=== PATIENT | female | born 1950 | race Caucasian/White ===

== ENCOUNTER → 2017-04-09 | Outpatient (CLI) | payer SELFPAY ==
[2017-04-09 20:11] LABS: Basophils # (A) 0.1 k/uL (0-0.2); Basophils % (A) 1 %; CH 28.1; CHCM 31.4; Eosinophils # (A) 0.4 k/uL (0-0.7); Eosinophils % (A) 3 %; HCT 43.3 % (34.0-46.0); HDW 2.06; HGB 13.6 gm/dL (11.4-16.0); Luc # (Auto) 0.18; Luc % (Auto) 2; Lymphocytes # (A) 3.2 k/uL (1.0-4.8); Lymphocytes % (A) 29 %; MCH 28.3 pg (25.0-35.0); MCHC 31.5 g/dL (31.0-37.0); MCV 89.7 fL (80.0-100.0); Mean Platelet Volume 7.1; Monocytes # (A) 0.6 k/uL (0-1.0); Monocytes % (A) 6 %; Neutrophils # (A) 6.7 k/uL (1.3-7.7); Neutrophils % (A) 60 %; RBC 4.83 m/uL (3.80-5.40); WBC 11.1 k/uL (3.8-10.6); WBC (Perox) 10.88
[2017-04-09 20:18] LABS: ALT 27 U/L (9-52); AST 26 U/L (14-36); Alkaline Phosphatase 200 U/L (38-126); Amylase 57 U/L (30-110); Anion Gap 13 mmol/L; Blood Urea Nitrogen 8 mg/dL (7-17); Calcium 9.8 mg/dL (8.4-10.2); Carbon Dioxide 22 mmol/L (22-30); Chloride 102 mmol/L (98-107); Glucose 104 mg/dL (74-99); Non-African American GFR(MDRD) 56 (>60 ml/min/1.73 sqM); Potassium 4.2 mmol/L (3.5-5.1); Sodium 137 mmol/L (137-145); Total Bilirubin 0.8 mg/dL (0.2-1.3); Total Protein 8.4 g/dL (6.3-8.2)
[2017-04-15 20:21] LABS: Bone % 27 % (16-56); Bone U/L 48 U/L (5-58); Intestinal % 0 % (< 14); Intestinal U/L 0 U/L (< 15); Liver % 73 % (44-84); Liver U/L 130 U/L (5-93)
== END | disposition home or self-care (01) ==
LOC: MMGSC 14:44
PROVIDERS: ATTEND Family Medicine
DX: R11.0 Nausea (principal); R10.9 Unspecified abdominal pain; R74.8 Abnormal levels of other serum enzymes
CPT/HCPCS: 36415; 80053; 82150; 83690; 84080; 85025

== ENCOUNTER 2019-08-06 14:37 | Observation (INO) | payer MEDICARE ==
[2019-08-06] MEDS ORDERED: NITROGLYCERIN OINT 1 INCH/GM PACKET TOPICAL STA (15:01)
--- NOTE | 2019-08-06 15:23 | XR ---
EXAMINATION TYPE: XR chest 2V DATE OF EXAM: 08/06/2019 COMPARISON: 03/21/2015 HISTORY: Chest pain TECHNIQUE: Frontal and lateral views of the chest are obtained. FINDINGS: Heart is normal. Lungs are clear of consolidation. There is a left axillary pacemaker. The re are chest leads. There is no pleural effusion. There is spurring in the thoracic spine. IMPRESSION: No active cardiac pulmonary disease. Normal heart. No change.
--- NOTE | 2019-08-06 15:27 | ED ---
General Adult HPI - General Chief complaint: Chest Pain Stated complaint: Chest Pain sent by ME Time Seen by Provider: 08/06/19 14:40 Source: patient, RN notes reviewed Mode of arrival: wheelchair Limitations: no limitations - History of Present Illness Initial comments: This is a 69-year-old female has a past medical history significant for having had a heart attack in the past as well as a pacemaker. Patient also states she has high blood pressure high cholesterol. Patient states she also has a family history of heart disease. Patient comes in today complaining of right-sided chest pain that radiates up into her neck and into her back. Patient states this all began after she had a stressful conversation with her daughter yesterday. Patient states the pain is intermittent and is currently there again. Patient states aspirin did seem to help it. Patient received aspirin at the urgent care prior to coming to here. Patient states she's also short of breath with the pain. Patient denies any diaphoresis or nausea or vomiting. Patient denies belly pain patient denies any leg swelling or calf tenderness. Patient denies headache patient denies numbness or weakness per patient denies lightheadedness or dizziness. Patient denies any recent fever chills or cough. - Related Data Home Medications Medication Instructions Recorded Confirmed Aspirin EC [Ecotrin Low Dose] 81 mg PO HS 08/06/19 08/06/19 Diltiazem HCl [Diltiazem ER] 240 mg PO DAILY 08/06/19 08/06/19 Losartan/Hydrochlorothiazide 1 tab PO DAILY 08/06/19 08/06/19 [Losartan-Hctz 100-25 mg Tab] Rosuvastatin Calcium [Crestor] 10 mg PO HS 08/06/19 08/06/19 Zolpidem Tartrate [Ambien] 10 mg PO HS 08/06/19 08/06/19 Allergies Allergy/AdvReac Type Severity Reaction Status Date / Time nitroglycerin Allergy Nausea & Verified 08/06/19 16:20 Vomiting & Diarrhea Review of Systems ROS Statement: Those systems with pertinent positive or pertinent negative responses have been documented in the HPI. ROS Other: All systems not noted in ROS Statement are negative. Past Medical History Past Medical History: Coronary Artery Disease (CAD), Chest Pain / Angina, Hyperlipidemia, Hypertension, Myocardial Infarction ([place]) History of Any Multi-Drug Resistant Organisms: None Reported Past Surgical History: Section, Cholecystectomy, Heart Catheterization, Pacemaker Past Psychological History: No Psychological Hx Reported Smoking Status: Never smoker Past Alcohol Use History: None Reported Past Drug Use History: None Reported General Exam - General Exam Comments Initial Comments: GENERAL: Patient is well-developed and well-nourished. Patient is nontoxic and well- hydrated and is in mild distress. ENT: Neck is soft and supple. No significant lymphadenopathy is noted. Oropharynx is clear. Moist mucous membranes. Neck has full range of motion without eliciting any pain. EYES: The sclera were anicteric and conjunctiva were pink and moist. Extraocular movements were intact and pupils were equal round and reactive to light. Eyelids were unremarkable. PULMONARY: Unlabored respirations. Good breath sounds bilaterally. No audible rales rh onchi or wheezing was noted. CARDIOVASCULAR: There is a regular rate and rhythm without any murmurs gallops or rubs. ABDOMEN: Soft and nontender with normal bowel sounds. No palpable organomegaly was noted. There is no palpable pulsatile mass. SKIN: Skin is clear with no lesions or rashes and otherwise unremarkable. NEUROLOGIC: Patient is alert and oriented x3. Cranial nerves II through XII are grossly intact. Motor and sensory are also intact. Normal speech, volume and content. Symmetrical smile. MUSCULOSKELETAL: Normal extremities with adequate strength and full range of motion. LYMPHATICS: No significant lymphadenopathy is noted PSYCHIATRIC: Normal psychiatric evaluation. Limitations: no limitations Course Vital Signs 08/06/19 08/06/19 14:42 15:58 Temperature 97.9 F Pulse Rate 84 78 Respiratory 18 18 Rate Blood Pressure 142/85 153/83 O2 Sat by Pulse 98 97 Oximetry Medical Decision Making - Medical Decision Making EKG shows a sinus rhythm at 89 bpm AR interval is 212 QRS is 82 QT interval 442 QTC is 537. Patient has an occasional paced beat. Patient has no ST segment elevation or depression. I started the patient heparin for unstable angina like symptoms. I spoke with Dr. Ragland she agreed to admit the patient admitted the patient I wrote admitting orders I consulted cardiology. I continued heparin and aspirin and Nitropaste on the floor. Patient continued to have intermittent pain while in the emergency department. - Lab Data Result diagrams: 08/06/19 15:05 08/06/19 15:05 Lab Results 08/06/19 08/06/19 08/06/19 Range/Units 15:05 15:05 15:05 WBC 16.9 H (3.8-10.6) k/uL RBC 4.36 (3.80-5.40) m/uL Hgb 12.1 (11.4-16.0) gm/dL Hct 37.0 (34.0-46.0) % MCV 84.9 (80.0-100.0) fL MCH 27.8 (25.0-35.0) pg MCHC 32.7 (31.0-37.0) g/dL RDW 13.0 (11.5-15.5) % Plt Count 445 (150-450) k/uL Neutrophils % 71 % Lymphocytes % 19 % Monocytes % 6 % Eosinophils % 2 % Basophils % 1 % Neutrophils # 12.0 H (1.3-7.7) k/uL Lymphocytes # 3.3 (1.0-4.8) k/uL Monocytes # 0.9 (0-1.0) k/uL Eosinophils # 0.3 (0-0.7) k/uL Basophils # 0.1 (0-0.2) k/uL PT 9.5 (9.0-12.0) sec INR 0.9 (<1.2) APTT 27.9 (22.0-30.0) sec Sodium 134 L (137-145) mmol/L Potassium 4.4 (3.5-5.1) mmol/L Chloride 96 L (98-107) mmol/L Carbon Dioxide 24 (22-30) mmol/L Anion Gap 14 mmol/L BUN 13 (7-17) mg/dL Creatinine 1.06 H (0.52-1.04) mg/dL Est GFR (CKD-EPI)AfAm 63 (>60 ml/min/1.73 sqM) Est GFR (CKD-EPI)NonAf 54 (>60 ml/min/1.73 sqM) Glucose 128 H (74-99) mg/dL Calcium 9.7 (8.4-10.2) mg/dL Magnesium 2.0 (1.6-2.3) mg/dL Total Bilirubin 0.5 (0.2-1.3) mg/dL AST 34 (14-36) U/L ALT 20 (9-52) U/L Alkaline Phosphatase 154 H (38-126) U/L Troponin I (0.000-0.034) ng/mL Total Protein 8.4 H (6.3-8.2) g/dL Albumin 4.3 (3.5-5.0) g/dL 08/06/19 Range/Units 15:05 WBC (3.8-10.6) k/uL RBC (3.80-5.40) m/uL Hgb (11.4-16.0) gm/dL Hct (34.0-46.0) % MCV (80.0-100.0) fL MCH (25.0-35.0) pg MCHC (31.0-37.0) g/dL RDW (11.5-15.5) % Plt Count (150-450) k/uL Neutrophils % % Lymphocytes % % Monocytes % % Eosinophils % % Basophils % % Neutrophils # (1.3-7.7) k/uL Lymphocytes # (1.0-4.8) k/uL Monocytes # (0-1.0) k/uL Eosinophils # (0-0.7) k/uL Basophils # (0-0.2) k/uL PT (9.0-12.0) sec INR (<1.2) APTT (22.0-30.0) sec Sodium (137-145) mmol/L Potassium (3.5-5.1) mmol/L Chloride (98-107) mmol/L Carbon Dioxide (22-30) mmol/L Anion Gap mmol/L BUN (7-17) mg/dL Creatinine (0.52-1.04) mg/dL Est GFR (CKD-EPI)AfAm (>60 ml/min/1.73 sqM) Est GFR (CKD-EPI)NonAf (>60 ml/min/1.73 sqM) Glucose (74-99) mg/dL Calcium (8.4-10.2) mg/dL Magnesium (1.6-2.3) mg/dL Total Bilirubin (0.2-1.3) mg/dL AST (14-36) U/L ALT (9-52) U/L Alkaline Phosphatase (38-126) U/L Troponin I <0.012 (0.000-0.034) ng/mL Total Protein (6.3-8.2) g/dL Albumin (3.5-5.0) g/dL Critical Care Time Critical Care Time: Yes Total Critical Care Time: 35 Disposition Clinical Impression: Unstable angina pectoris Disposition: ADMITTED IP TO THIS HOSP Referrals: Ledy Muniz MD [Primary Care Provider] - 1-2 days Time of Disposition: 16:30
[2019-08-06 15:31] LABS: Basophils # (A) 0.1 k/uL (0-0.2); Basophils % (A) 1 %; Eosinophils # (A) 0.3 k/uL (0-0.7); Eosinophils % (A) 2 %; HGB 12.1 gm/dL (11.4-16.0); Lymphocytes # (A) 3.3 k/uL (1.0-4.8); Lymphocytes % (A) 19 %; MCH 27.8 pg (25.0-35.0); MCHC 32.7 g/dL (31.0-37.0); MCV 84.9 fL (80.0-100.0); Mean Platelet Volume 6.3; Monocytes # (A) 0.9 k/uL (0-1.0); Monocytes % (A) 6 %; Neutrophils % (A) 71 %; Platelet Count 445 k/uL (150-450); RBC 4.36 m/uL (3.80-5.40); WBC 16.9 k/uL (3.8-10.6)
[2019-08-06 15:40] LABS: INR 0.9 (<1.2); Partial Thromboplastin Time 27.9 sec (22.0-30.0); Prothrombin Time 9.5 sec (9.0-12.0)
[2019-08-06 15:45] LABS: Albumin 4.3 g/dL (3.5-5.0); Calcium 9.7 mg/dL (8.4-10.2); Total Bilirubin 0.5 mg/dL (0.2-1.3); Total Protein 8.4 g/dL (6.3-8.2)
[2019-08-06 15:47] LABS: Potassium 4.4 mmol/L (3.5-5.1)
[2019-08-06] MEDS ORDERED: HEPARIN SODIUM,PORCINE 5,000 UNIT/ML 1 ML VIAL IV ONE (16:24)
[2019-08-06] MEDS ORDERED: HEPARIN SOD,PORK IN 0.45% NACL 25,000 UNIT in 0.45% NACL 1 250ML.BAG IV SCH (16:30)
[2019-08-06] MEDS ORDERED: NITROGLYCERIN SL TABS 0.4 MG TAB SUBLINGUAL PRN (16:31)
[2019-08-06] MEDS ORDERED: NALOXONE 0.4 MG/ML 1 ML VIAL IV PRN (17:28)
[2019-08-06] MEDS ORDERED: ALPRAZolam 0.5 MG TAB PO PRN (17:28)
[2019-08-06] MEDS ORDERED: traMADol 50 MG TAB PO PRN (17:28)
[2019-08-06] MEDS ORDERED: MELATONIN 3 MG TABLET PO PRN (17:28)
[2019-08-06] MEDS ORDERED: ACETAMINOPHEN TAB 325 MG TAB PO PRN (17:28)
[2019-08-06 17:32] VITALS: RESP 18
[2019-08-06 17:41] VITALS: BMI 45.3
[2019-08-06] MEDS: NITROGLYCERIN OINT 1 INCH/GM PACKET TOPICAL SCH ×2 (17:44→22:50)
--- NOTE | 2019-08-06 17:54 | P.HPIM ---
History of Present Illness H&P Date: 08/06/19 Chief Complaint: chest pain Patient is a 69-year-old female with a past medical history of myocardial infarction, hypertension, dyslipidemia, permanent pacemaker, and prior TIA who presented to the emergency department with chest pain. Patient states she was under stress due to her son and daughter having issues. In the emergency department she underwent an extensive evaluation. On arrival her vital signs were within normal limits. Laboratory analysis demonstrated an elevated white blood count. 16.9, troponin was normal, creatinine was 1.06 which is near baseline for the patient. EKG was performed which showed normal sinus rhythm at a rate of 89 with a first-degree AV block and prolonged QT. She received a dose of aspirin and had a nitro patch placed. Arrangements are made for admission for observation. Patient seen and examined at bedside in the emergency department. She states that she has had increased stress recently due to her son and [id number] not getting along and no longer living together. Then her daughter called her last night concerned about her own marriage and high blood pressure issues. The patient then began having right sided arm pain that radiated up into her chest and into her back. She states that she had some mild shortness of breath, felt lightheaded, was seen some blurry vision, and felt slightly nauseous. She took an aspirin and felt slightly better. She then has had intermittent chest pain since that time. She has not had any numbness or tingling, she did not have any radiation to her jaw or arm. She reports that the pain was a 9 out of 10. She tried some extra strength Tylenol this afternoon which helped slightly but did not offer significant relief so she presented to the emergency department. She feels as though this possible anxiety or panic attack but was concerned due to her prior history. She reports that she had a cough productive of yellow sputum for about a week but that has gotten better. She denies any other recent changes in medications. She follows with Dr. [facility] and last saw him approximately one month ago. She reports that she typically has high blood pressure at home and it ranges anywhere from 120s to 180s. It is especially sensitive to anxiety and typically is high when she feels anxious. Review of Systems Pertinent positives and negatives as discussed in HPI, a complete review of systems was performed and all other systems are negative. Past Medical History Past Medical History: Coronary Artery Disease (CAD), Chest Pain / Angina, Hyperlipidemia, Hypertension, Myocardial Infarction ([place]) Additional Past Medical History / Comment(s): TIA 3 History of Any Multi-Drug Resistant Organisms: None Reported Past Surgical History: Section, Cholecystectomy, Heart Catheterization, Pacemaker Past Psychological History: No Psychological Hx Reported Smoking Status: Never smoker Past Alcohol Use History: None Reported Past Drug Use History: None Reported Additional History: Lives with her , intermittently uses a walker she's having pain in her legs - Past Family History Father Family Medical History: Diabetes Mellitus, Myocardial Infarction ([place]) Sister(s) Additional Family Medical History / Comment(s): enlarged heart at age 50 Medications and Allergies Home Medications Medication Instructions Recorded Confirmed Type Aspirin EC [Ecotrin Low Dose] 81 mg PO HS 08/06/19 08/06/19 History Diltiazem HCl [Diltiazem ER] 240 mg PO DAILY 08/06/19 08/06/19 History Losartan/Hydrochlorothiazide 1 tab PO DAILY 08/06/19 08/06/19 History [Losartan-Hctz 100-25 mg Tab] Rosuvastatin Calcium [Crestor] 10 mg PO HS 08/06/19 08/06/19 History Zolpidem Tartrate [Ambien] 10 mg PO HS 08/06/19 08/06/19 History Allergies Allergy/AdvReac Type Severity Reaction Status Date / Time nitroglycerin Allergy Nausea & Verified 08/06/19 16:20 Vomiting & Diarrhea Physical Exam Osteopathic Statement: *. No significant issues noted on an osteopathic structural exam other than those noted in the History and Physical/Consult. Vitals: Vital Signs Temp Pulse Pulse Resp BP BP Pulse Ox 08/06/19 17:19 97.7 F 90 18 178/89 97 08/06/19 17:00 98.2 F 87 16 171/81 98 08/06/19 15:58 78 18 153/83 97 08/06/19 14:42 97.9 F 84 18 142/85 98 Intake and Output 08/06/19 08/06/19 08/06/19 06:59 14:59 22:59 Other: Weight 109.316 kg General: non toxic, no distress, appears at stated age, Obese Derm: no unusual rashes/lesions no unusual ecchymoses, warm, dry Head: atraumatic, normocephalic, symmetric Eyes: EOMI, no lid lag, anicteric sclera, pupils equal round reactive to light ENT: Nose and ears atraumatic, no thrush, no pharyngeal erythema Neck: No thyromegaly, no cervical lymphadenopathy, trachea midline, supple Mouth: no lip lesion, mucus membranes moist Cardiovascular: S1S2 reg, no murmur, positive posterior tibial pulse bilateral, trace edema, capillary refill less than 2 seconds, chest pain no reproducible Lungs: Decreased breath sounds bilateral, no rhonchi, no rales , no accessory muscle use Abdominal: soft, nontender to palpation, no guarding, no appreciable organomegaly, normal bowel sounds Ext: no gross muscle atrophy, muscle strength 5 out of 5 in all 4 extremities grossly, no contractures, Neuro: CN II-XI grossly intact, light touch intact all 4 extremities, finger to nose within normal limits, Psych: Alert, oriented, appropriate affect Results CBC & Chem 7: 08/06/19 15:05 08/06/19 15:05 Labs: Abnormal Lab Results - Last 24 Hours (Table) 08/06/19 08/06/19 Range/Units 15:05 15:05 WBC 16.9 H (3.8-10.6) k/uL Neutrophils # 12.0 H (1.3-7.7) k/uL Sodium 134 L (137-145) mmol/L Chloride 96 L (98-107) mmol/L Creatinine 1.06 H (0.52-1.04) mg/dL Glucose 128 H (74-99) mg/dL Alkaline Phosphatase 154 H (38-126) U/L Total Protein 8.4 H (6.3-8.2) g/dL Chest x-ray: report reviewed Thrombosis Risk Factor Assmnt - DVT/VTE Prophylaxis DVT/VTE Prophylaxis: Low risk, early ambulation encouraged Assessment and Plan Assessment: Chest pain -Most likely secondary to acute anxiety but patient does have a significant coronary history -Telemetry, serial troponins, aspirin, nitro, on heparin drip, - Heart Score 5 - Cardio consult HTN, elevated - Xanax X 1 - resume home medications - follow BP, if not improved with control of anxiety then will need to start additional medications Anxiety - situation trial of Xanax - Follow-up with PCP [facility] - lipide profile in AM - statin Morbid obeisty BMI 44.1 - Outpatient structured weight loss The patient is placed in observation with an anticipated less than 2 midnight stay for evaluation of chest pain. Surrogate decision-maker: CODE STATUS: Full DVT prophylaxis: early ambulation Discussed with: Patient, , ED physician Anticipated discharge date: 24- [address]: home A total of 55 minutes was spent on the care of this complex patient more than 50% of the time was spent in counseling and care coordination.
[2019-08-06 20:41] LABS: Appearance,Urine Clear (Clear); Bilirubin,Urine Negative (Negative); Blood,Urine Negative (Negative); Color,Urine Yellow; Glucose,Urine (UA) Negative (Negative); Ketones,Urine Negative (Negative); Leukocyte Esterase,Urine Negative (Negative); Nitrite,Urine Negative (Negative); Protein,Urine Negative (Negative); Specific Gravity,Urine 1.012 (1.001-1.035); Urobilinogen,Urine <2.0 mg/dL (<2.0)
[2019-08-06] MEDS ORDERED: ATORVASTATIN 20 MG TAB PO SCH (21:00)
[2019-08-06] MEDS ORDERED: ZOLPIDEM 10 MG TAB PO PRN (21:00)
[2019-08-06] MEDS ORDERED: ASPIRIN 81 MG PO SCH (21:00)
[2019-08-06] MEDS ORDERED: HEPARIN SODIUM,PORCINE 5,000 UNIT/ML 1 ML VIAL IV PRN (21:09)
[2019-08-06 22:49] VITALS: TEMP 97.7
[2019-08-07 04:13] LABS: Cholesterol 195 mg/dL (<200); HDL Cholesterol 48 mg/dL (40-60); LDL Cholesterol,Calculated 117 mg/dL (0-99); Triglycerides 150 mg/dL (<150)
[2019-08-07] MEDS: NITROGLYCERIN OINT 1 INCH/GM PACKET TOPICAL SCH (06:23)
[2019-08-07 08:02] VITALS: BP 130/78; PULSE 84
[2019-08-07 08:35] LABS: HCT 33.7 % (34.0-46.0); HGB 10.9 gm/dL (11.4-16.0); MCH 28.3 pg (25.0-35.0); MCHC 32.4 g/dL (31.0-37.0); MCV 87.5 fL (80.0-100.0); Mean Platelet Volume 8.3; Platelet Count 439 k/uL (150-450); RBC 3.85 m/uL (3.80-5.40); RDW 13.5 % (11.5-15.5); WBC 13.9 k/uL (3.8-10.6)
[2019-08-07] MEDS ORDERED: LOSARTAN-HCTZ 50-12.5 MG 1 EACH TAB PO SCH ×2 (09:00)
[2019-08-07] MEDS ORDERED: DILTIAZEM CD 240 MG CAP.ER.24H PO SCH (09:00)
[2019-08-07] MEDS ORDERED: ASPIRIN 325 MG TAB PO SCH (09:00)
--- NOTE | 2019-08-07 09:17 | CONS ---
CONSULTATION Mikaela Chapin is a lady with history of obesity, hypertension and hypercholesterolemia who has a sick sinus syndrome and has a permanent pacemaker. She had a stressful situation at home with her son and daughter and after making a phone call, she felt very tense, exhausted, tightness in the chest and pressure and went to the urgent care and was then transferred from there to this place. I am not sure if this lady had a prior myocardial infarction or even CAD diagnosis. She does have sick sinus syndrome, obesity and hypertension and had a permanent pacemaker in the past. She is resting comfortably without symptoms. She feels a lot better. Her troponins are normal. Her discomfort in her chest was actually on the right side of the chest with radiation to the right shoulder. Quality is also atypical. She is resting comfortably without symptoms. PAST MEDICAL HISTORY: 1. Hypertension. 2. Sick sinus syndrome with a permanent pacemaker. 3. Hyperlipidemia. 4. Obesity. MEDICATIONS: At home include diltiazem extended release 240 mg daily, Ambien, Crestor 10 mg daily, losartan HCTZ 100/25 one tab daily, aspirin 81 mg daily. The patient was somewhat intolerant to beta blockers. PHYSICAL EXAMINATION: Blood pressure is 130/70, pulse rate is 80 per minute and regular. HEENT unremarkable. Fundus was not examined by me. Neck is somewhat short and thick. No JVD or carotid bruit. S1-S2 heard normally but distantly. Lungs reveal diminished air entry both lung vazquez. Abdomen is soft, nontender. Lower extremities reveal palpable pulses. No edema. Central nervous system is normal. EKG revealed a sinus mechanism with an occasional paced beat, nonspecific ST and T-wave changes. No acute findings. LABORATORY DATA: Laboratory data revealed unremarkable troponins. IMPRESSION: 1. Atypical chest pain. 2. Anxiety. 3. History of sick sinus syndrome with a permanent pacemaker. 4. Hypertension. 5. Hyperlipidemia. RECOMMENDATIONS: I am recommending that we increase activity and see how she does. If she has no further symptoms, she can be discharged and I will perform a stress test as an outpatient. I discussed my thoughts in detail with the patient. Thank you very much for the consult. MMODL / IJN: [id number] /
--- NOTE | 2019-08-07 10:36 | P.DS ---
Providers Date of admission: 08/06/19 16:35 Expected date of discharge: 08/07/19 Attending physician: Le Ragland DO Consults: 08/06/19 16:31 Consult Physician Urgent Consulting Provider: [facility] Consult Reason/Comments: Unstable angina Do you want consulting provider notified?: Yes Primary care physician: Ledy Muniz [facility] Course: Discharge Diagnosis: Chest suspect secondary to acute anxiety attack Hypertensive urgency on arrival Acute anxiety Dyslipidemia Morbid obesity with BMI 44.1 Hospital Course: Patient is a 69-year-old female with a past medical history of myocardial infarction, hypertension, dyslipidemia, permanent pacemaker due to sick sinus syndrome, and prior TIA who presented to the emergency department with chest pain. Patient states she was under stress due to her son and daughter having issues. In the emergency department she underwent an extensive evaluation. On arrival her vital signs were within normal limits. Laboratory analysis demonstrated an elevated white blood count. 16.9, troponin was normal, creatinine was 1.06 which is near baseline for the patient. EKG was performed which showed normal sinus rhythm at a rate of 89 with a first-degree AV block and prolonged QT. She received a dose of aspirin and had a nitro patch placed. Arrangements were for observation for acute coronary syndrome. Repeat troponins were negative. Consider trial of Xanax which helped improve her symptoms. She was seen by cardiology who felt she was appropriate for outpatient stress testing. Cholesterol levels were slightly elevated with an LDL of 117 and this will be followed by cardiology in the clinic. She felt as though Xanax helped her with her acute anxiety. I did radiate to supply her with a 7 day supply of Xanax to take as needed twice a day. She'll follow up with her primary care physician Dr. Muniz next week to look for a more permanent solution for her anxiety. I did discuss with her that Xanax can become addictive and I do not remember commended for long-term anxiety. She is also going to try to distance herself from anxiety provoking situations. Patient seen and examined at bedside.No chest pain, shortness of breath, no nausea today, Xanax yesterday helped relieve symptoms and made her feel much better Vital signs reviewed and stable. General: non toxic, no distress, appears at stated age, obese Derm: warm, dry Head: atraumatic, normocephalic, symmetric Eyes: EOMI, no lid lag, anicteric sclera Mouth: no lip lesion, mucus membranes moist Cardiovascular: S1S2 reg, no murmur, positive posterior tibial pulse bilateral, Lungs: CTA bilateral, no rhonchi, no rales , no accessory muscle use Psych: Alert, oriented, appropriate affect A total of 25 minutes of time were spent preparing this complex discharge summary . Plan - Discharge Summary Discharge Rx Participant: No New Discharge Prescriptions: New ALPRAZolam [Xanax] 0.5 mg PO BID PRN #14 tablet PRN Reason: Anxiety Continue Zolpidem Tartrate [Ambien] 10 mg PO HS Rosuvastatin Calcium [Crestor] 10 mg PO HS Losartan/Hydrochlorothiazide [Losartan-Hctz 100-25 mg Tab] 1 tab PO DAILY Aspirin EC [Ecotrin Low Dose] 81 mg PO HS Diltiazem HCl [Diltiazem 24Hr ER] 240 mg PO DAILY Discharge Medication List Aspirin EC [Ecotrin Low Dose] 81 mg PO HS 08/06/19 [History] Diltiazem HCl [Diltiazem 24Hr ER] 240 mg PO DAILY 08/06/19 [History] Losartan/Hydrochlorothiazide [Losartan-Hctz 100-25 mg Tab] 1 tab PO DAILY 08/06/19 [History] Rosuvastatin Calcium [Crestor] 10 mg PO HS 08/06/19 [History] Zolpidem Tartrate [Ambien] 10 mg PO HS 08/06/19 [History] ALPRAZolam [Xanax] 0.5 mg PO BID PRN #14 tablet 08/07/19 [Rx] Follow up Appointment(s)/Referral(s): Prince Noonan MD [STAFF PHYSICIAN] - 1 Week Ledy Muniz MD [Primary Care Provider] - 1-2 days Activity/Diet/Wound Care/Special Instructions: Activity: As tolerated Diet: Hearth healthy Special Instructions: Return to the emergency with worsening chest pain
== END 2019-08-07 10:58 | disposition home or self-care (01) ==
LOC: EC 14:37 → 1SOBS 16:35
PROVIDERS: ADMIT Internal Medicine; ATTEND Internal Medicine
DX: R07.89 Other chest pain (principal); R06.02 Shortness of breath; M79.601 Pain in right arm; R42 Dizziness and giddiness; R11.0 Nausea; R05 Cough; H53.8 Other visual disturbances; I16.0 Hypertensive urgency; F41.9 Anxiety disorder, unspecified; E78.5 Hyperlipidemia, unspecified; E78.00 Pure hypercholesterolemia, unspecified; I10 Essential (primary) hypertension; D72.829 Elevated white blood cell count, unspecified; I25.10 Atherosclerotic heart disease of native coronary artery without angina pectoris; E66.01 Morbid (severe) obesity due to excess calories; Z68.41 Body mass index [BMI] 40.0-44.9, adult; I44.0 Atrioventricular block, first degree; I25.2 Old myocardial infarction; Z95.0 Presence of cardiac pacemaker; Z86.73 Personal history of transient ischemic attack (TIA), and cerebral infarction without residual deficits; Z79.82 Long term (current) use of aspirin; Z79.899 Other long term (current) drug therapy; Z88.8 Allergy status to other drugs, medicaments and biological substances; Z90.49 Acquired absence of other specified parts of digestive tract; Z83.3 Family history of diabetes mellitus; Z82.49 Family history of ischemic heart disease and other diseases of the circulatory system
CPT/HCPCS: 96376; 96365; 99291; 36415; 93005; 80061; 80053; 83735; 84484 ×2; 85025; 85027; 85610; 85730 ×2; 81003; 71046; G0378 ×2; J1644 ×2

== ENCOUNTER → 2020-06-28 | Day surgery (SDC) | payer MEDICARE ==
[2020-06-25 15:50] VITALS: BMI 37.9
[2020-06-28] MEDS: SODIUM CHLORIDE 0.9% 1,000 ML IV SCH ×2 (07:12→07:14)
[2020-06-28] MEDS: IOPAMIDOL-370 50ML BTL INJ ONE ×2 (07:23→07:36)
[2020-06-28 07:36] LABS: Calcium 9.4 mg/dL (8.4-10.2); Potassium 4.2 mmol/L (3.5-5.1)
[2020-06-28 07:50] VITALS: RESP 16
[2020-06-28 08:23] VITALS: BP 174/77
[2020-06-28 08:24] VITALS: PULSE 68; TEMP 98.7
--- NOTE | 2020-06-28 15:28 | P.PCN ---
Preoperative Diagnosis: Diagnosis Low atrial impedances, noise in the atrial lead Chronically elevated RV thresholds Intermittent RV pacing about 10% Pacemaker device approaching CAM Procedures performed Cinefluoroscopy of the leads Left upper extremity venogram Cinefluoroscopy of the leads was performed right atrial and RV leads were in stable position in the right atrial appendage and the RV. No fractures or breaks were appreciated 15 mL of IV dye was injected in the left arm and venography of the left axillary and subclavian vein was performed. A very mild subclavian vein stenosis was noted. This can accommodate to 15 leads Plan Discussed with the patient Once the device at CAM I will implant in atrial lead, screw-in lead as well as either a new RV lead or and LV lead We will consider the Medtronic [id number] leads were implantation
== END ==
LOC: CATHEP 06:32
PROVIDERS: ATTEND Internal Medicine Clinical Cardiac Electrophysiology
DX: T82.897A Other specified complication of cardiac prosthetic devices, implants and grafts, initial encounter (principal); T82.118A Breakdown (mechanical) of other cardiac electronic device, initial encounter; I87.1 Compression of vein; I10 Essential (primary) hypertension; E78.00 Pure hypercholesterolemia, unspecified; F41.9 Anxiety disorder, unspecified; I49.5 Sick sinus syndrome; E78.5 Hyperlipidemia, unspecified; E66.3 Overweight; Z68.37 Body mass index [BMI] 37.0-37.9, adult; Z72.0 Tobacco use; Z79.82 Long term (current) use of aspirin; Z79.899 Other long term (current) drug therapy
CPT/HCPCS: 36005; 75820; 76000; 80048; Q9967

== ENCOUNTER → 2020-12-13 | Outpatient (CLI) | payer MEDICARE | END | disposition home or self-care (01) | LOC: LABWHC1 12:23 | PROVIDERS: ATTEND Family Medicine | DX: R05 Cough (principal); R09.89 Other specified symptoms and signs involving the circulatory and respiratory systems | CPT/HCPCS: U0003; C9803; U0005 ==

== ENCOUNTER → 2021-05-10 | Outpatient (CLI) | payer MEDICARE ==
[2021-05-10 13:36] LABS: HCT 36.2 % (34.0-46.0); HGB 11.6 gm/dL (11.4-16.0); MCH 28.1 pg (25.0-35.0); MCV 87.8 fL (80.0-100.0); Mean Platelet Volume 6.8; Platelet Count 388 k/uL (150-450); RBC 4.13 m/uL (3.80-5.40); WBC 8.3 k/uL (3.8-10.6)
[2021-05-10 13:52] LABS: Potassium 4.2 mmol/L (3.5-5.1)
== END | disposition home or self-care (01) ==
LOC: LABPAT 12:49
PROVIDERS: ATTEND Internal Medicine Clinical Cardiac Electrophysiology
DX: Z01.812 Encounter for preprocedural laboratory examination (principal); I49.5 Sick sinus syndrome
CPT/HCPCS: 80051; 82565; 84520; 85027

== ENCOUNTER 2021-05-16 06:02 | Day surgery (SDC) | payer MEDICARE ==
[2021-05-14 14:37] VITALS: BMI 38.9
[2021-05-16] MEDS ORDERED: SODIUM CHLORIDE 0.9% 1,000 ML IV SCH ×2 (06:05)
[2021-05-16] MEDS ORDERED: ceFAZolin 1 GM in SODIUM CHLORIDE 0.9% 250 ML IRRIGATION PRN (06:05)
[2021-05-16 06:48] VITALS: TEMP 97.9
[2021-05-16] MEDS ORDERED: ePHEDrine SULFATE/0.9% NACL/PF 50 MG/5 ML SYRINGE IV ONE (07:17)
[2021-05-16] MEDS ORDERED: MIDAZOLAM 2 MG/2 ML VIAL ONE (07:17)
[2021-05-16] MEDS ORDERED: fentaNYL (PF) 50 MCG/ML 2 ML AMP ONE (07:17)
[2021-05-16] MEDS ORDERED: PROPOFOL 10 MG/ML 20 ML VIAL IV ONE (07:17)
[2021-05-16] MEDS ORDERED: diphenhydrAMINE 50 MG/ML 1 ML VIAL ONE (07:17)
[2021-05-16] MEDS ORDERED: IOPAMIDOL-250 50ML BTL IV ONE (07:53)
[2021-05-16] MEDS ORDERED: LIDOCAINE 1% INJ 10MG/ML (20 ML MDV) ONE (08:04)
[2021-05-16] MEDS ORDERED: LIDOCAINE 1% INJ 10MG/ML (20 ML MDV) SQ ONE ×2 (08:25→08:35)
[2021-05-16] MEDS ORDERED: VANCOMYCIN 1,500 MG in SODIUM CHLORIDE 0.9% 250 ML IVPB STA (09:27)
[2021-05-16] MEDS ORDERED: ACETAMINOPHEN TAB 325 MG TAB PO PRN (10:03)
[2021-05-16] MEDS ORDERED: HYDROcodone/APAP 5-325MG 1 EACH TAB PO PRN (10:03)
--- NOTE | 2021-05-16 10:03 | P.EPPROC ---
- EP Procedure Note Electrophysiology Procedure Note: Left upper extremity venogram 10 mL IV dye injected in the left arm Patent left cephalic and left axillary/subclavian vein Plan Proceed with dual-chamber pacemaker generator change and implantation of a new atrial lead Extended procedure This was a long procedure for the following reasons This was a subcutaneous pocket fairly high up close to the shoulder The capsule was heavily calcified Near-total capsulectomy of this calcified capsule was performed A completely new subfascial pocket was made more Blood to the current pocket Following that while axillary vein access was obtained expeditiously, regular wire would not pass down from the innominate vein into the SVC RA An advantage by was used and with some difficulty was able to negotiate the SVC innominate junction and passed the wire down the IVC A long sheath 25 cm in length was placed across the SVC innominate junction to allow for smooth placement of a right atrial lead Along of 52 cm right atrial lead him a screw-in, Medtronic was used and placed in the right atrial appendage Implantation of a new right atrial lead The chronic right atrial lead was applying lead implanted almost 20 years back The impedance was 100 ohms A new right atrial lead, Medtronic screw-in 52 cm, model #5076 and serial number [id number] was implanted in the right atrial appendage and screwed in Good current of injury P waves 2-3 mV pacing impedance 874 ohms and pacing threshold 1 V at 0.4 ms Adequate he was provided Good stability was documented before and after removing the long sheath The lead was secured to the underlying pectoralis muscle The chronic lead was disconnected from the old generator This was capped and then secured to the pectoralis muscle Generator change, dual-chamber The old dual-chamber [employer] generator was explanted The new generator was implanted, Medtronic Model number W1 DR 01 him a serial number [id number] The device was placed in the new subfascial pocket The wound was closed in 3 layers and dressed per protocol IV vancomycin was also administered through the procedure The patient tolerated the procedure well without any acute complications
[2021-05-16] MEDS ORDERED: ALPRAZolam 0.5 MG TAB PO PRN (10:06)
--- NOTE | 2021-05-16 10:39 | XR ---
EXAMINATION TYPE: XR chest 1V portable DATE OF EXAM: 05/16/2021 COMPARISON: 08/06/2019, 01/28/2021 HISTORY: Lead placement check TECHNIQUE: Single frontal view of the chest is obtained. FINDINGS: A multi lead pacemaker is seen. Be 2 leads overlying the right atrial region and a single lead overlying the right ventricular region no pneumothorax. Limited inspiration. Heart size stable with no overt failure. No sizable pleural ef fusion. Postsurgical change right shoulder with diffuse osteopenia and arthropathy left shoulder. IMPRESSION: 1. Pacemaker placement with no postprocedural complication.
[2021-05-16] MEDS ORDERED: ACETAMINOPHEN IV (For NPO) 1,000 MG in EMPTY BAG 1 BAG IVPB ONE (12:00)
[2021-05-16 12:13] VITALS: RESP 18
[2021-05-16 13:07] VITALS: BP 143/67; PULSE 67
[2021-05-17] MEDS ORDERED: NON FORMULARY DRUG (Losartan/Hydrochlorothiazide [Losartan-Hctz 100-25 Mg Tab] 1 EACH Tabl PO SCH (09:00)
== END 2021-05-16 16:03 | disposition home or self-care (01) ==
LOC: CATHEP 06:02
PROVIDERS: ATTEND Internal Medicine Clinical Cardiac Electrophysiology
DX: Z45.010 Encounter for checking and testing of cardiac pacemaker pulse generator [battery] (principal); Z20.822 Contact with and (suspected) exposure to COVID-19; I49.5 Sick sinus syndrome; I10 Essential (primary) hypertension; E78.5 Hyperlipidemia, unspecified; F17.210 Nicotine dependence, cigarettes, uncomplicated; E78.00 Pure hypercholesterolemia, unspecified; Z79.82 Long term (current) use of aspirin; Z79.899 Other long term (current) drug therapy; I25.2 Old myocardial infarction; I25.10 Atherosclerotic heart disease of native coronary artery without angina pectoris; Z86.73 Personal history of transient ischemic attack (TIA), and cerebral infarction without residual deficits; F41.9 Anxiety disorder, unspecified; K21.9 Gastro-esophageal reflux disease without esophagitis; Z88.8 Allergy status to other drugs, medicaments and biological substances
CPT/HCPCS: 33208; 87635; 71045; C1769 ×3; C1892 ×2; C1898; C1785; J2250; J1200; J0690; J2001; J3010; J2704; Q9966; 33216; 33228

== ENCOUNTER 2021-10-19 13:03 | Inpatient (IN) | payer MEDICARE ==
[2021-10-19] MEDS ORDERED: MORPHINE SULFATE 4 MG/ML SYRINGE IM STA (13:28)
--- NOTE | 2021-10-19 14:05 | XR ---
EXAMINATION TYPE: AP view pelvis and 2 views left hip: XR femur 2 views LT DATE OF EXAM: 10/19/2021 Comparison: None Clinical History: 71-year-old female with pain after fall Findings: SI joints appear intact as does the pubic symphysis. There is osteopenia. There is a impacted, slight ly rotated, and laterally angulated subcapital femoral neck fracture. No additional acute fractures seen of the mid to distal femur. Some underlying degenerative change at the medial lateral compartments of the knee. Impression: Osteopenia with an impacted, slightly rotated and angulated, subcapital left femoral neck fracture.
[2021-10-19 15:05] LABS: Basophils # (A) 0.1 k/uL (0-0.2); Basophils % (A) 0 %; Eosinophils # (A) 0.2 k/uL (0-0.7); Eosinophils % (A) 1 %; HCT 35.9 % (34.0-46.0); Lymphocytes # (A) 1.3 k/uL (1.0-4.8); Lymphocytes % (A) 10 %; MCH 29.9 pg (25.0-35.0); MCHC 33.5 g/dL (31.0-37.0); MCV 89.2 fL (80.0-100.0); Mean Platelet Volume 7.7; Monocytes # (A) 0.6 k/uL (0-1.0); Monocytes % (A) 5 %; Neutrophils # (A) 10.9 k/uL (1.3-7.7); Neutrophils % (A) 83 %; Platelet Count 330 k/uL (150-450); RBC 4.02 m/uL (3.80-5.40); RDW 12.7 % (11.5-15.5); WBC 13.1 k/uL (3.8-10.6)
[2021-10-19] MEDS ORDERED: NALOXONE 0.4 MG/ML 1 ML VIAL IV PRN (15:11)
--- NOTE | 2021-10-19 16:11 | XR ---
EXAMINATION TYPE: XR chest 1V DATE OF EXAM: 10/19/2021 COMPARISON: 05/16/2021 HISTORY: Preop TECHNIQUE: Single view Single view There is no heart failure nor confluent pneumonic infiltrate. Costophrenic angles are clear. There i s left axillary pacemaker. There is plate with screws fixing the proximal right humerus. IMPRESSION: No active cardiopulmonary disease. No change.
[2021-10-19] MEDS: SODIUM CHLORIDE 0.9% 1,000 ML IV SCH (17:21)
[2021-10-19 17:41] LABS: Basophils # (A) 0.1 k/uL (0-0.2); Basophils % (A) 0 %; Eosinophils # (A) 0.2 k/uL (0-0.7); Eosinophils % (A) 2 %; HCT 35.7 % (34.0-46.0); HGB 12.2 gm/dL (11.4-16.0); Lymphocytes # (A) 1.8 k/uL (1.0-4.8); Lymphocytes % (A) 14 %; MCH 30.1 pg (25.0-35.0); MCHC 34.4 g/dL (31.0-37.0); MCV 87.5 fL (80.0-100.0); Mean Platelet Volume 6.4; Monocytes # (A) 0.5 k/uL (0-1.0); Monocytes % (A) 4 %; Neutrophils # (A) 10.2 k/uL (1.3-7.7); Neutrophils % (A) 79 %; Platelet Count 327 k/uL (150-450); RBC 4.07 m/uL (3.80-5.40); RDW 12.9 % (11.5-15.5); WBC 12.9 k/uL (3.8-10.6)
[2021-10-19 17:55] LABS: Albumin 3.6 g/dL (3.5-5.0); Calcium 9.2 mg/dL (8.4-10.2); Potassium 4.5 mmol/L (3.5-5.1); Total Bilirubin 1.1 mg/dL (0.2-1.3); Total Protein 7.2 g/dL (6.3-8.2)
[2021-10-19 18:04] LABS: INR 0.9 (<1.2); Partial Thromboplastin Time 24.4 sec (22.0-30.0); Prothrombin Time 9.9 sec (9.0-12.0)
[2021-10-19] MEDS: MORPHINE SULFATE 4 MG/ML SYRINGE IV PRN (20:06)
--- NOTE | 2021-10-20 01:15 | P.CONS ---
History of Present Illness - Reason for Consult Consult date: 10/20/21 - History of Present Illness The patient is a 71-year-old female with a PMH of coronary artery disease, sick sinus syndrome status post pacemaker placement, hypertension, hyperlipidemia, who presents to the emergency room after a fall at home. The patient reports that she had been in her usual state of health when on 10/18 evening, she walked to her bathroom and after urinating, upon standing up, she felt lightheaded and fell to the ground, hitting her left side. She reports immediate severe pain at the site of the impact and that she was unable to get up. Her activated EMS, who were able to help the patient into bed. The patient however refused to go to the hospital and attempted to stay home hoping that the pain would improve. Upon waking up on the morning of 10/19, she noticed that she was still not able to walk, at which point she decided to go to the emergency room. In the emergency room, a hip x-ray revealed a subcapital impacted left femoral neck fracture along with osteopenia. At time of interview, the patient reported no pain at rest but reports pain with any movement of the left leg. She denied experiencing head trauma or trauma elsewhere at time of the fall. Reports a long-standing history of postural unsteadiness. Denied losing consciousness. She denied any additional complaints. She normally walks without assistive devices but does have a walker for as needed basis at home. She reports significant "arthritis" throughout her body with inability to stand for more lonnie n 5 minutes. She denied experiencing chest discomfort, shortness of breath, nausea, vomiting, abdominal pain, diarrhea. Denies fever, chills, cough, headaches, weakness, numbness, tingling. EKG in the emergency room revealed normal sinus rhythm at [address]/T-wave changes noted as reviewed by me. Laboratory evaluation was remarkable for leukocytosis of 12.9, sodium 129, AST 138, ALT 49. The patient denied tobacco or alcohol use. Review of systems: Pertinent positives and negatives as discussed in HPI, a complete review of systems was performed and all other systems are negative. Physical examination: General: non toxic, no distress, appears at stated age, obese Derm: no unusual rashes/lesions no unusual ecchymoses, warm, dry Head: atraumatic, normocephalic, symmetric Eyes: EOMI, no lid lag, anicteric sclera, pupils equal round reactive to light ENT: Nose and ears atraumatic, no thrush, no pharyngeal erythema Neck: No thyromegaly, no cervical lymphadenopathy, trachea midline, supple Mouth: no lip lesion, mucus membranes moist Cardiovascular: S1S2 reg, no murmur, positive posterior tibial pulse bilateral, no edema, capillary refill less than 2 seconds Lungs: CTA bilateral, no rhonchi, no rales , no accessory muscle use Abdominal: soft, nontender to palpation, no guarding, no appreciable organomegaly, normal bowel sounds Ext: no gross muscle atrophy, muscle strength 5 out of 5 bilateral upper extremities, strength 3 out of 5 of right lower extremity and 2 out of 5 of the left lower extremity due to pain, no contractures, no left hip overlying skin abnormalities noted with tenderness diffusely Neuro: CN II-XI grossly intact, light touch intact all 4 extremities, finger to nose within normal limits, Psych: Alert, oriented, appropriate affect Assessment/plan Traumatic left femoral subcapital fracture -Defer management including pain control to the primary surgery service Abnormal LFTs -The patient is not currently on a statin and denied alcohol use -Monitor for now Chronic conditions:Sick sinus syndrome, coronary artery disease, HTN, HLD -C/w home ASA, Losartan and Lopressor Preoperative evaluation -The patient is partially dependent elderly female with mild systemic disease with METS < 4 -NSQIP score (risk of any complication): 8.4% (vs 9.7% average risk) -Cardiology consulted for pacemaker management -The patient's current Na is 129 with hyponatremia a contra-indication for urgent surgical procedures. Will recommend gentle IV hydration and recommend to hold off on surgery unless Na > 130. -The patient has no additional modifiable risk factors for an urgent orthopedic procedure. We appreciate this opportunity to be involved in this patient's care. We will follow the patient with you. For any further questions, please not hesitate to contact the sound inpatient team. Past Medical History Past Medical History: Coronary Artery Disease (CAD), Chest Pain / Angina, CVA/TIA, Hyperlipidemia, Hypertension, Myocardial Infarction ([place]), Osteoarthritis (OA) Additional Past Medical History / Comment(s): TIA 3, SICK SINUS SYNDROME Last Myocardial Infarction Date:: unknown History of Any Multi-Drug Resistant Organisms: None Reported Past Surgical History: Section, Cholecystectomy, Heart Catheterization, Pacemaker Additional Past Surgical History / Comment(s): medronic pacemaker Past Anesthesia/Blood Transfusion Reactions: No Reported Reaction Type of Cardiac Device: Permanent Pacemaker Device Placement Date:: April 2021 Past Psychological History: No Psychological Hx Reported Smoking Status: Never smoker Past Alcohol Use History: None Reported Past Drug Use History: None Reported - Past Family History Father Family Medical History: Diabetes Mellitus, Myocardial Infarction ([place]) Sister(s) Additional Family Medical History / Comment(s): enlarged heart at age 50 Medications and Allergies Home Medications Medication Instructions Recorded Confirmed Type Zolpidem Tartrate [Ambien] 10 mg PO HS 08/06/19 10/19/21 History Acetaminophen [Tylenol Arthritis] 1,300 mg PO Q12H PRN 10/19/21 10/19/21 History Losartan Potassium 50 mg PO DAILY 10/19/21 10/19/21 History Metoprolol Tartrate [Lopressor] 25 mg PO DAILY 10/19/21 10/19/21 History Aspirin 81 mg PO DAILY 10/20/21 10/20/21 History Allergies Allergy/AdvReac Type Severity Reaction Status Date / Time nitroglycerin Allergy Nausea & Verified 05/16/21 06:25 Vomiting & Diarrhea Physical Exam Vitals: Vital Signs Temp Pulse Pulse Resp BP BP Pulse Ox 10/19/21 19:05 98.5 F 81 15 126/78 97 10/19/21 17:52 98.2 F 96 18 154/80 97 10/19/21 17:01 77 18 162/64 98 10/19/21 13:05 98.2 F 103 H 18 184/90 98 Intake and Output 10/19/21 10/19/21 10/20/21 14:59 22:59 06:59 Output Total 450 Balance -450 Output: Urine 450 Other: Voiding Method Indwelling Catheter Weight 104.326 kg 104.326 kg Results CBC & Chem 7: 10/19/21 17:27 10/19/21 17:27 Labs: Abnormal Lab Results - Last 24 Hours (Table) 10/19/21 10/19/21 10/19/21 Range/Units 14:47 17:27 17:27 WBC 13.1 H 12.9 H (3.8-10.6) k/uL Neutrophils # 10.9 H 10.2 H (1.3-7.7) k/uL Sodium 129 L (137-145) mmol/L Glucose 107 H (74-99) mg/dL AST 138 H (14-36) U/L ALT 49 H (4-34) U/L
[2021-10-20] MEDS: SODIUM CHLORIDE 0.9% 1,000 ML IV SCH ×4 (03:31→22:24)
[2021-10-20] MEDS: METOPROLOL TARTRATE 25 MG TAB PO SCH (07:51)
[2021-10-20] MEDS: MORPHINE SULFATE 4 MG/ML SYRINGE IV PRN ×3 (07:56→15:03)
[2021-10-20] MEDS: ASPIRIN 81 MG PO SCH (08:00)
[2021-10-20] MEDS: LOSARTAN 50 MG TAB PO SCH (08:00)
--- NOTE | 2021-10-20 09:41 | P.HPOR ---
History of Present Illness H&P Date: 10/20/21 Chief Complaint: Left femoral neck fracture Patient is a 71-year-old female who presented to [facility] yesterday afternoon with regards to pain to the left lower extremity. Apparently the patient fell on 10/18/2021 when going to the bathroom late at night. Patient became lightheaded and tripped and fell directly on the left side. Patient's pain progressively worst into the next day, she was unable to tolerate weightbearing on that extremity, she was brought to [facility] for further evaluation. After arrival to the hospital, imaging lab tests were done. Images demonstrated an impacted subcapital left femur fracture. Was contacted by the emergency room staff, was able to review the images. I discussed the case with attending Dr. Ng. Patient was admitted under orthopedic care with plan for likely surgical intervention. Internal medicine was consulted for medical management. Patient was evaluated this morning at bedside, she is resting comfortably, her is present. She states most of the discomfort is in the left lower extremity, this is when she moves, she is rather comfortable if she's not moving. She denies any previous orthopedic surgery to the left lower extremity. She denies any pain of the right lower extremity, bilateral upper extremities, new onset cervical, thoracic or lumbar pain. She denies any numbness or tingling in the bilateral upper or lower extremities. She denies any changes or loss of bowel or bladder function currently. Patient lives at home with her , she does not drive anymore. She does have a walker that she occasionally will use. She does have a history of pacemaker placement, cardiology has evaluated patient and cleared her for surgery. Currently patient denies any headaches, lightheadedness, chest pain, shortness of breath, abdominal discomfort, nausea or vomiting. Review of Systems Constitutional: Reports as per HPI Past Medical History Past Medical History: Coronary Artery Disease (CAD), Chest Pain / Angina, CVA/TIA, Hyperlipidemia, Hypertension, Myocardial Infarction ([place]), Osteoarthritis (OA) Additional Past Medical History / Comment(s): TIA 3, SICK SINUS SYNDROME Last Myocardial Infarction Date:: unknown History of Any Multi-Drug Resistant Organisms: None Reported Past Surgical History: Section, Cholecystectomy, Heart Catheterization, Pacemaker Additional Past Surgical History / Comment(s): medronic pacemaker Past Anesthesia/Blood Transfusion Reactions: No Reported Reaction Type of Cardiac Device: Permanent Pacemaker Device Placement Date:: April 2021 Past Psychological History: No Psychological Hx Reported Smoking Status: Never smoker Past Alcohol Use History: None Reported Past Drug Use History: None Reported - Past Family History Father Family Medical History: Diabetes Mellitus, Myocardial Infarction ([place]) Sister(s) Additional Family Medical History / Comment(s): enlarged heart at age 50 Medications and Allergies Home Medications Medication Instructions Recorded Confirmed Type Zolpidem Tartrate [Ambien] 10 mg PO HS 08/06/19 10/19/21 History Acetaminophen [Tylenol Arthritis] 1,300 mg PO Q12H PRN 10/19/21 10/19/21 History Losartan Potassium 50 mg PO DAILY 10/19/21 10/19/21 History Metoprolol Tartrate [Lopressor] 25 mg PO DAILY 10/19/21 10/19/21 History Aspirin 81 mg PO DAILY 10/20/21 10/20/21 History Allergies Allergy/AdvReac Type Severity Reaction Status Date / Time nitroglycerin Allergy Nausea & Verified 05/16/21 06:25 Vomiting & Diarrhea Physical Examination Left lower extremity: No obvious open lesions or sores are visualized throughout the extremity, there is no cervical areas of erythema or soft tissue swelling She has obvious tenderness with palpation to the left lower extremity, this being more proximally near the hip joint. She is nontender with palpation surrounding the knee, lower leg, foot or ankle Logroll maneuver is extremity reproduces severe pain, she is unable to straight leg raise Range of motion of the hip and knee were not assessed, plantar flexion, dorsiflexion, EHL, FHL are intact. No apparent focal neurological deficits Sensation to light touch is intact throughout the extremity Calf is soft, no tenderness with palpation Dorsalis pedis pulses 2+ General orthopedic exam: Well-healed incision on the anterior aspect of the right shoulder, there are no open lesions or sores visualized throughout the bilateral upper extremities, this to include areas of erythema or soft tissue swelling. Full range of motion is noted in the bilateral upper extremities, no apparent focal neurological deficits. She demonstrates no point tenderness throughout the bilateral upper extremities She demonstrates tenderness with palpation to the cervical, thoracic or lumbar midline or paraspinal region No lesions or sores are visualized throughout the right lower extremity, no apparent areas of erythema or soft tissue swelling Logroll maneuver reproduces no pain of the right lower extremity, there is no areas of point tenderness. Range of motion is intact in all major muscle groups of the right lower extremity, no apparent focal neurological deficits. Her sensory exam to light touch is intact at the extremity. Her calf is soft, no tenderness with palpation. Dorsalis pedis pulses 2+ Results - Labs Labs: Abnormal Lab Results - Last 24 Hours (Table) 10/19/21 10/19/21 10/19/21 Range/Units 14:47 17:27 17:27 WBC 13.1 H 12.9 H (3.8-10.6) k/uL Neutrophils # 10.9 H 10.2 H (1.3-7.7) k/uL Sodium 129 L (137-145) mmol/L Glucose 107 H (74-99) mg/dL AST 138 H (14-36) U/L ALT 49 H (4-34) U/L H & H 10/19/21 10/19/21 Range/Units 14:47 17:27 Hgb 12.0 12.2 (11.4-16.0) gm/dL Hct 35.9 35.7 (34.0-46.0) % Coagulation 10/19/21 Range/Units 17:27 INR 0.9 (<1.2) Result Diagrams: 10/19/21 17:27 10/19/21 17:27 - Diagnostic results Hip x-ray: report reviewed, image reviewed (Report and images were reviewed of the left hip. Images demonstrate impacted left subcapital femur fracture. No other acute osseous abnormalities appreciated) Assessment and Plan Assessment: Displaced, impacted left subcapital femoral neck fracture Status post fall from standing Morbidly obese Other medical comorbidities Plan: I was able to discuss the case, this to include both physical exam findings and imaging studies with my attending Dr. Ng. We are recommending a left hip hemiarthroplasty for surgical intervention, plan is to proceed with surgery on 10/20/2021. Risk and benefits of the procedure were discussed with the patient, this to include but not exclude blood clots, infection, development blood clot, neurovascular injury, pain and stiffness, inadequate healing of bone, need for further surgery. Patient and family are in good understanding and would like to proceed. Patient's sodium level at admission was 129, redraw on 10/20/2021 was done, awaiting results. It was noted internal medicine's note they would like the sodium level at 130 or higher for surgical clearance. Patient was seen by cardiology and clearance was obtained Pain control, continue with current medication, we'll readjust medications after surgery GI and DVT prophylaxis, discussed use of blood thinner after surgery for 30 days. We'll likely utilize Eliquis 2.5 mg twice a day Nonweightbearing left lower extremity at this time, plan for weight-bear as tolerated with walker after surgery PT/OT evaluation Encourage incentive spirometer Discharge planning: Discussed discharge options with patient, she is adamant going home. We discussed the possibility of subacute rehab if she does not progress. This will be assessed postoperatively and discussion with case management/social work Time with Patient: Less than 30
[2021-10-20 10:01] LABS: ALT 77 U/L (4-34); AST 95 U/L (14-36); African American GFR (CKD) 73 (>60 ml/min/1.73 sqM); Albumin 3.5 g/dL (3.5-5.0); Alkaline Phosphatase 133 U/L (38-126); Anion Gap 7 mmol/L; Blood Urea Nitrogen 8 mg/dL (7-17); Calcium 9.2 mg/dL (8.4-10.2); Carbon Dioxide 22 mmol/L (22-30); Chloride 100 mmol/L (98-107); Globulin 3.6 g/dL; Glucose 101 mg/dL (74-99); Non-African American GFR(CKD) 63 (>60 ml/min/1.73 sqM); Potassium 4.5 mmol/L (3.5-5.1); Sodium 129 mmol/L (137-145); Total Bilirubin 0.7 mg/dL (0.2-1.3); Total Protein 7.1 g/dL (6.3-8.2)
--- NOTE | 2021-10-20 10:40 | P.CRDCN ---
History of Present Illness History of present illness: HISTORY OF PRESENTING ILLNESS This is a pleasant 71-year-old and female past medical history significant for hypertension, dyslipidemia and sick sinus syndrome status post permanent pacemak er implantation. She follows in the office with Dr. Noonan. We have been asked to see in consultation for preoperative evaluation. She woke up in the middle the night to use the restroom. She thinks she stood too quickly and she became acutely lightheaded and fell unfortunately causing the left femur fracture. She is scheduled to undergo surgical intervention scheduled for this morning. She is seen and examined sitting up in bed in no acute distress. She has no symptoms of chest pain or shortness of breath. EKG revealed sinus rhythm with no acute ST or T-wave abnormalities noted. Chest x-ray is negative for acute cardiopulmonary process. Laboratory data reviewed, WBC 12.9, hemoglobin 12.2, platelets 327, sodium 129, potassium 4.5, creatinine 0.93. Current daily cardiac medications include aspirin 81 mg daily, Lopressor 25 mg daily and losartan 50 mg daily. Most recent stress test performed in the office the Lexiscan stress test in 2017 that was negative for reversible ischemia. Most recent echocardiogram obtained January 2020 revealed preserved LV systolic function with ejection fraction 55%. REVIEW OF SYSTEMS At the time of my exam: CONSTITUTIONAL: Denies fever or chills. CARDIOVASCULAR: Denies chest pain, shortness of breath, orthopnea, PND or palpitations. RESPIRATORY: Denies cough. GASTROINTESTINAL: Denies abdominal pain, diarrhea, constipation, nausea or vomiting. MUSCULOSKELETAL: Complains of left leg and hip pain. NEUROLOGIC: Denies numbness, tingling, headache or weakness. ENDOCRINE: Denies fatigue, weight change, polydipsia or polyurina. GENITOURINARY: Denies burning, hematuria or urgency with micturation. HEMATOLOGIC: Denies history of anemia or bleeding. PHYSICAL EXAMINATION Blood pressure 174/73 heart rate 83 afebrile and maintaining oxygen saturation on room air. CONSTITUTIONAL: No apparent distress. HEENT: Head is normocephalic. Pupils are equal, round. Sclerae anicteric. Mucous membranes of the mouth are moist. No JVD. No carotid bruit. CHEST EXAMINATION: Lungs are clear to auscultation. No chest wall tenderness is noted on palpation or with deep breathing. HEART EXAMINATION: Regular rate and rhythm. S1, S2 heard. No murmurs, gallops or rub. ABDOMEN: Soft, nontender. EXTREMITIES: 2+ peripheral pulses, no lower extremity edema and no calf tenderness. NEUROLOGIC EXAMINATION: Patient is awake, alert and oriented x3. ASSESSMENT Fall likely related to orthostatic changes Femur fracture Hypertension Dyslipidemia Sick sinus syndrome status post permanent pacemaker implantation PLAN From a cardiac perspective the patient is stable to undergo surgical intervention. She has average risk given her comorbid conditions. Recommend cautious fluid administration and optimal blood pressure control intraoperatively. DVT prophylaxis per orthopedics. We will continue to follow and make recommendations accordingly. Thank you kindly for this consultation. Nurse Practitioner note has been reviewed, I agree with a documented findings and plan of care. Patient was seen and examined. Past Medical History Past Medical History: Coronary Artery Disease (CAD), Chest Pain / Angina, CVA/TI A, Hyperlipidemia, Hypertension, Myocardial Infarction ([place]), Osteoarthritis (OA) Additional Past Medical History / Comment(s): TIA 3, SICK SINUS SYNDROME Last Myocardial Infarction Date:: unknown History of Any Multi-Drug Resistant Organisms: None Reported Past Surgical History: Section, Cholecystectomy, Heart Catheterization, Pacemaker Additional Past Surgical History / Comment(s): medronic pacemaker Past Anesthesia/Blood Transfusion Reactions: No Reported Reaction Type of Cardiac Device: Permanent Pacemaker Device Placement Date:: April 2021 Past Psychological History: No Psychological Hx Reported Smoking Status: Never smoker Past Alcohol Use History: None Reported Past Drug Use History: None Reported - Past Family History Father Family Medical History: Diabetes Mellitus, Myocardial Infarction ([place]) Sister(s) Additional Family Medical History / Comment(s): enlarged heart at age 50 Medications and Allergies Home Medications Medication Instructions Recorded Confirmed Type Zolpidem Tartrate [Ambien] 10 mg PO HS 08/06/19 10/19/21 History Acetaminophen [Tylenol Arthritis] 1,300 mg PO Q12H PRN 10/19/21 10/19/21 History Losartan Potassium 50 mg PO DAILY 10/19/21 10/19/21 History Metoprolol Tartrate [Lopressor] 25 mg PO DAILY 10/19/21 10/19/21 History Aspirin 81 mg PO DAILY 10/20/21 10/20/21 History Allergies Allergy/AdvReac Type Severity Reaction Status Date / Time nitroglycerin Allergy Nausea & Verified 05/16/21 06:25 Vomiting & Diarrhea Physical Exam Vitals: Vital Signs Temp Pulse Pulse Resp BP BP Pulse Ox 10/20/21 01:27 98.1 F 78 14 156/86 96 10/19/21 19:05 98.5 F 81 15 126/78 97 10/19/21 17:52 98.2 F 96 18 154/80 97 10/19/21 17:01 77 18 162/64 98 10/19/21 13:05 98.2 F 103 H 18 184/90 98 Intake and Output 10/19/21 10/20/21 10/20/21 22:59 06:59 14:59 Output Total 450 350 Balance -450 -350 Output: Urine 450 350 Other: Voiding Method Indwelling Catheter Indwelling Catheter Weight 104.326 kg Results 10/19/21 17:27 10/20/21 08:56 Cardiac Enzymes 10/19/21 Range/Units 17:27 AST 138 H (14-36) U/L Coagulation 10/19/21 Range/Units 17:27 PT 9.9 (9.0-12.0) sec APTT 24.4 (22.0-30.0) sec CBC 10/19/21 10/19/21 Range/Units 14:47 17:27 WBC 13.1 H 12.9 H (3.8-10.6) k/uL RBC 4.02 4.07 (3.80-5.40) m/uL Hgb 12.0 12.2 (11.4-16.0) gm/dL Hct 35.9 35.7 (34.0-46.0) % Plt Count 330 327 (150-450) k/uL Comprehensive Metabolic Panel 10/19/21 Range/Units 17:27 Sodium 129 L (137-145) mmol/L Potassium 4.5 (3.5-5.1) mmol/L Chloride 99 (98-107) mmol/L Carbon Dioxide 24 (22-30) mmol/L BUN 9 (7-17) mg/dL Creatinine 0.90 (0.52-1.04) mg/dL Glucose 107 H (74-99) mg/dL Calcium 9.2 (8.4-10.2) mg/dL AST 138 H (14-36) U/L ALT 49 H (4-34) U/L Alkaline Phosphatase 123 (38-126) U/L Total Protein 7.2 (6.3-8.2) g/dL Albumin 3.6 (3.5-5.0) g/dL Current Medications Generic Name Dose Route Start Last Admin Trade Name Freq PRN Reason Stop Dose Admin Aspirin 81 mg 10/20/21 09:00 10/20/21 08:00 Aspirin 81 Mg PO Not Given DAILY CATHY Sodium Chloride 1,000 mls @ 130 mls/hr 10/19/21 15:15 10/20/21 08:00 Saline 0.9% IV Not Given .[id number] CATHY Losartan Potassium 50 mg 10/20/21 09:00 10/20/21 08:00 Losartan 50 Mg Tab PO Not Given DAILY CATHY Metoprolol Tartrate 25 mg 10/20/21 09:00 10/20/21 07:51 Metoprolol Tartrate 25 Mg Tab PO 25 mg DAILY CATHY Administration Morphine Sulfate 4 mg 10/19/21 15:11 10/20/21 07:56 Morphine Sulfate 4 Mg/Ml Syringe IV 4 mg Q4HR PRN Administration Severe Pain Naloxone HCl 0.2 mg 10/19/21 15:11 Naloxone 0.4 Mg/Ml 1 Ml Vial IV Q2M PRN Opioid Reversal Zolpidem Tartrate 10 mg 10/20/21 21:00 Zolpidem 10 Mg Tab PO HS CATHY Intake and Output 10/19/21 10/20/21 10/20/21 22:59 06:59 14:59 Output Total 450 350 Balance -450 -350 Output: Urine 450 350 Other: Voiding Method Indwelling Catheter Indwelling Catheter Weight 104.326 kg 10/19/21 17:27 10/19/21 17:27
[2021-10-20] MEDS: ONDANSETRON 4 MG/2 ML VIAL IVP PRN ×2 (10:41→18:25)
--- NOTE | 2021-10-20 10:45 | P.PN ---
Progress Note - Text Progress Note Date: 10/20/21 Redraw on her sodium level was 129, surgery will be postponed. Tentatively planning for surgery for 10/21/2021. Patient will receive heparin 5000 units every 12 today, we'll discontinue admitted at first plan surgery tomorrow. Family was updated on current plan.
--- NOTE | 2021-10-20 12:23 | P.PN ---
<León Chew - Last Filed: 10/20/21 11:29> Subjective Progress Note Date: 10/20/21 Hospital Course: The patient is a 71-year-old female with a past medical history of coronary ar dominguez disease, sick sinus syndrome status post pacemaker placement, hypertension, hyperlipidemia, who presents to the emergency room after a fall at home. The patient reports that she had been in her usual state of health when on 10/18/21, she walked to her bathroom and after urinating, upon standing up, she felt lightheaded and fell to the ground, hitting her left side. She reports immediate severe pain at the site of the impact and that she was unable to get up. Her activated EMS, who were able to help the patient into bed. The patient however refused to go to the hospital and attempted to stay home hoping that the pain would improve. Upon waking up on the morning of 10/19/21, pt states she noticed that she was still not able to walk, at which point she decided to go to the emergency room. In the emergency room, a hip x-ray revealed a subcapital impacted left femoral neck fracture along with osteopenia. Patient was admitted under Gen. surgery team with Dr. Stevens. We have been consulted to provide preoperative clearance as well as continued medical management throughout hospitalization. Cardiology has been consulted for cardiac preoperative evaluation and clearance. Physical examination: Patient seen and fully evaluated at the bedside this morning. She continues to have mild hyponatremia with sodium of 129. IV fluids infusing at this time with no signs of fluid overload. Patient reports mild pain to left hip currently controlled with current pain regimen. She denies currently. Any headache, lightheadedness, dizziness, chest pain, palpitations, shortness of breath, nausea, or experiencing any numbness/tingling/weakness of her extremities. General: non toxic, no distress, appears at stated age, obese Derm: no unusual rashes/lesions no unusual ecchymoses, warm, dry Head: atraumatic, normocephalic, symmetric Eyes: EOMI, no lid lag, anicteric sclera, pupils equal round reactive to light ENT: Nose and ears atraumatic, no thrush, no pharyngeal erythema Neck: No thyromegaly, no cervical lymphadenopathy, trachea midline, supple Mouth: no lip lesion, mucus membranes moist Cardiovascular: S1S2 reg, no murmur, positive posterior tibial pulse bilateral, no edema, capillary refill less than 2 seconds Lungs: CTA bilateral, no rhonchi, no rales , no accessory muscle use Abdominal: soft, nontender to palpation, no guarding, no appreciable organomegaly, normal bowel sounds Ext: no gross muscle atrophy, no contractures, tenderness left lateral hip and thigh, no bruising or obvious deformity noted. Movement and sensation intact. Neuro: CN II-XI grossly intact, light touch intact all 4 extremities, finger to nose within normal limits, Psych: Alert, oriented, appropriate affect Assessment and plan of care: Hyponatremia of unclear etiology, possibly resulting from decreased oral intake/mild dehydration -Continue gentle hydration with IV fluids -Urine osmolality, urine osmolality, urine sodium, and TSH to be obtained. -Continue close monitoring with repeat a.m. labs. Fall secondary to reports of Dizziness/lightheadedness Traumatic left femoral subcapital fracture -Management per primary admitting orthopedic surgery team. -Pain management, DVT prophylaxis, weightbearing, PT/OT as directed by orthopedic team. -Fall precautions Abnormal LFTs -The patient is not currently on a statin and denied alcohol use -Monitor for now Chronic conditions:Sick sinus syndrome, coronary artery disease, HTN, HLD -Continue home ASA, Losartan and Lopressor Preoperative evaluation -The patient is partially dependent elderly female with mild systemic disease wi th METS < 4 -NSQIP score (risk of any complication): 8.4% (vs 9.7% average risk) -Cardiology consulted for pacemaker management and cardiac clearance -The patient's current Na is 129 with hyponatremia a contra-indication for urgent surgical procedures. Will recommend gentle IV hydration and recommend to hold off on surgery unless Na > 130. -The patient has no additional modifiable risk factors for an urgent orthopedic procedure. Thank you for allowing us to participate in the care of this pleasant patient. Do not hesitate to contact us with questions. Someone can be reached from the [facility] hospitalist group all hours of the day at [phone] or via perfect serve. Objective - Vital Signs Vital signs: Vital Signs Temp 98.1 F 10/20/21 01:27 Pulse 78 10/20/21 01:27 Resp 14 10/20/21 01:27 BP 156/86 10/20/21 01:27 Pulse Ox 96 10/20/21 01:27 Intake & Output 10/19/21 10/20/21 10/20/21 18:59 06:59 18:59 Output Total 450 350 Balance -450 -350 Weight 104.326 kg Output: Urine 450 350 Other: Voiding Method Indwelling Catheter - Labs CBC & Chem 7: 10/19/21 17:27 10/20/21 08:56 Labs: Abnormal Lab Results - Last 24 Hours (Table) 10/19/21 10/19/21 10/19/21 Range/Units 14:47 17:27 17:27 WBC 13.1 H 12.9 H (3.8-10.6) k/uL Neutrophils # 10.9 H 10.2 H (1.3-7.7) k/uL Sodium 129 L (137-145) mmol/L Glucose 107 H (74-99) mg/dL AST 138 H (14-36) U/L ALT 49 H (4-34) U/L <Gerry Sauceda - Last Filed: 10/20/21 18:01> Subjective I reviewed the documentation as provided by the DRAEK above, who is the original author of this note. I agree with the documented assessment and plan, with the following changes: None Objective - Vital Signs Vital signs: Vital Signs Temp 98.6 F 10/20/21 14:00 Pulse 71 10/20/21 14:00 Resp 17 10/20/21 14:00 BP 163/78 10/20/21 14:00 Pulse Ox 94 L 10/20/21 14:00 Intake & Output 10/19/21 10/20/21 10/20/21 18:59 06:59 18:59 Output Total 450 350 550 Balance -450 -350 -550 Weight 104.326 kg Output: Urine 450 350 550 Other: Voiding Method Indwelling Catheter Indwelling Catheter - Labs CBC & Chem 7: 10/19/21 17:27 10/20/21 08:56 Labs: Abnormal Lab Results - Last 24 Hours (Table) 10/20/21 10/20/21 Range/Units 08:56 08:56 Sodium 129 L (137-145) mmol/L Glucose 101 H (74-99) mg/dL Osmolality 271 L (280-301) mosm/kg AST 95 H (14-36) U/L ALT 77 H (4-34) U/L Alkaline Phosphatase 133 H (38-126) U/L
[2021-10-20] MEDS: HEPARIN SODIUM,PORCINE/PF 5,000 UNIT/0.5 ML SYRINGE SQ SCH ×2 (12:58→20:12)
[2021-10-20] MEDS: ZOLPIDEM 10 MG TAB PO SCH (20:12)
[2021-10-21] MEDS: MORPHINE SULFATE 4 MG/ML SYRINGE IV PRN ×2 (04:58→10:17)
[2021-10-21 08:12] LABS: Basophils # (A) 0.1 k/uL (0-0.2); Basophils % (A) 0 %; Eosinophils # (A) 0.1 k/uL (0-0.7); Eosinophils % (A) 1 %; HCT 36.5 % (34.0-46.0); HGB 12.3 gm/dL (11.4-16.0); Lymphocytes # (A) 2.5 k/uL (1.0-4.8); Lymphocytes % (A) 16 %; MCH 29.6 pg (25.0-35.0); MCHC 33.7 g/dL (31.0-37.0); Mean Platelet Volume 6.6; Monocytes # (A) 0.9 k/uL (0-1.0); Monocytes % (A) 6 %; Neutrophils # (A) 11.6 k/uL (1.3-7.7); Neutrophils % (A) 76 %; Platelet Count 377 k/uL (150-450); RBC 4.15 m/uL (3.80-5.40); RDW 12.8 % (11.5-15.5); WBC 15.3 k/uL (3.8-10.6)
[2021-10-21 08:36] LABS: African American GFR (CKD) 65 (>60 ml/min/1.73 sqM); Anion Gap 6 mmol/L; Blood Urea Nitrogen 7 mg/dL (7-17); Carbon Dioxide 26 mmol/L (22-30); Chloride 96 mmol/L (98-107); Glucose 123 mg/dL (74-99); Non-African American GFR(CKD) 56 (>60 ml/min/1.73 sqM); Potassium 4.5 mmol/L (3.5-5.1); Sodium 128 mmol/L (137-145)
[2021-10-21] MEDS: SODIUM CHLORIDE 0.9% 1,000 ML IV SCH ×2 (08:47→21:24)
[2021-10-21] MEDS: LOSARTAN 50 MG TAB PO SCH (08:47)
[2021-10-21] MEDS: METOPROLOL TARTRATE 25 MG TAB PO SCH (08:48)
[2021-10-21] MEDS: ONDANSETRON 4 MG/2 ML VIAL IVP PRN (08:48)
[2021-10-21] MEDS: ASPIRIN 81 MG PO SCH (08:48)
--- NOTE | 2021-10-21 09:24 | P.PN ---
Subjective Progress Note Date: 10/21/21 HISTORY OF PRESENT ILLNESS: This is a pleasant 71-year-old and female past medical history significant for hypertension, dyslipidemia and sick sinus syndrome status post permanent p acemaker implantation. She follows in the office with Dr. Noonan. We have been asked to see in consultation for preoperative evaluation. She woke up in the middle the night to use the restroom. She thinks she stood too quickly and she became acutely lightheaded and fell unfortunately causing the left femur fracture. She is scheduled to undergo surgical intervention scheduled for this morning. She is seen and examined sitting up in bed in no acute distress. She has no symptoms of chest pain or shortness of breath. EKG revealed sinus rhythm with no acute ST or T-wave abnormalities noted. Chest x-ray is negative for acute cardiopulmonary process. Laboratory data reviewed, WBC 12.9, hemoglobin 12.2, platelets 327, sodium 129, potassium 4.5, creatinine 0.93. Current daily cardiac medications include aspirin 81 mg daily, Lopressor 25 mg daily and losartan 50 mg daily. Most recent stress test performed in the office the Lexiscan stress test in 2017 that was negative for reversible ischemia. Most recent echocardiogram obtained January 2020 revealed preserved LV systolic function with ejection fraction 55%. 10/21/2021 Patient examined this morning at the bedside. She reports pain to her left hip. She also reports nausea and feels like she is going to throw up. She reports abdominal discomfort. She states she thinks it may be related to her anxiety and nerves about her upcoming surgery. She denies chest pain or pressure. Denies shortness of breath. Mildly tachycardic this morning but sounds regular, likely related to anxiety and/or pain. Sodium 128. PHYSICAL EXAM: VITAL SIGNS: Reviewed. GENERAL: Well-developed in no acute distress. NECK: Supple. No JVD or thyromegaly LUNGS: Respirations even and unlabored. Lungs essentially clear to auscultation bilaterally. HEART: Regular rate and rhythm. S1 and S2 heard. EXTREMITIES: Pain to left hip noted. No clubbing or cyanosis. Peripheral pulses intact. No lower extremity edema ASSESSMENT: Fall likely related to orthostatic changes Sinus tachycardia Femur fracture Hyponatremia Hypertension Dyslipidemia Sick sinus syndrome status post permanent pacemaker implantation PLAN: Obtain EKG. Suspect sinus tachycardia related to anxiety and/or pain Monitor blood pressure Patient scheduled for surgery today with orthopedic team There are no absolute contraindications to undergo surgery from a cardiac standpoint Further recommendations pending patient course Nurse practitioner note has been reviewed by physician. Signing provider agrees with the documented findings, assessment, and plan of care. Objective - Vital Signs Vital signs: Vital Signs Temp 99.5 F 10/21/21 07:57 Pulse 110 H 10/21/21 07:57 Resp 22 10/21/21 07:57 BP 175/84 10/21/21 07:57 Pulse Ox 94 L 10/21/21 07:57 Intake & Output 10/20/21 10/21/21 10/21/21 18:59 06:59 18:59 Output Total 550 1250 Balance -550 -1250 Output: Urine 550 1250 Other: Voiding Method Indwelling Catheter Indwelling Catheter - Labs CBC & Chem 7: 10/21/21 07:38 10/21/21 07:38 Labs: Abnormal Lab Results - Last 24 Hours (Table) 10/20/21 10/20/21 10/21/21 Range/Units 08:56 08:56 07:38 WBC 15.3 H (3.8-10.6) k/uL Neutrophils # 11.6 H (1.3-7.7) k/uL Sodium 129 L (137-145) mmol/L Chloride (98-107) mmol/L Glucose 101 H (74-99) mg/dL Osmolality 271 L (280-301) mosm/kg AST 95 H (14-36) U/L ALT 77 H (4-34) U/L Alkaline Phosphatase 133 H (38-126) U/L 10/21/21 Range/Units 07:38 WBC (3.8-10.6) k/uL Neutrophils # (1.3-7.7) k/uL Sodium 128 L (137-145) mmol/L Chloride 96 L (98-107) mmol/L Glucose 123 H (74-99) mg/dL Osmolality (280-301) mosm/kg AST (14-36) U/L ALT (4-34) U/L Alkaline Phosphatase (38-126) U/L
--- NOTE | 2021-10-21 10:37 | P.PN ---
<León Chew - Last Filed: 10/21/21 10:23> Subjective Progress Note Date: 10/21/21 Hospital Course: The patient is a 71-year-old female with a past medical history of coronary ar dominguez disease, sick sinus syndrome status post pacemaker placement, hypertension, hyperlipidemia, who presents to the emergency room after a fall at home. The patient reports that she had been in her usual state of health when on 10/18/21, she walked to her bathroom and after urinating, upon standing up, she felt lightheaded and fell to the ground, hitting her left side. She reports immediate severe pain at the site of the impact and that she was unable to get up. Her activated EMS, who were able to help the patient into bed. The patient however refused to go to the hospital and attempted to stay home hoping that the pain would improve. Upon waking up on the morning of 10/19/21, pt states she noticed that she was still not able to walk, at which point she decided to go to the emergency room. In the emergency room, a hip x-ray revealed a subcapital impacted left femoral neck fracture along with osteopenia. Patient was admitted under Gen. surgery team with Dr. Stevens. We have been consulted to provide preoperative clearance as well as continued medical management throughout hospitalization. Cardiology has been consulted for cardiac preoperative evaluation and clearance. Physical examination: Patient seen and fully evaluated at the bedside this morning. She continues to have mild hyponatremia with sodium of 128. Hyponatremia is a mild contraindication for urgent surgical procedures, however sodium remains stable after IV hydration for 24 hours. Risks of postponing surgery outweigh the benefits of waiting for patients sodium to reach recommended number of 130. Pt is medically stable and recommend preceding with surgery at this time. Upon examination, patient reported mild nausea secondary to pain medications causing an upset stomach. Patient otherwise denies any complaints stating that the pain in her left hip is currently controlled with current pain management regimen she denies having any headache, lightheadedness, dizziness, chest pain, palpitations, shortness of breath, or experiencing any numbness/tin gling/weakness in her extremities. Patient was hypertensive with systolic pressure of 170 this morning prior to administration of daily losartan and metoprolol, will need reassessed after medication administration. General: non toxic, no distress, appears at stated age, obese Derm: no unusual rashes/lesions no unusual ecchymoses, warm, dry Head: atraumatic, normocephalic, symmetric Eyes: EOMI, no lid lag, anicteric sclera, pupils equal round reactive to light ENT: Nose and ears atraumatic, no thrush, no pharyngeal erythema Neck: No thyromegaly, no cervical lymphadenopathy, trachea midline, supple Mouth: no lip lesion, mucus membranes moist Cardiovascular: S1S2 reg, no murmur, positive posterior tibial pulse bilateral, no edema, capillary refill less than 2 seconds Lungs: CTA bilateral, no rhonchi, no rales , no accessory muscle use Abdominal: soft, nontender to palpation, no guarding, no appreciable organomegaly, normal bowel sounds Ext: no gross muscle atrophy, no contractures, tenderness left lateral hip and thigh, no bruising or obvious deformity noted. Movement and sensation intact. Neuro: CN II-XI grossly intact, light touch intact all 4 extremities, finger to nose within normal limits, Psych: Alert, oriented, appropriate affect Assessment and plan of care: Hyponatremia of unclear etiology, likely chronic and is stable with gentle hydration -Continue gentle hydration with IV fluids -Urine osmolality, urine osmolality, urine sodium, and TSH to be obtained. -Continue close monitoring with repeat a.m. labs. Fall secondary to reports of Dizziness/lightheadedness Traumatic left femoral subcapital fracture -Management per primary admitting orthopedic surgery team. -Pain management, DVT prophylaxis, weightbearing, PT/OT as directed by orthopedic team. -Fall precautions Abnormal LFTs, improving -The patient is not currently on a statin and denied alcohol use -Monitor for now Chronic conditions: Sick sinus syndrome, coronary artery disease, HTN, HLD -Continue home ASA, Losartan and Lopressor Preoperative evaluation -The patient is partially dependent elderly female with mild systemic disease with METS < 4 -NSQIP score (risk of any complication): 8.4% (vs 9.7% average risk) -Cardiology consulted for pacemaker management and report no absolute contraindications for patient to undergo surgery from cardiac standpoint. -The patient's current Na is 128. Hyponatremia is a mild contraindication for urgent surgical procedures, however sodium remains stable after IV hydration for 24 hours. Risks of postponing surgery outweigh the benefits of waiting for patients sodium to reach recommended number of 130. Pt is medically stable and recommend preceding with surgery at this time. -The patient has no additional modifiable risk factors for an urgent orthopedic procedure. Thank you for allowing us to participate in the care of this pleasant patient. Do not hesitate to contact us with questions. Someone can be reached from the [facility] hospitalist group all hours of the day at [phone] or via perfect serve. Objective - Vital Signs Vital signs: Vital Signs Temp 99.5 F 10/21/21 07:57 Pulse 110 H 10/21/21 07:57 Resp 22 10/21/21 07:57 BP 175/84 10/21/21 07:57 Pulse Ox 94 L 10/21/21 07:57 Intake & Output 10/20/21 10/21/21 10/21/21 18:59 06:59 18:59 Output Total 550 1250 Balance -550 -1250 Output: Urine 550 1250 Other: Voiding Method Indwelling Catheter Indwelling Catheter - Labs CBC & Chem 7: 10/21/21 07:38 10/21/21 07:38 Labs: Abnormal Lab Results - Last 24 Hours (Table) 10/20/21 10/21/21 10/21/21 Range/Units 08:56 07:38 07:38 WBC 15.3 H (3.8-10.6) k/uL Neutrophils # 11.6 H (1.3-7.7) k/uL Sodium 128 L (137-145) mmol/L Chloride 96 L (98-107) mmol/L Glucose 123 H (74-99) mg/dL Osmolality 271 L (280-301) mosm/kg <Gerry Sauceda - Last Filed: 10/21/21 13:58> Subjective I reviewed the documentation as provided by the DRAKE above, who is the original author of this note. I agree with the documented assessment and plan, with the following changes: None Objective - Vital Signs Vital signs: Vital Signs Temp 99.5 F 10/21/21 07:57 Pulse 110 H 10/21/21 08:45 Resp 22 10/21/21 07:57 BP 175/84 10/21/21 07:57 Pulse Ox 94 L 10/21/21 07:57 Intake & Output 10/20/21 10/21/21 10/21/21 18:59 06:59 18:59 Output Total 550 1250 Balance -550 -1250 Output: Urine 550 1250 Other: Voiding Method Indwelling Catheter Indwelling Catheter Indwelling Catheter - Labs CBC & Chem 7: 10/21/21 07:38 10/21/21 07:38 Labs: Abnormal Lab Results - Last 24 Hours (Table) 10/21/21 10/21/21 Range/Units 07:38 07:38 WBC 15.3 H (3.8-10.6) k/uL Neutrophils # 11.6 H (1.3-7.7) k/uL Sodium 128 L (137-145) mmol/L Chloride 96 L (98-107) mmol/L Glucose 123 H (74-99) mg/dL
[2021-10-21] MEDS ORDERED: IV FLUID CONTINUATION 1,000 ML IV ONE (16:34)
[2021-10-21] MEDS ORDERED: KETAMINE 10 MG/ML 20 ML VIAL ONE (17:04)
[2021-10-21] MEDS ORDERED: fentaNYL (PF) 50 MCG/ML 2 ML AMP ONE (17:04)
[2021-10-21] MEDS ORDERED: MIDAZOLAM 2 MG/2 ML VIAL ONE (17:04)
[2021-10-21] MEDS ORDERED: LACTATED RINGERS 1,000 ML IV ONE (17:20)
[2021-10-21] MEDS ORDERED: SODIUM CHLORIDE 0.9% 100 ML with ceFAZolin 2 GM IV ONE ×2 (17:25)
[2021-10-21] MEDS ORDERED: ceFAZolin 3,000 MG in SODIUM CHLORIDE 0.9% IRRIGATIO 3,000 ML IRRIGATION ONE (17:30)
[2021-10-21] MEDS ORDERED: traMADol 50 MG TAB PO PRN (18:05)
[2021-10-21] MEDS ORDERED: HYDROmorphone 1 MG/ML 1 ML SYRINGE IVP PRN (18:05)
[2021-10-21] MEDS ORDERED: HYDROmorphone 0.5 MG/0.5 ML SYRINGE IVP PRN (18:05)
[2021-10-21] MEDS ORDERED: MAGNESIUM HYDROXIDE 2,400 MG/10 ML CUP PO PRN (18:05)
--- NOTE | 2021-10-21 19:01 | P.OP ---
Date of Procedure: 10/21/21 Preoperative Diagnosis: Impacted/displaced left subcapital femoral neck fracture Postoperative Diagnosis: Same Procedure(s) Performed: Left hip hemiarthroplastypress-fitlateral approach Implants: Depuy Corail size 11 standard press-fit collared femoral stem, 43 mm unipolar head, -3 neck. Anesthesia: spinal Surgeon: David Ng Knife Setter Grinder Machine #1: Mikhail Degroot Estimated Blood Loss (ml): 100 Pathology: other (Femoral head) Condition: stable Disposition: PACU Indications for Procedure: The patient's a 71-year-old female presents after falling at home with an impacted left subcapital femoral neck fracture. A discussion the risks and benefits of operative intervention was made patient and her family. She opted to proceed with surgery. Operative risks to include infection, neurovascular injury, development of blood clots, possible leg length discrepancy, possible fracture, possible instability need for subsequent procedures was discussed. Informed consent was obtained. Operative options were discussed including hemiarthroplasty versus total hip arthroplasty. With her activity level/comorbidities, hemiarthroplasty was considered most optimal. Operative Findings: As below Description of Procedure: The patient was brought to the operating room, and after induction of spinal anesthesia was placed in the lateral decubitus position. Bony prominences were appropriately padded. The pelvis was stabilized perpendicular to the floor with a pegboard. The left lower extremity was prepped and draped in normal fashion. A 12 cm incision was then made centered over the greater trochanter extending superiorly to level ASIS and distally along the femoral shaft. Skin and subcutaneous tissues were divided sharply. Electrocautery was used for hemostasis. The fascia anival and gluteus compa fascia was split in line with the skin incision. Muscle fibers were bluntly dissected proximally. A self- retaining retractor was placed. The anterior and posterior margins of the gluteus medius muscles identified in the into two thirds detached the greater trochanter with electrocautery. The gluteus minimus tendon was identified and detached in a similar fashion. A T-shaped capsulotomy was performed. The capsular flaps were tagged with #2 Ethibond suture. The femoral neck fracture was then identified. A lower neck cut was made at 45 the shaft with a sagittal saw to help facilitate head extraction. Head was then extracted with a corkscrew. It measured 43 millimeters . The acetabulum was inspected. No significant chondral injury was noted. Attention was then paid towards preparing the proximal femur. A box chisel was used to open the metaphyseal region. A canal finder was used to find the femoral canal. Sequential broaching was performed up to a size 11 broach with the leg perpendicular to the floor in 15 of anteversion. There was good rotational stability. A calcar mill was used to fashion the medial calcar. A -3 neck and 43 mm unipolar head was placed. The hip was gently reduced. It was taken through range of motion and felt to be stable in flexion and extension with internal and external rotation. I felt there was adequate jainism of soft tissue tension. Hip was gently dislocated. The trial components were then removed. Pulsatile lavage was utilized. The final size 11 standard collared femoral stem was inserted again with the leg perpendicular to the floor in 15 of anteversion. This was fully seated. Again there was good rotational stability. A -3 neck and 43 mm unipolar head was gently impacted. Hip was gently reduced. Again it was taken through range of motion felt to be stable in flexion and extension with internal and external rotation. Again I felt there was adequate jainism of soft tissue tension. Pulsatile lavage was again utilized. The capsular layer was closed with interrupted #2 Ethibond suture. The gluteus minimus and medius tendons reattached the greater trochanter with #2 Ethibond suture. The fascia anival and gluteus compa fascia was closed with running #2 Ethibond suture. There is minimal drainage therefore a deep drain was not placed. The subcutaneous tissues were reapproximated interrupted 2-0 Vicryl sutures. Skin was reapproximated with 3-0 subcuticular strata fix suture. Skin tape and adhesive was applied. A sterile dressing was applied. The patient was then awoken from sedation and transferred to recovery room in fair condition. Blood loss was estimated at 100 mL. No complications were incurred. Sponge and needle counts were correct at the end the case. Cecil RAY assisted during the major components the case to include positioning, exposure, implantation, and closure.
--- NOTE | 2021-10-21 19:13 | XR ---
EXAMINATION TYPE: XR Hip Limited LT DATE OF EXAM: 10/21/2021 COMPARISON: 10/19/2021 HISTORY: Postop TECHNIQUE: FINDINGS: There is left hip prosthesis. Components are in anatomic position. IMPRESSION: No complicating process seen.
[2021-10-21] MEDS: LABETALOL SYRINGE 5 MG/ML IVP ONE ×2 (19:41→20:02)
[2021-10-21] MEDS ORDERED: hydrALAZINE HCL 20 MG/ML 1 ML VIAL IVP ONE (20:19)
[2021-10-21] MEDS ORDERED: hydrALAZINE HCL 20 MG/ML 1 ML VIAL ONE (20:21)
[2021-10-21] MEDS: ZOLPIDEM 10 MG TAB PO SCH (21:21)
[2021-10-21] MEDS: SENNOSIDES-DOCUSATE SODIUM 1 EACH TAB PO SCH (21:22)
[2021-10-21] MEDS: HYDROcodone/APAP 7.5-325MG 1 EACH TAB PO PRN (21:37)
[2021-10-22] MEDS: SODIUM CHLORIDE 0.9% 1,000 ML IV SCH ×2 (05:16→12:48)
[2021-10-22] MEDS: METOPROLOL TARTRATE 25 MG TAB PO SCH (07:57)
[2021-10-22] MEDS: ASPIRIN 81 MG PO SCH (07:57)
[2021-10-22] MEDS: HEPARIN SODIUM,PORCINE/PF 5,000 UNIT/0.5 ML SYRINGE SQ SCH ×3 (07:57→23:08)
[2021-10-22] MEDS: LOSARTAN 50 MG TAB PO SCH (07:57)
[2021-10-22] MEDS: HYDROcodone/APAP 7.5-325MG 1 EACH TAB PO PRN ×2 (08:02→20:12)
[2021-10-22 09:16] LABS: HCT 32.6 % (37.2-46.3); HGB 10.6 g/dL (12.0-15.0); MCH 28.7 pg (27.0-32.0); MCHC 32.5 g/dL (32.0-37.0); MCV 88.3 fL (80.0-97.0); Mean Platelet Volume 9.3 fL (9.5-12.2); Platelet Count 316 X 10*3/uL (140-440); RBC 3.69 X 10*6/uL (4.10-5.20); RDW 12.4 % (11.5-14.5); WBC 18.03 X 10*3/uL (4.50-10.00)
--- NOTE | 2021-10-22 09:29 | P.PN ---
Subjective Progress Note Date: 10/22/21 Principal diagnosis: Status post left hip hemiarthroplasty Patient was examined today bedside, she is resting in her hospital bed, her is also present. Patient states she is having generalized discomfort in the left lower extremity, it is improved since before surgery. She has not been out of bed at this time. Urinary catheter remains in place. She denies any headaches, lightheadedness, chest pain or shortness of breath. Objective - Vital Signs Vital signs: Vital Signs Temp 99.0 F 10/22/21 07:49 Pulse 113 H 10/22/21 07:49 Resp 18 10/22/21 08:00 BP 162/86 10/22/21 07:49 Pulse Ox 93 L 10/22/21 07:49 Intake & Output 10/21/21 10/22/21 10/22/21 18:59 06:59 18:59 Intake Total 501 100 Output Total 1250 450 Balance -749 -350 Intake: IV 501 100 Output: Urine 1150 450 Estimated Blood Loss 100 Other: Voiding Method Indwelling Catheter Indwelling Catheter Indwelling Catheter - Exam Left lower extremity: Postoperative dressing is in good position and condition, no saturation present. There is minimal soft tissue swelling and ecchymosis surrounding the medial and lateral aspects of the incision. Calf is soft, no tenderness with palpation. Plantar flexion, dorsiflexion, EHL, FHL are intact. Sensory exam to light touch throughout the extremity is intact, dorsal pedis pulses 2+. - Labs CBC & Chem 7: 10/22/21 05:27 10/21/21 07:38 Labs: Abnormal Lab Results - Last 24 Hours (Table) 10/22/21 Range/Units 05:27 WBC 18.03 H (4.50-10.00) X 10*3/uL RBC 3.69 L (4.10-5.20) X 10*6/uL Hgb 10.6 L (12.0-15.0) g/dL Hct 32.6 L (37.2-46.3) % MPV 9.3 L (9.5-12.2) fL Assessment and Plan Assessment: Postoperative day #1 status post left hip hemiarthroplasty Status post fall from standing Morbidly obese Other medical comorbidities Plan: Pain control, continue current medications GI and DVT prophylaxis, continue heparin at this time Weight-bear as tolerated with walker at all times Dressing changes, plan for dressing change 10/23/2021 PT/OT evaluation Encourage incentive spirometer Discharge planning: I long discussion with the patient today regarding discharge plans, she is still adamant in going home. I made it very clear to her that if she still course a lot of assistance that rehab will have to be utilized. This was also discussed with nursing, we will be in contact with case management/also worked to start the process for this. Time with Patient: Less than 30
[2021-10-22] MEDS ORDERED: METOPROLOL TARTRATE 25 MG TAB PO STA (09:59)
[2021-10-22 10:01] LABS: Basophils # (A) 0.05 X 10*3/uL (0.00-0.10); Basophils % (A) 0.3 %; Eosinophils # (A) 0.16 X 10*3/uL (0.04-0.35); Eosinophils % (A) 0.9 %; Lymphocytes # (A) 1.72 X 10*3/uL (0.90-5.00); Lymphocytes % (A) 9.5 %; Monocytes # (A) 1.54 X 10*3/uL (0.20-1.00); Monocytes % (A) 8.5 %; Neutrophils # (A) 14.46 X 10*3/uL (1.80-7.70); Neutrophils % (A) 80.2 %
--- NOTE | 2021-10-22 10:01 | P.PN ---
Subjective Progress Note Date: 10/22/21 HISTORY OF PRESENT ILLNESS: This is a pleasant 71-year-old and female past medical history significant for hypertension, dyslipidemia and sick sinus syndrome status post permanent p acemaker implantation. She follows in the office with Dr. Noonan. We have been asked to see in consultation for preoperative evaluation. She woke up in the middle the night to use the restroom. She thinks she stood too quickly and she became acutely lightheaded and fell unfortunately causing the left femur fracture. She is scheduled to undergo surgical intervention scheduled for this morning. She is seen and examined sitting up in bed in no acute distress. She has no symptoms of chest pain or shortness of breath. EKG revealed sinus rhythm with no acute ST or T-wave abnormalities noted. Chest x-ray is negative for acute cardiopulmonary process. Laboratory data reviewed, WBC 12.9, hemoglobin 12.2, platelets 327, sodium 129, potassium 4.5, creatinine 0.93. Current daily cardiac medications include aspirin 81 mg daily, Lopressor 25 mg daily and losartan 50 mg daily. Most recent stress test performed in the office the Lexiscan stress test in 2017 that was negative for reversible ischemia. Most recent echocardiogram obtained January 2020 revealed preserved LV systolic function with ejection fraction 55%. 10/21/2021 Patient examined this morning at the bedside. She reports pain to her left hip. She also reports nausea and feels like she is going to throw up. She reports abdominal discomfort. She states she thinks it may be related to her anxiety and nerves about her upcoming surgery. She denies chest pain or pressure. Denies shortness of breath. Mildly tachycardic this morning but sounds regular, likely related to anxiety and/or pain. Sodium 128. 10/22/2021 Patient examined this morning at the bedside. She denies chest pain or pressure. Denies shortness of breath. She reports discomfort to her hip. She continues to report nausea but states it is better than yesterday. Blood pressure 162/86. She is mildly tachycardic this morning with a heart rate of 105-113. PHYSICAL EXAM: VITAL SIGNS: Reviewed. GENERAL: Well-developed in no acute distress. NECK: Supple. No JVD or thyromegaly LUNGS: Respirations even and unlabored. Lungs essentially clear to auscultation bilaterally. HEART: Regular rate and rhythm. S1 and S2 heard. EXTREMITIES: Pain to left hip noted. No clubbing or cyanosis. Peripheral pulses intact. No lower extremity edema ASSESSMENT: Fall likely related to orthostatic changes Sinus tachycardia Femur fracture Hyponatremia Hypertension Dyslipidemia Sick sinus syndrome status post permanent pacemaker implantation PLAN: Continue postoperative management per orthopedic team Increase metoprolol to 50mg daily Monitor heart rate and blood pressure Further recommendations pending patient course Nurse practitioner note has been reviewed by physician. Signing provider agrees with the documented findings, assessment, and plan of care. Objective - Vital Signs Vital signs: Vital Signs Temp 99.0 F 10/22/21 07:49 Pulse 113 H 10/22/21 07:49 Resp 18 10/22/21 08:00 BP 162/86 10/22/21 07:49 Pulse Ox 93 L 10/22/21 07:49 Intake & Output 10/21/21 10/22/21 10/22/21 18:59 06:59 18:59 Intake Total 501 100 Output Total 1250 450 Balance -749 -350 Intake: IV 501 100 Output: Urine 1150 450 Estimated Blood Loss 100 Other: Voiding Method Indwelling Catheter Indwelling Catheter Indwelling Catheter - Labs CBC & Chem 7: 10/22/21 05:27 10/21/21 07:38 Labs: Abnormal Lab Results - Last 24 Hours (Table) 10/22/21 Range/Units 05:27 WBC 18.03 H (4.50-10.00) X 10*3/uL RBC 3.69 L (4.10-5.20) X 10*6/uL Hgb 10.6 L (12.0-15.0) g/dL Hct 32.6 L (37.2-46.3) % MPV 9.3 L (9.5-12.2) fL
--- NOTE | 2021-10-22 17:45 | P.PN ---
Subjective Progress Note Date: 10/22/21 The patient is a 71-year-old female with a past medical history of coronary artery disease, sick sinus syndrome status post pacemaker placement, hypertension, hyperlipidemia, who presents to the emergency room after a fall at home. The patient reports that she had been in her usual state of health when on 10/18/21, she walked to her bathroom and after urinating, upon standing up, she felt lightheaded and fell to the ground, hitting her left side. In the emergency room, a hip x-ray revealed a subcapital impacted left femoral neck fracture along with osteopenia. Patient was admitted under Gen. surgery team with Dr. Stevens. We have been consulted to provide continued medical management throughout hospitalization. Patient seen and evaluated at bedside, today patient does not report any worsening of his breathing or report any new significant chest pain. Patient remains in no acute distress. Patient questions and concerns addressed at bedside, proper counseling done. Plan discussed with nursing staff. Objective - Vital Signs Vital signs: Vital Signs Temp 98.1 F 10/22/21 13:52 Pulse 89 10/22/21 13:52 Resp 20 10/22/21 13:52 BP 166/77 10/22/21 13:52 Pulse Ox 95 10/22/21 13:52 Intake & Output 10/21/21 10/22/21 10/22/21 18:59 06:59 18:59 Intake Total 501 100 Output Total 1250 450 400 Balance -749 -350 -400 Intake: IV 501 100 Output: Urine 1150 450 400 Uretheral (Deal) 400 Estimated Blood Loss 100 Other: Voiding Method Indwelling Catheter Indwelling Catheter Indwelling Catheter # Voids 1 General: non toxic, no acute distress, alert oriented to time place and person Head: atraumatic, normocephalic, symmetric Eyes: no lid lesion], anicteric sclera Mouth: no lip lesion, mucus membranes moist Cardiovascular: Irregularly irregular heart rate, systolic murmur heard Lungs: Diminished breath sounds bilaterally Abdominal: soft, nontender to palpation, no guarding, no appreciable organomegaly Ext: Left hip status post surgery, incision area covered with surgical dressing, no surrounding erythema or warmth or swelling noticed. Neuro: Alert oriented to time place and person, exam grossly nonfocal - Labs CBC & Chem 7: 10/22/21 05:27 10/21/21 07:38 Labs: Abnormal Lab Results - Last 24 Hours (Table) 10/22/21 Range/Units 05:27 WBC 18.03 H (4.50-10.00) X 10*3/uL RBC 3.69 L (4.10-5.20) X 10*6/uL Hgb 10.6 L (12.0-15.0) g/dL Hct 32.6 L (37.2-46.3) % MPV 9.3 L (9.5-12.2) fL Immature Gran # 0.10 H (0.00-0.04) X 10*3/uL Neutrophils # 14.46 H (1.80-7.70) X 10*3/uL Monocytes # 1.54 H (0.20-1.00) X 10*3/uL Assessment and Plan Assessment: Presyncope likely vasovagal, resulting fall -No further cardiovascular workup is needed -PT OT and positional training Hyponatremia , stable -Continue gentle hydration with IV fluids -Hypotonic euvolemic hyponatremia possibly post operative hyponatremia TSH was normal. -Stable, continue to monitor History of coronary artery disease, HTN, HLD -Continue home ASA, Losartan and Lopressor Sick sinus syndrome -status post permanent pacemaker implantation History fracture status post left hip hemiarthroplasty Patient procedure done on 10/21/2021 Currently on subcu heparin for DVT prophylaxis Postoperative pain management per orthopedic recommendation CODE STATUS: Full code Due to prophylaxis: Currently on heparin, recommend Lovenox Discharge plan per orthopedic, patient medically stable to be discharged Thank you for allowing us to participate in the care of this pleasant patient. Do not hesitate to contact us with questions. Someone can be reached from the [facility] hospitalist group all hours of the day at [phone] or via perfect serve.
[2021-10-22] MEDS: SENNOSIDES-DOCUSATE SODIUM 1 EACH TAB PO SCH (20:11)
[2021-10-22] MEDS: ZOLPIDEM 10 MG TAB PO SCH (20:12)
[2021-10-22 22:05] VITALS: RESP 18
[2021-10-23] MEDS: HYDROcodone/APAP 7.5-325MG 1 EACH TAB PO PRN (05:42)
[2021-10-23] MEDS: SODIUM CHLORIDE 0.9% 1,000 ML IV SCH (06:16)
[2021-10-23 08:31] VITALS: BP 140/77; PULSE 101; TEMP 98.2
[2021-10-23 08:49] LABS: African American GFR (CKD) 61 (>60 ml/min/1.73 sqM); Anion Gap 4 mmol/L; Blood Urea Nitrogen 20 mg/dL (7-17); Calcium 8.5 mg/dL (8.4-10.2); Carbon Dioxide 24 mmol/L (22-30); Chloride 99 mmol/L (98-107); Glucose 123 mg/dL (74-99); Non-African American GFR(CKD) 53 (>60 ml/min/1.73 sqM); Sodium 127 mmol/L (137-145)
[2021-10-23] MEDS ORDERED: METOPROLOL TARTRATE 50 MG TAB PO SCH (09:00)
[2021-10-23] MEDS: ASPIRIN 81 MG PO SCH (09:23)
[2021-10-23] MEDS: LOSARTAN 50 MG TAB PO SCH (09:24)
[2021-10-23] MEDS: HEPARIN SODIUM,PORCINE/PF 5,000 UNIT/0.5 ML SYRINGE SQ SCH (09:24)
[2021-10-23 09:25] LABS: HCT 27.1 % (37.2-46.3); HGB 8.9 g/dL (12.0-15.0); MCH 29.5 pg (27.0-32.0); MCHC 32.8 g/dL (32.0-37.0); MCV 89.7 fL (80.0-97.0); Mean Platelet Volume 10.1 fL (9.5-12.2); Platelet Count 330 X 10*3/uL (140-440); RBC 3.02 X 10*6/uL (4.10-5.20); RDW 12.6 % (11.5-14.5)
[2021-10-23 10:05] LABS: African American GFR (CKD) 48.1 (60.0-200.0); Anion Gap 17.7 mmol/L (10.00-18.00); BUN/Creat Ratio 13.62 Ratio (12.00-20.00); Blood Urea Nitrogen 17.7 mg/dL (9.0-27.0); Calcium 8.8 mg/dL (8.7-10.3); Carbon Dioxide 16.3 mmol/L (20.0-27.5); Non-African American GFR(CKD) 41.5 (60.0-200.0); Potassium 4.2 mmol/L (3.5-5.5)
--- NOTE | 2021-10-23 10:11 | P.PN ---
Subjective Progress Note Date: 10/23/21 Patient is a 71-year-old female with known coronary artery disease, sick sinus syndrome, hypertension, and dyslipidemia who presented to the ER after a fall at home. She was found to have a hip fracture and subsequently underwent operative repair on 10/21/21. Seen and examined at bedside with present. She states her pain is well controlled at the [place] is doing well. She denies any cough, cold, fever, flu. She denies any dysuria or urinary frequency. She denies any abnormal rashes but does have some bruising after her fall. She had some shortness of breath or chemotherapy which has since resolved. She does not think this is out of her normal. Per her she has had decreased oral intake that he has been encouraging her to eat. She does report that she has not been eating much. General: non toxic, no distress, appears at stated age, obese Derm: warm, dry, bruising left groin, no erythema, formation, older the pannus, dressing intact over left hip. Head: atraumatic, normocephalic, symmetric Eyes: EOMI, no lid lag, anicteric sclera Mouth: no lip lesion, mucus membranes moist Cardiovascular: S1S2 reg, no murmur, positive posterior tibial pulse bilateral, Lungs: Decreased breath sounds bilateral, no rhonchi, no rales , no accessory muscle use Abdominal: soft, nontender to palpation, no guarding, no appreciable organomegaly Ext: no gross muscle atrophy, no edema, no contractures Neuro: CN II-XI grossly intact, no focal neuro deficits Psych: Alert, oriented, appropriate affect Hyponatremia secondary to SIADH -Sodium levels have been going down secondary to IV fluids - decrease losartan dosing -Encourage oral intake -Ensure 3 times a day with meals -1200 mL oral fluid intake restriction -Recommend repeat basic metabolic profile in 2 days -Patient is stable for discharge at this time. Leukocytosis -Suspect reactive -Patient without signs or symptoms of systemic infection -She did have some shortness of breath or chemotherapy and to be safe we'll check a chest x-ray prior to discharge. Once chest x-ray is obtained patient will be optimized for discharge -Repeat CBC in 2 days Fall with left femoral subcapital hip fracture -Management per primary team Transaminitis -Suspect related to fall, improving -No need for further monitoring can have outpatient evaluation Chronic: Sick sinus syndrome Hypertension Coronary artery disease Dyslipidemia. Thank you for allowing us to participate in the care of this pleasant patient. Do not hesitate to contact us with questions. Someone can be reached from the [facility] hospitalist group all hours of the day at [phone] or via Ya[employer] serve. Discharge rec addressed as well as discharge orders. Objective - Vital Signs Vital signs: Vital Signs Temp 98.2 F 10/23/21 08:00 Pulse 101 H 10/23/21 08:00 Resp 18 10/23/21 08:00 BP 140/77 10/23/21 08:00 Pulse Ox 99 10/23/21 08:00 Intake & Output 10/22/21 10/23/21 10/23/21 18:59 06:59 18:59 Intake Total 50 Output Total 400 Balance -350 Intake: Intake, IV Titration 50 Amount ceFAZolin 2 gm In Sodium 50 Chloride 0.9% 50 ml @ 100 mls/hr IVPB Q8HR [facility] Rx# :[id number] Output: Urine 400 Uretheral (Deal) 400 Other: Voiding Method Indwelling Catheter Toilet # Voids 1 1 - Labs CBC & Chem 7: 10/23/21 05:53 10/23/21 08:20 Labs: Abnormal Lab Results - Last 24 Hours (Table) 10/23/21 10/23/21 10/23/21 Range/Units 05:53 05:53 08:20 WBC 19.10 H (4.50-10.00) X 10*3/uL RBC 3.02 L (4.10-5.20) X 10*6/uL Hgb 8.9 L (12.0-15.0) g/dL Hct 27.1 L (37.2-46.3) % Sodium 130 L 127 L (135-145) mmol/L Carbon Dioxide 16.3 L (20.0-27.5) mmol/L BUN 20 H (7-17) mg/dL Creatinine 1.07 H (0.52-1.04) mg/dL Est GFR (CKD-EPI)AfAm 48.1 L (60.0-200.0) Est GFR (CKD-EPI)NonAf 41.5 L (60.0-200.0) Glucose 133 H 123 H (70-110) mg/dL
--- NOTE | 2021-10-23 10:39 | XR ---
EXAMINATION TYPE: XR chest 1V portable DATE OF EXAM: 10/23/2021 COMPARISON: Chest x-ray 10/19/2021 HISTORY: Shortness of breath TECHNIQUE: Single frontal view of the chest is obtained. FINDINGS: There is a generator in the left pectoral region, leads are present in the right atrium an d ventricle. Heart is possibly enlarged, stable. Patient is rotated. No evident pneumothorax or pleur al effusion. Lung volumes are low. Aorta is dense. Postop change noted the proximal right humerus, th ere is thoracic spondylosis. IMPRESSION: Expiratory rotated exam. Possible cardiomegaly.
--- NOTE | 2021-10-23 10:44 | P.PN ---
Subjective Progress Note Date: 10/23/21 Principal diagnosis: Status post left hip hemiarthroplasty Patient was examined today bedside, she is resting in her hospital bed, her is also present. Patient states she is having generalized discomfort in the left lower extremity, it is improved since before surgery. Patient is still requiring assistance with getting in and out of bed, she has not ambulated on her own at this time. She denies any headaches, lightheadedness, chest pain or shortness of breath. Objective - Vital Signs Vital signs: Vital Signs Temp 98.2 F 10/23/21 08:00 Pulse 101 H 10/23/21 08:00 Resp 18 10/23/21 08:00 BP 140/77 10/23/21 08:00 Pulse Ox 99 10/23/21 08:00 Intake & Output 10/22/21 10/23/21 10/23/21 18:59 06:59 18:59 Intake Total 50 Output Total 400 Balance -350 Intake: Intake, IV Titration 50 Amount ceFAZolin 2 gm In Sodium 50 Chloride 0.9% 50 ml @ 100 mls/hr IVPB Q8HR [facility] Rx# :[id number] Output: Urine 400 Uretheral (Deal) 400 Other: Voiding Method Indwelling Catheter Toilet # Voids 1 1 - Exam Left lower extremity: Postoperative bandage was changed today, the tape system is examined position and condition. Incision is clean, dry and intact. There is minimal soft tissue swelling and ecchymosis surrounding the medial and lateral aspects of the incision. Calf is soft, no tenderness with palpation. Plantar flexion, dorsiflexion, EHL, FHL are intact. Sensory exam to light touch throughout the extremity is intact, dorsal pedis pulses 2+. - Labs CBC & Chem 7: 10/23/21 05:53 10/23/21 08:20 Labs: Abnormal Lab Results - Last 24 Hours (Table) 10/23/21 10/23/21 10/23/21 Range/Units 05:53 05:53 08:20 WBC 19.10 H (4.50-10.00) X 10*3/uL RBC 3.02 L (4.10-5.20) X 10*6/uL Hgb 8.9 L (12.0-15.0) g/dL Hct 27.1 L (37.2-46.3) % Sodium 130 L 127 L (135-145) mmol/L Carbon Dioxide 16.3 L (20.0-27.5) mmol/L BUN 20 H (7-17) mg/dL Creatinine 1.07 H (0.52-1.04) mg/dL Est GFR (CKD-EPI)AfAm 48.1 L (60.0-200.0) Est GFR (CKD-EPI)NonAf 41.5 L (60.0-200.0) Glucose 133 H 123 H (70-110) mg/dL Assessment and Plan Assessment: Postoperative day #2 status post left hip hemiarthroplasty Status post fall from standing Morbidly obese Other medical comorbidities Plan: Pain control, plan for discharge on [place] 7.5 mg/325 mg GI and DVT prophylaxis, heparin 5000 units every 8 hours for 30 days Weight-bear as tolerated with walker at all times Dressing changes daily PT/OT evaluation Encourage incentive spirometer Discharge planning: Again discussed with the patient and her today bedside likelihood of rehab, patient is requiring a lot of assistance. I feel at this time will be her best option and safest option. Patient agrees and would like to go to rehab. Discussed the case with internal medicine today al so. We'll await okay from social work/case management.
--- NOTE | 2021-10-23 11:00 | P.DS ---
Providers Date of admission: 10/19/21 15:21 Expected date of discharge: 10/23/21 Attending physician: David Ng Consults: 10/19/21 15:12 Consult Physician Urgent Consulting Provider: Maximilian Grace Consult Reason/Comments: femur fracture Do you want consulting provider notified?: Yes Primary care physician: [facility] Course: Date of admission: 10/20/2021 Date of discharge: 10/23/2021 Admission diagnosis: Displaced left femoral neck fracture Discharge diagnosis: Status post left hip hemiarthroplasty Attending physician: Dr. Ng Surgical procedures: Left hip hemiarthroplasty Brief history: Patient is a 71-year-old female who presents [facility] on [facility] for evaluation of an injury to her left lower extremity. Patient fell at home a few days prior, her symptoms had worsened which prompted her to go back to the hospital for evaluation. It was determined she had a displaced left femoral neck fracture on the left side. Patient was admitted under our orthopedic care with plan for surgical intervention. Proper consults were placed for medical management and clearance is. Hospital course: Details of patient's surgery can be found in operative report. Patient tolerated the procedure well and was subsequently transported to orthopedic floor. Patient's orthopeidc and medical care was provided daily. Patient had daily laboratory tests performed for evaluation of overall blood counts. Patient had daily physical therapy to include strengthening range of motion as well as education with walker ambulation. Patient was treated with heparin for their postoperative DVT prophylaxis during their inpatient stay. Patient was noted to have a relatively uneventful postoperative course. Patient reported satisfactory pain control with oral pain medications by postoperative day 0. Patient showed satisfactory progress with physical therapy. Patient moved steadily through the program and had no difficulty meeting the goals by postoperative day 2. Given patient's otherwise satisfactory course and having met physical therapy goals, plan is to discharge patient rehab on postoperative day 2. Discharge condition/disposition: Patient will be discharged rehab in stable condition. Discharge medications: Instructions are given on resumption of patient's normal daily medications per primary care recommendation, in addition patient will be prescribed [place] 7.5 mg/325 mg, Colace 100mg, heparin 5000 units. Discharge instructions: 1. Wound care and infection precautions, keep incision dry and covered while s howering, no lotions, creams, moisturizers. No soaking, tubs, pools, hottubs. Do not scrub over the incision. 2. Weight-bear as tolerated with walker / cane until follow-up. 3. Ice and elevate when necessary. Do not exceed 20 minutes per hour with ice pack. 4. Utilize compression sleeve until seen at first follow up appointment. 5. Visiting nursing care. 6. Home physical therapy. 7. Pain meds and anticoagulants per prescription. 8. Pain medication has potential to cause constipation. Increase oral fluid and fiber intake. Contact primary care provider if you have not had a bowel movement within 48 hours after discharge 9. No anti-inflammatory medication until discussed at first post operative visit, this including Motrin, Aleve, Mobic, Diclofenac. 10. Follow up in office at 2 weeks postop with Cecil Degroot PA-C/Shan Santiago 11. Follow up with your primary care doctor 7-10 days after discharge. 12. Contact [facility] with any questions, . Procedures: Left hip hemiarthroplasty Patient Condition at Discharge: Good Plan - Discharge Summary Discharge Rx Participant: No New Discharge Prescriptions: New Heparin Sodium,Porcine [Heparin Sodium] 5,000 unit SQ Q8HR #30 each HYDROcodone/APAP 7.5-325MG [[place] 7.5] 1 each PO Q6HR PRN #28 tab PRN Reason: Pain Docusate [Colace] 100 mg PO DAILY #30 capsule Continue Zolpidem Tartrate [Ambien] 10 mg PO HS Acetaminophen [Tylenol Arthritis] 1,300 mg PO Q12H PRN PRN Reason: Pain Metoprolol Tartrate [Lopressor] 25 mg PO DAILY Aspirin 81 mg PO DAILY Changed Losartan Potassium 25 mg PO DAILY #0 Discharge Medication List Zolpidem Tartrate [Ambien] 10 mg PO HS 08/06/19 [History] Acetaminophen [Tylenol Arthritis] 1,300 mg PO Q12H PRN 10/19/21 [History] Metoprolol Tartrate [Lopressor] 25 mg PO DAILY 10/19/21 [History] Aspirin 81 mg PO DAILY 10/20/21 [History] Docusate [Colace] 100 mg PO DAILY #30 capsule 10/23/21 [Rx] HYDROcodone/APAP 7.5-325MG [[place] 7.5] 1 each PO Q6HR PRN #28 tab 11/24/21 [Rx] Heparin Sodium,Porcine [Heparin Sodium] 5,000 unit SQ Q8HR #30 each 10/23/21 [Rx] Losartan Potassium 25 mg PO DAILY #0 10/23/21 [Rx] Follow up Appointment(s)/Referral(s): Shan Chaidez PAC [PHYSICIAN SKOOG OPERATOR] - 11/07/21 9:00 am Ledy Muniz MD [Primary Care Provider] - 1 Week Activity/Diet/Wound Care/Special Instructions: Diet: regular with ensure three times daily with meals and 1500 cc fluid restriction Special Instructions: Repeat CBC and BMP in 2 days DX: leukocytosis and hyponatremia. Orthopedic Discharge Instructions: 1. Wound care and infection precautions, keep incision dry and covered while showering, no lotions, creams, moisturizers. No soaking, pools, hot tubs. Do not scrub over incision. 2. Weight-bear as tolerated with walker / cane until follow-up. 3. Ice and elevate when necessary. Do not exceed 20 minutes per hour with ice pack. 4. Utilize compression sleeve until seen at first follow up appointment. 5. Pain meds and anticoagulants per prescription. 6. Pain medication has potential to cause constipation. Increase oral fluid and fiber intake. Contact primary care provider if you have not had a bowel movement within 48 hours after discharge. 7. No anti-inflammatory medication until discussed at first post operative v isit, this including Motrin, Aleve, Mobic, Diclofenac. 8. Follow up in office at 2 weeks postop with Cecil Degroot PA-C/Shan Chaidez PA-C 9. Follow up with your primary care doctor 7-10 days after discharge. 10. Contact [facility] with any questions, . Discharge Disposition: TRANSFER TO SNF/ECF
--- NOTE | 2021-11-21 16:42 | ED ---
Fall HPI - General Source: patient, EMS, RN notes reviewed Mode of arrival: EMS <Keenan Schmidt - Last Filed: 11/21/21 16:38> <Shante Curiel - Last Filed: 11/26/21 01:01> - General Chief Complaint: Fall Stated Complaint: Hip pain - History of Present Illness Initial Comments: Patient is a 8-year-old female that presents to the emergency department complaining of hip pain after falling out of bed on 10/19/2021. Patient denied taking blood thinners or hitting her head. Patient was otherwise well-appearing in no apparent distress. She denied any chest pain shortness of breath headache nausea vomiting diarrhea constipation fever fatigue chills. (Keenan Schmidt) - Related Data Home Medications Medication Instructions Recorded Confirmed Acetaminophen [Tylenol Arthritis] 1,300 mg PO Q12H PRN 10/19/21 10/19/21 Metoprolol Tartrate [Lopressor] 25 mg PO DAILY 10/19/21 10/19/21 Aspirin 81 mg PO DAILY 10/20/21 10/20/21 Previous Rx's Medication Instructions Recorded Docusate [Colace] 100 mg PO DAILY #30 capsule 10/23/21 HYDROcodone/APAP 7.5-325MG [[place] 1 each PO Q6HR PRN #28 tab 10/23/21 7.5] Heparin Sodium,Porcine [Heparin 5,000 unit SQ Q8HR #30 each 10/23/21 Sodium] Losartan Potassium 25 mg PO DAILY #0 10/23/21 Zolpidem Tartrate [Ambien] 10 mg PO HS #4 tab 10/23/21 Zolpidem [Ambien] 10 mg PO HS #4 tab 10/23/21 Allergies Allergy/AdvReac Type Severity Reaction Status Date / Time nitroglycerin Allergy Nausea & Verified 10/21/21 16:49 Vomiting & Diarrhea Review of Systems ROS Other: All systems not noted in ROS Statement are negative. <Kenean Schmidt - Last Filed: 11/21/21 16:38> ROS Other: All systems not noted in ROS Statement are negative. <Shante Curiel - Last Filed: 11/26/21 01:01> ROS Statement: Those systems with pertinent positive or pertinent negative responses have been documented in the HPI. Past Medical History Past Medical History: Coronary Artery Disease (CAD), Chest Pain / Angina, CVA/TIA, Hyperlipidemia, Hypertension, Myocardial Infarction ([place]), Osteoarthritis (OA) Additional Past Medical History / Comment(s): TIA 3, SICK SINUS SYNDROME Last Myocardial Infarction Date:: unknown History of Any Multi-Drug Resistant Organisms: None Reported Past Surgical History: Section, Cholecystectomy, Heart Catheterization, Pacemaker Additional Past Surgical History / Comment(s): medronic pacemaker Past Anesthesia/Blood Transfusion Reactions: No Reported Reaction Type of Cardiac Device: Permanent Pacemaker Device Placement Date:: April 2021 Past Psychological History: No Psychological Hx Reported Smoking Status: Never smoker Past Alcohol Use History: None Reported Past Drug Use History: None Reported - Past Family History Father Family Medical History: Diabetes Mellitus, Myocardial Infarction ([place]) Sister(s) Additional Family Medical History / Comment(s): enlarged heart at age 50 <Keenan Schmidt - Last Filed: 11/21/21 16:38> General Exam General appearance: alert, in no apparent distress, obese Head exam: Present: atraumatic, normocephalic, normal inspection Eye exam: Present: normal appearance, PERRL, EOMI. Absent: scleral icterus, conjunctival injection, periorbital swelling ENT exam: Present: normal exam, mucous membranes moist Neck exam: Present: normal inspection. Absent: tenderness, meningismus, lymphadenopathy Respiratory exam: Present: normal lung sounds bilaterally. Absent: respiratory distress, wheezes, rales, rhonchi, stridor Cardiovascular Exam: Present: regular rate, normal rhythm, normal heart sounds. Absent: systolic murmur, diastolic murmur, rubs, gallop, clicks GI/Abdominal exam: Present: soft, normal bowel sounds. Absent: distended, tenderness, guarding, rebound, rigid Extremities exam: Present: normal inspection, full ROM, normal capillary refill, other (Pain and left hip). Absent: tenderness, pedal edema, joint swelling, calf tenderness Neurological exam: Present: alert, oriented X3 Psychiatric exam: Present: normal affect, normal mood Skin exam: Present: warm, dry, intact, normal color. Absent: rash <Keenan Schmidt - Last Filed: 11/21/21 16:38> Course Vital Signs 10/19/21 10/19/21 13:05 17:01 Temperature 98.2 F Pulse Rate 103 H 77 Respiratory 18 18 Rate Blood Pressure 184/90 162/64 O2 Sat by Pulse 98 98 Oximetry Procedures - [place] Protocol (Time Out) Patient Identification (2 identifiers required): Chart, Verbal, Arm Band, Name, Birthdate Patient/Legal Water Restoration Technician has Confirmed: Identity, Site, Procedure, Consent Site Marked: Yes <Keenan Schmidt - Last Filed: 11/21/21 16:38> Medical Decision Making - Lab Data Result diagrams: 10/23/21 05:53 10/23/21 08:20 - Radiology Data Radiology results: report reviewed, image reviewed <Keenan Schmidt - Last Filed: 11/21/21 16:38> - Lab Data Result diagrams: 10/23/21 05:53 10/23/21 08:20 <Shante Curiel - Last Filed: 11/26/21 01:01> - Medical Decision Making Female that fell complaining of left hip pain. Labs, imaging, 4 monos morphine ordered. Labs show white count of 13.1. X-ray shows osteopenia with an impacted slightly rotated and angulated subcapital left femoral neck fracture. Case discussed with Dr. Curiel. Orthopedics and medicine was consulted and patient will be admitted to hospital. (Keenan Schmidt) I was available for consultation in the emergency department. The history and physical exam were done by the midlevel provider. I was consulted for this patients care. I reviewed the case with the midlevel provider and based on th eir presentation of the patient, I agree with the assessment, medical decision making and plan of care as documented. Chart was dictated using [employer] dictation software. Attempts were made to correct any dictation errors however some typographical errors may persist. Patient was seen during a national state of emergency due to the Covid-19 pandemic. (Shante Curiel) - Lab Data Lab Results 10/19/21 Range/Units 14:47 WBC 13.1 H (3.8-10.6) k/uL RBC 4.02 (3.80-5.40) m/uL Hgb 12.0 (11.4-16.0) gm/dL Hct 35.9 (34.0-46.0) % MCV 89.2 (80.0-100.0) fL MCH 29.9 (25.0-35.0) pg MCHC 33.5 (31.0-37.0) g/dL RDW 12.7 (11.5-15.5) % Plt Count 330 (150-450) k/uL MPV 7.7 Neutrophils % 83 % Lymphocytes % 10 % Monocytes % 5 % Eosinophils % 1 % Basophils % 0 % Neutrophils # 10.9 H (1.3-7.7) k/uL Lymphocytes # 1.3 (1.0-4.8) k/uL Monocytes # 0.6 (0-1.0) k/uL Eosinophils # 0.2 (0-0.7) k/uL Basophils # 0.1 (0-0.2) k/uL - Radiology Data X-ray shows osteopenia with an impacted slightly rotated and angulated subcapital left femoral neck fracture. (Keenan Schmidt) Disposition Time of Disposition: 16:42 <Keenan Schmidt - Last Filed: 11/21/21 16:38> <Shante Curiel - Last Filed: 11/26/21 01:01> Clinical Impression: Hip fracture, left Disposition: ADMITTED IP TO THIS [facility] Condition: Good
== END 2021-10-23 14:09 | DRG 522 ==
LOC: EC 13:03 → 4SSUR 15:21
PROVIDERS: ADMIT Orthopaedic Surgery; ATTEND Orthopaedic Surgery
PROC: 0SRS0JA Replacement of Left Hip Joint, Femoral Surface with Synthetic Substitute, Uncemented, Open Approach (ICD-10-PCS; principal; 2021-10-21 11:05)
DX: S72.012A Unspecified intracapsular fracture of left femur, initial encounter for closed fracture (principal); E22.2 Syndrome of inappropriate secretion of antidiuretic hormone; W01.0XXA Fall on same level from slipping, tripping and stumbling without subsequent striking against object, initial encounter; I25.10 Atherosclerotic heart disease of native coronary artery without angina pectoris; E78.5 Hyperlipidemia, unspecified; E66.01 Morbid (severe) obesity due to excess calories; Z68.37 Body mass index [BMI] 37.0-37.9, adult; Z20.822 Contact with and (suspected) exposure to COVID-19; I10 Essential (primary) hypertension; F41.9 Anxiety disorder, unspecified; I49.5 Sick sinus syndrome; M19.90 Unspecified osteoarthritis, unspecified site; M85.80 Other specified disorders of bone density and structure, unspecified site; Y92.009 Unspecified place in unspecified non-institutional (private) residence as the place of occurrence of the external cause; Z86.73 Personal history of transient ischemic attack (TIA), and cerebral infarction without residual deficits; Z95.0 Presence of cardiac pacemaker; Z88.8 Allergy status to other drugs, medicaments and biological substances; I25.2 Old myocardial infarction; Z79.01 Long term (current) use of anticoagulants; Z79.82 Long term (current) use of aspirin; Z79.899 Other long term (current) drug therapy; Z82.49 Family history of ischemic heart disease and other diseases of the circulatory system; Z83.3 Family history of diabetes mellitus
CPT/HCPCS: 36415; 71045; 73501; 73502; 80048; 80053; 83930; 83935; 84300; 84443; 85025; 85027; 85610; 85730; 87635; 88305; 88311; 93005; 96372; 99285

== ENCOUNTER → 2024-02-22 | Outpatient (CLI) | payer MEDICARE ==
--- NOTE | 2024-02-22 12:39 | US ---
EXAMINATION TYPE: US abdomen complete DATE OF EXAM: 02/22/2024 COMPARISON: NONE CLINICAL INDICATION: Female, 73 years old with history of R10.11 RUQ; RUQ pain, GB surgically absent TECHNIQUE: Multiple sonographic images of the abdomen are obtained. FINDINGS: EXAM MEASUREMENTS: Liver Length: 13.8 cm CBD: 1.1 cm Spleen: 8.6 cm Right Kidney: 10.0 x 5.4 x 4.6 cm Left Kidney: 9.9 x 4.7 x 4.2 cm MOLECULAR SPECTROSCOPIST NOTES: Morbidly obese pt, difficult exam Pancreas: wnl, tail obscured by overlying bowel gas Liver: Heterogeneous Gallbladder: Surgically absent Evidence for sonographic Pate's sign: No CBD: wnl Spleen: wnl Right Kidney: Cortical thinning, no evidence of hydro Left Kidney: Cortical thinning, no evidence of hydro Upper IVC: wnl Abd Aorta: Proximal portion wnl, mid and distal portions gassed out IMPRESSION: Cortical thinning of the bilateral kidneys. With failure
== END | disposition home or self-care (01) ==
LOC: RADUSWWP 07:52
PROVIDERS: ATTEND Family Medicine
DX: N17.1 Acute kidney failure with acute cortical necrosis (principal)
CPT/HCPCS: 76700

== ENCOUNTER 2025-01-25 13:30 | Inpatient (IN) | payer MEDICARE ==
--- NOTE | 2025-01-25 13:53 | ED ---
General Adult HPI - General Chief complaint: Weakness Stated complaint: Fall,AMS Time Seen by Provider: 01/25/25 13:32 Source: patient Mode of arrival: ambulatory Limitations: no limitations - History of Present Illness Initial comments: Dictation was produced using [employer] dictation software. please excuse any grammatical, word or spelling errors. Chief Complaint: 74-year-old female presents emergency department by EMS after being found down History of Present Illness: Patient 74-year-old female she lives by herself. States she used to live with her her got arrested and is currently in penitentiary. She has been checked in a pond by her neighbor. Patient last seen around 10 PM last night. Neighbor found her on the ground with a hem atoma on her left forehead. Patient states that she was sleeping on the ground because she went to watch TV. Does not remember falling. Denies any pain complaints. States that she is recovering from a viral URI. She has been around her neighbors kids who have been kind of sick. Patient states she has history of a bad heart. The ROS documented in this emergency department record has been reviewed and confirmed by me. Those systems with pertinent positive or negative responses have been documented in the HPI. All other systems are other negative and/or noncontributory. - Related Data Home Medications Medication Instructions Recorded Confirmed Metoprolol Tartrate [Lopressor] 25 mg PO DAILY 10/19/21 01/25/25 Rosuvastatin [Crestor] 20 mg PO DAILY 01/25/25 01/25/25 Previous Rx's Medication Instructions Recorded Zolpidem [Ambien] 10 mg PO HS #4 tab 10/23/21 Allergies Allergy/AdvReac Type Severity Reaction Status Date / Time nitroglycerin Allergy Nausea & Verified 01/25/25 15:42 Vomiting & Diarrhea Review of Systems ROS Statement: Those systems with pertinent positive or pertinent negative responses have been documented in the HPI. ROS Other: All systems not noted in ROS Statement are negative. Past Medical History Past Medical History: Coronary Artery Disease (CAD), Chest Pain / Angina, CVA/TIA, Hyperlipidemia, Hypertension, Myocardial Infarction ([place]), Osteoarthritis (OA) Additional Past Medical History / Comment(s): TIA 3, SICK SINUS SYNDROME Last Myocardial Infarction Date:: unknown History of Any Multi-Drug Resistant Organisms: None Reported Past Surgical History: Section, Cholecystectomy, Heart Catheterization, Pacemaker Additional Past Surgical History / Comment(s): medronic pacemaker Past Anesthesia/Blood Transfusion Reactions: No Reported Reaction Type of Cardiac Device: Permanent Pacemaker Device Placement Date:: April 2021 Past Psychological History: No Psychological Hx Reported Smoking Status: Never smoker Past Alcohol Use History: None Reported Past Drug Use History: None Reported - Past Family History Father Family Medical History: Diabetes Mellitus, Myocardial Infarction ([place]) Sister(s) Additional Family Medical History / Comment(s): enlarged heart at age 50 General Exam - General Exam Comments Initial Comments: PHYSICAL EXAM: General Impression: Alert and oriented x3, not in acute distress HEENT: hematoma and abrasion to the left forehead, extra-ocular movements intact, pupils equal and reactive to light bilaterally, mucous membranes moist. Cardiovascular: Heart regular rate and rhythm Chest: Able to complete full sentences, no retractions, no tachypnea Abdomen: abdomen soft, non-tender, non-distended, no organomegaly Musculoskeletal: Pulses present and equal in all extremities, no peripheral edema Motor: no focal deficits noted Neurological: CN II-XII grossly intact, no focal motor or sensory deficits noted Skin: Intact with no visualized rashes Psych: Normal affect and mood Limitations: no limitations Course Vital Signs 01/25/25 01/25/25 13:32 15:21 Temperature 97.1 F L Pulse Rate 126 H 114 H Respiratory 18 18 Rate Blood Pressure 169/103 115/72 O2 Sat by Pulse 96 97 Oximetry EKG Findings - EKG Comments: EKG Findings:: My EKG interpretation: Ventricular rate 122, sinus tachycardia, MA interval 165, QRS 74, QTc 478. No MA prolongation, no QTC prolongation, no ST or T-wave changes noted. Overall, this EKG is unremarkable Medical Decision Making - Medical Decision Making Was pt. sent in by a medical professional or institution (, PA, DATA CENTER TECHNICIAN, urgent care, hospital, or care home...) When possible be specific @ -No Did you speak to anyone other than the patient for history (EMS, parent, family, police, friend...)? What history was obtained from this source @ -No Did you review nursing and triage notes (agree or disagree)? Why? @ -I reviewed and agree with nursing and triage notes Were old charts reviewed (outside hosp., previous admission, EMS record, old EKG, old radiological studies, urgent care reports/EKG's, care home records)? Report findings @ -No old charts were reviewed Differential Diagnosis (chest pain, altered mental status, abdominal pain women, abdominal pain men, vaginal bleeding, musculoskeletal, weakness, fever, dyspnea, syncope, headache, dizziness, GI bleed, back pain, seizure, CVA, palpatations, mental health)? @ -Differential Weakness: Hypoglycemia, shock, sepsis, hyponatremia, anemia, infection, [place], ETOH, adverse medicine reaction, overdose, stroke, this is not meant to be an all-inclusive list. EKG interpreted by me (3pts min.). @ -See above X-rays interpreted by me (1pt min.). @ -Chest x-ray and pelvis x-ray shows no acute processes CT interpreted by me (1pt min.). @ -CT brain and C-spine shows no acute processes U/S interpreted by me (1pt. min.). @ -None done What testing was considered but not performed or refused? (CT, X-rays, U/S, labs)? Why? @ -None What meds were considered but not given or refused? Why? @ -None Was smoking cessation discussed for >3mins.? @ -No Were there social determinants of health that impacted care today? How? (Homelessness, low income, unemployed, alcoholism, drug addiction, whitt sportation, low edu. Level, literacy, decrease access to med. care, penitentiary, rehab)? @ -No Was there de-escalation of care discussed even if they declined (Discuss DNR or withdrawal of care, Hospice)? DNR status @ -No What co-morbidities impacted this encounter? (DM, HTN, Smoking, COPD, CAD, Cancer, CVA, ARF, Chemo, Hep., AIDS, mental health diagnosis, sleep apnea, morbid obesity)? @ -None Was patient admitted / discharged? Hospital course, mention meds given and route, prescriptions, significant lab abnormalities, going to OR and other pertinent info. @ -74-year-old female presents emergency department after being found on the ground. States that she slipped on the floor. Denies any fall however she does have a bump on her left forehead. Vital signs upon arrival shows tachycardia 126 rest of vital signs within acceptable limits. Patient not hypotensive. Laboratory evaluation obtained. Leukocytosis 26.9, coag panel is unremarkable. Metabolic panel shows lactic acidosis of 5.1 rhabdo with a CK of 2105. Patient's rhabdo is nonexertional. She has normal kidney function. Serum alcohol is negative. Imaging studies are negative. Clinical presentation consistent with SIRS, pending urine studies. She denies any urinary symptoms. Patient given 30 cc/kg bolus based on ideal body weight. Pending urine studies to determine need for antibiotics. Did you discuss the management of the patient with other professionals (professionals i.e. , PA, DATA CENTER TECHNICIAN, lab, RT, psych nurse, social security specialist, sign painter apprentice, teacher, seaman officer, classification case manager)? Give summary @ -Discussed with hospitalist for admission Was critical care preformed (if so, how long)? @ -Yes, 33 minutes for metabolic derangement management Undiagnosed new problem with uncertain prognosis? @ -No Drug Therapy requiring intensive monitoring for toxicity (Heparin, Nitro, Insulin, Cardizem)? @ -No Were any procedures done? @ -No Diagnosis/symptom? Acute, or Chronic, or Acute on Chronic? Uncomplicated (without systemic symptoms) or Complicated (systemic symptoms)? @ -Nonexertional rhabdomyolysis Side effects of treatment? @ -No Exacerbation, Progression, or Severe Exacerbation? @ -No Poses a threat to life or bodily function? How? (Chest pain, [place], [place], pneumonia, PE, COPD, DKA, ARF, appy, cholecystitis, CVA, Diverticulitis, Homicidal, Suicidal, threat to staff... and all critical care pts) @ -yes - Lab Data Result diagrams: 01/25/25 14:24 01/25/25 14:24 Lab Results 01/25/25 01/25/25 01/25/25 Range/Units 14:24 14:24 14:24 WBC 26.9 H (3.8-10.6) k/uL RBC 5.10 (3.80-5.40) m/uL Hgb 14.6 (11.4-16.0) gm/dL Hct 45.4 (34.0-46.0) % MCV 89.0 (80.0-100.0) fL MCH 28.5 (25.0-35.0) pg MCHC 32.1 (31.0-37.0) g/dL RDW 13.7 (11.5-15.5) % Plt Count 464 H (150-450) k/uL MPV 7.4 Neutrophils % 88 % Lymphocytes % 6 % Monocytes % 4 % Eosinophils % 2 % Basophils % 0 % Neutrophils # 23.7 H (1.3-7.7) k/uL Lymphocytes # 1.7 (1.0-4.8) k/uL Monocytes # 0.9 (0-1.0) k/uL Eosinophils # 0.4 (0-0.7) k/uL Basophils # 0.1 (0-0.2) k/uL PT 11.4 (10.0-12.5) sec INR 1.0 (<1.2) APTT 25.5 (22.0-30.0) sec Sodium 135 L (137-145) mmol/L Potassium 4.2 (3.5-5.1) mmol/L Chloride 96 L (98-107) mmol/L Carbon Dioxide 22 (22-30) mmol/L Anion Gap 17 mmol/L BUN 12 (7-17) mg/dL Creatinine 0.97 (0.52-1.04) mg/dL Est GFR (CKD-EPI)AfAm 67 (>60 ml/min/1.73 sqM) Est GFR (CKD-EPI)NonAf 58 (>60 ml/min/1.73 sqM) Glucose 157 H (74-99) mg/dL Lactic Ac Sepsis Rflx Plasma Lactic Acid Brandyn (0.7-2.0) mmol/L Calcium 9.9 (8.4-10.2) mg/dL Magnesium 1.7 (1.6-2.3) mg/dL Total Bilirubin 1.2 (0.2-1.3) mg/dL AST 94 H (14-36) U/L ALT 44 H (4-34) U/L Alkaline Phosphatase 114 (38-126) U/L Ammonia (<30) umol/L Creatine Kinase 2105 H* (30-135) U/L Troponin I (0.000-0.034) ng/mL Total Protein 8.6 H (6.3-8.2) g/dL Albumin 4.7 (3.5-5.0) g/dL Serum Alcohol <10 mg/dL 01/25/25 01/25/25 01/25/25 Range/Units 14:24 14:24 15:00 WBC (3.8-10.6) k/uL RBC (3.80-5.40) m/uL Hgb (11.4-16.0) gm/dL Hct (34.0-46.0) % MCV (80.0-100.0) fL MCH (25.0-35.0) pg MCHC (31.0-37.0) g/dL RDW (11.5-15.5) % Plt Count (150-450) k/uL MPV Neutrophils % % Lymphocytes % % Monocytes % % Eosinophils % % Basophils % % Neutrophils # (1.3-7.7) k/uL Lymphocytes # (1.0-4.8) k/uL Monocytes # (0-1.0) k/uL Eosinophils # (0-0.7) k/uL Basophils # (0-0.2) k/uL PT (10.0-12.5) sec INR (<1.2) APTT (22.0-30.0) sec Sodium (137-145) mmol/L Potassium (3.5-5.1) mmol/L Chloride (98-107) mmol/L Carbon Dioxide (22-30) mmol/L Anion Gap mmol/L BUN (7-17) mg/dL Creatinine (0.52-1.04) mg/dL Est GFR (CKD-EPI)AfAm (>60 ml/min/1.73 sqM) Est GFR (CKD-EPI)NonAf (>60 ml/min/1.73 sqM) Glucose (74-99) mg/dL Lactic Ac Sepsis Rflx Y Plasma Lactic Acid Brandyn 5.1 H* (0.7-2.0) mmol/L Calcium (8.4-10.2) mg/dL Magnesium (1.6-2.3) mg/dL Total Bilirubin (0.2-1.3) mg/dL AST (14-36) U/L ALT (4-34) U/L Alkaline Phosphatase (38-126) U/L Ammonia 10 (<30) umol/L Creatine Kinase (30-135) U/L Troponin I 0.030 (0.000-0.034) ng/mL Total Protein (6.3-8.2) g/dL Albumin (3.5-5.0) g/dL Serum Alcohol mg/dL Disposition Clinical Impression: Rhabdomyolysis Disposition: ADMITTED IP TO THIS HOSP Condition: Serious Referrals: None,Stated [Primary Care Provider] - 1-2 days Decision Time: 17:12
[2025-01-25 14:33] LABS: Basophils # (A) 0.1 k/uL (0-0.2); Basophils % (A) 0 %; Eosinophils # (A) 0.4 k/uL (0-0.7); Eosinophils % (A) 2 %; HCT 45.4 % (34.0-46.0); HGB 14.6 gm/dL (11.4-16.0); Lymphocytes # (A) 1.7 k/uL (1.0-4.8); Lymphocytes % (A) 6 %; MCH 28.5 pg (25.0-35.0); MCHC 32.1 g/dL (31.0-37.0); Mean Platelet Volume 7.4; Monocytes # (A) 0.9 k/uL (0-1.0); Monocytes % (A) 4 %; Neutrophils # (A) 23.7 k/uL (1.3-7.7); Neutrophils % (A) 88 %; Platelet Count 464 k/uL (150-450); RDW 13.7 % (11.5-15.5); WBC 26.9 k/uL (3.8-10.6)
[2025-01-25 14:43] LABS: African American GFR (CKD) 67 (>60 ml/min/1.73 sqM); Albumin 4.7 g/dL (3.5-5.0); Alcohol <10 mg/dL; Anion Gap 17 mmol/L; Blood Urea Nitrogen 12 mg/dL (7-17); Calcium 9.9 mg/dL (8.4-10.2); Carbon Dioxide 22 mmol/L (22-30); Chloride 96 mmol/L (98-107); Glucose 157 mg/dL (74-99); Non-African American GFR(CKD) 58 (>60 ml/min/1.73 sqM); Sodium 135 mmol/L (137-145); Total Bilirubin 1.2 mg/dL (0.2-1.3); Total Protein 8.6 g/dL (6.3-8.2)
[2025-01-25 14:57] LABS: ALT 44 U/L (4-34); AST 94 U/L (14-36); Alkaline Phosphatase 114 U/L (38-126); Magnesium 1.7 mg/dL (1.6-2.3); Potassium 4.2 mmol/L (3.5-5.1)
[2025-01-25 14:59] LABS: Creatine Kinase 2105 U/L (30-135); Lactic Acid, Venous 5.1 mmol/L (0.7-2.0)
[2025-01-25 15:04] LABS: Partial Thromboplastin Time 25.5 sec (22.0-30.0); Prothrombin Time 11.4 sec (10.0-12.5)
--- NOTE | 2025-01-25 15:06 | CT ---
EXAMINATION TYPE: CT brain jan abraham con DATE OF EXAM: 01/25/2025 COMPARISON: None CLINICAL INDICATION: Female, 74 years old with history of fall; PHH, Unwitnessed fall. Confusion. No thinners, unknown LOC. TECHNIQUE: CT scan of the head and cervical spine are performed without contrast. CT DLP: 1646.[address] CTDI: mGy Automated exposure control for dose reduction was used. Findings: Head CT: The ventricles, basal cisterns and sulci over convexities are moderately enlarged consistent with mod erate generalized atrophy appropriate for the patient's age. There is no acute intra or extra-axial hemorrhage. Posterior fossa including the brainstem, fourth ventricle and cerebellar pontine angles are grossly n ormal. The intraorbital contents appear normal and symmetric. Visualized paranasal sinuses are well aerated. CT cervical spine: Craniovertebral junction relationships and prevertebral soft tissues are normal. The cervical vertebral segments are normal in height and alignment and there is no fracture subluxati on. There is advanced degenerative disc disease in the lower cervical spine at C5-6 and C6-7 levels and m ild degenerative disease C4 and C4-5 levels. There is mild facet arthropathy. There is advanced degeneration of the uncovertebral joints lower cervical spine. There is no bony com promise of the cervical canal. There is multilevel bony neural foraminal encroachment as follows; severe at the C3-4 level on the le ft, severe at the C4-5 level on the left, mild at the C4-5 level on the right, mild at C5-6 level sherlyn aterally. The bony cervical canal is widely patent and there is no bony encroachment of the neural foramina. The paraspinal soft tissues unremarkable. IMPRESSION: 1. Head CT: No acute bleed or mass effect. [id number] senescent changes. 2. CT cervical spine: No acute trauma. Multilevel degenerative disease in osteoarthritis as described above. [facility], , 01/25/2025 3:03 PM
[2025-01-25] MEDS: SODIUM CHLORIDE 0.9% 1,000 ML IV STA ×3 (15:45→17:29)
--- NOTE | 2025-01-25 16:47 | XR ---
EXAMINATION TYPE: XR chest 2V DATE OF EXAM: 01/25/2025 3:30 PM COMPARISON: 10/23/2021 CLINICAL INDICATION: Female, 74 years old with history of fall, TECHNIQUE: XR chest 2V view(s) obtained. FINDINGS: The heart size is normal. Pacemaker overlies left chest The pulmonary vasculature is normal. The lungs are clear. IMPRESSION: 1. No acute pulmonary process. [facility], , 01/25/2025 4:44 PM
--- NOTE | 2025-01-25 16:48 | XR ---
EXAMINATION TYPE: XR pelvis AP view DATE OF EXAM: 01/25/2025 3:30 PM COMPARISON: None. CLINICAL INDICATION: Female, 74 years old with history of fall, pain TECHNIQUE: AP view(s) obtained. FINDINGS: There is a left hip prosthesis. Nonspecific bowel gas is present. There appears to be predominantly w ithin the colon Sacroiliac joints are normal. Symphysis pubis is normal. Right femoral head articulates with the acet abulum. No acute fractures are identified. IMPRESSION: 1. No acute osseous abnormality AP pelvis [facility], , 01/25/2025 4:46 PM
[2025-01-25] MEDS ORDERED: NALOXONE 0.4 MG/ML 1 ML VIAL IV PRN (17:05)
[2025-01-25 17:23] LABS: Appearance,Urine Cloudy (Clear); Bacteria,Urine Many /hpf; Bilirubin,Urine Negative (Negative); Blood,Urine Moderate (Negative); Color,Urine Yellow; Glucose,Urine (UA) Negative (Negative); Ketones,Urine 1+ (Negative); Leukocyte Esterase,Urine Large (Negative); Mucus,Urine Few /hpf; Nitrite,Urine Positive (Negative); PH, Urine 5.5 (5.0-8.0); Protein,Urine 2+ (Negative); RBC,Urine 11 /hpf (0-5); Specific Gravity,Urine 1.021 (1.001-1.035); Squamous Epithelial Cell,Urine 1 /hpf (0-4); Urobilinogen,Urine <2.0 mg/dL (<2.0); WBC,Urine 37 /hpf (0-5)
[2025-01-25] MEDS: cefTRIAXone IN SWFI 1,000 MG/10 ML SYRINGE IVP STA (18:03)
--- NOTE | 2025-01-25 19:07 | P.HPIM ---
History of Present Illness This is a pleasant 74 years old female who presents for a fall. Her neighbor called EMS for her. Also her used to take care of her but he went to longterm yesterday and he cannot take care of her anymore. And neighbor found her on the floor. As per patient the neighbor was noticing that she was not acting right lately and she looked weird. Patient states she felt few times about 6-7 times over the last 1 to 2 weeks she is falling about 3 times per week. She reports some diarrhea for about 1 to 2 weeks but no abdominal pain or vomiting. She denies specific symptoms for me like dysuria or urgency she denies chest pain or dyspnea but she has chronic cough with no phlegm. She denies headache dizziness. She had called recently with sneezing Currently she complains from abdominal pain about 2 to 2 months mild in the epigastric area. She has also left hip pain more than 1 month ago. Her right arm feels weak for about 2 months and her left leg feels weak for about 2-1/2 months Patient is afebrile She is tachycardic with heart rate 1 26-114 Blood pressure is acceptable She has leukocytosis of 26.9, baseline about 10-19. Liver enzymes mildly elevated. Rest of CBC, BMP, LFT were unremarkable Urine analysis is highly suspicious for infection. Troponin is negative at 0.03. Lactic acid elevated 5.1 Creatinine kinase elevated 2105 Alcohol level is less than 10 Pelvic x-ray is negative. Chest x-ray showing no acute process CT of the head and neck is negative for acute process. Review of Systems Review of systems CONSTITUTIONAL: No fever, no malaise, HEENT: No recent visual problems or hearing problems. Denied any sore throat. CARDIOVASCULAR: No orthopnea, PND, no palpitations, no syncope. PULMONARY: No shortness of breath, no hemoptysis. GASTROINTESTINAL: no nausea, no vomiting, Normoactive bowel sounds. NEUROLOGICAL: No headaches, no numbness. HEMATOLOGICAL: Denies any bleeding or petechiae. GENITOURINARY: Denies any burning micturition, frequency, or urgency. MUSCULOSKELETAL/RHEUMATOLOGICAL: Denies any joint pain, swelling, or any muscle pain. ENDOCRINE: Denies any polyuria or polydipsia. Past Medical History Past Medical History: Coronary Artery Disease (CAD), Chest Pain / Angina, CVA/TIA, Hyperlipidemia, Hypertension, Myocardial Infarction (MD), Osteoarthritis (OA) Additional Past Medical History / Comment(s): TIA 3, SICK SINUS SYNDROME Last Myocardial Infarction Date:: unknown History of Any Multi-Drug Resistant Organisms: None Reported Past Surgical History: Section, Cholecystectomy, Heart Catheterization, Pacemaker Additional Past Surgical History / Comment(s): medronic pacemaker Past Anesthesia/Blood Transfusion Reactions: No Reported Reaction Type of Cardiac Device: Permanent Pacemaker Device Placement Date:: April 2021 Past Psychological History: No Psychological Hx Reported Smoking Status: Never smoker Past Alcohol Use History: None Reported Past Drug Use History: None Reported - Past Family History Father Family Medical History: Diabetes Mellitus, Myocardial Infarction (MD) Sister(s) Additional Family Medical History / Comment(s): enlarged heart at age 50 Medications and Allergies Home Medications Medication Instructions Recorded Confirmed Type Metoprolol Tartrate [Lopressor] 25 mg PO DAILY 10/19/21 01/25/25 History Zolpidem [Ambien] 10 mg PO HS #4 tab 10/23/21 01/25/25 Rx Rosuvastatin [Crestor] 20 mg PO DAILY 01/25/25 01/25/25 History Allergies Allergy/AdvReac Type Severity Reaction Status Date / Time nitroglycerin Allergy Nausea & Verified 01/25/25 15:42 Vomiting & Diarrhea Physical Exam Vitals: Vital Signs Temp Pulse Resp BP Pulse Ox 01/25/25 15:21 114 H 18 115/72 97 01/25/25 13:32 97.1 F L 126 H 18 169/103 96 Intake and Output 01/25/25 01/25/25 01/25/25 06:59 14:59 22:59 Other: Weight 111.13 kg -GENERAL: The patient is alert and oriented x1 to place only, not in any acute distress. Well developed, well nourished. Obese HEENT: Pupils are round and equally reacting to light. EOMI. No scleral icterus. No conjunctival pallor. Normocephalic, atraumatic. No pharyngeal erythema. No thyromegaly. CARDIOVASCULAR: S1 and S2 present. No murmurs, rubs, or gallops. PULMONARY: Chest is clear to auscultation, no wheezing , no crackles. ABDOMEN: Soft, nontender, nondistended, normoactive bowel sounds. No palpable organomegaly. MUSCULOSKELETAL: No joint swelling or deformity. EXTREMITIES: No cyanosis, clubbing, or pedal edema. -NEUROLOGICAL: Cranial nerves are grossly intact. Mild left leg weakness and left hip area tenderness and mild right upper extremity weakness. Meningeal signs absent SKIN: No rashes. no petechiae. Results CBC & Chem 7: 01/25/25 14:24 01/25/25 14:24 Labs: Abnormal Lab Results - Last 24 Hours (Table) 01/25/25 01/25/25 01/25/25 Range/Units 14:24 14:24 14:24 WBC 26.9 H (3.8-10.6) k/uL Plt Count 464 H (150-450) k/uL Neutrophils # 23.7 H (1.3-7.7) k/uL Sodium 135 L (137-145) mmol/L Chloride 96 L (98-107) mmol/L Glucose 157 H (74-99) mg/dL Plasma Lactic Acid Brandyn 5.1 H* (0.7-2.0) mmol/L AST 94 H (14-36) U/L ALT 44 H (4-34) U/L Creatine Kinase 2105 H* (30-135) U/L Total Protein 8.6 H (6.3-8.2) g/dL Urine Appearance (Clear) Urine Protein (Negative) Urine Ketones (Negative) Urine Blood (Negative) Urine Nitrite (Negative) Ur Leukocyte Esterase (Negative) Urine RBC (0-5) /hpf Urine WBC (0-5) /hpf Urine Bacteria (None) /hpf Urine Mucus (None) /hpf 01/25/25 Range/Units 17:12 WBC (3.8-10.6) k/uL Plt Count (150-450) k/uL Neutrophils # (1.3-7.7) k/uL Sodium (137-145) mmol/L Chloride (98-107) mmol/L Glucose (74-99) mg/dL Plasma Lactic Acid Brandyn (0.7-2.0) mmol/L AST (14-36) U/L ALT (4-34) U/L Creatine Kinase (30-135) U/L Total Protein (6.3-8.2) g/dL Urine Appearance Cloudy H (Clear) Urine Protein 2+ H (Negative) Urine Ketones 1+ H (Negative) Urine Blood Moderate H (Negative) Urine Nitrite Positive H (Negative) Ur Leukocyte Esterase Large H (Negative) Urine RBC 11 H (0-5) /hpf Urine WBC 37 H (0-5) /hpf Urine Bacteria Many H (None) /hpf Urine Mucus Few H (None) /hpf Assessment and Plan Assessment: Acute urinary tract infection Sepsis with leukocytosis and tachycardia Rhabdomyolysis Lactic acidemia Hypertension urgency Leukocytosis on chronic problem of leukocytosis Toxic metabolic encephalopathy Weakness of the right upper extremity and left upper extremity. Could be secondary to fall. Rule out joint abnormality, dislocation or fracture. Consider central causes Plan: Continue with ceftriaxone Follow-up Urine culture Continue with normal saline 100 mL/h Ultrasound of the kidney Follow-up lactic acid and creatinine kinase
[2025-01-25] MEDS: SODIUM CHLORIDE 0.9% 1,000 ML IV SCH (19:16)
[2025-01-25] MEDS: ASPIRIN 81 MG PO SCH (19:17)
--- NOTE | 2025-01-25 21:01 | US ---
EXAMINATION TYPE: US renals and bladder DATE OF EXAM: 01/25/2025 COMPARISON: US abdomen 02/22/24 CLINICAL INDICATION: Female, 74 years old with history of uti; UTI. Patient has catheter TECHNIQUE: Grayscale imaging of the bilateral kidneys and urinary bladder: FINDINGS: EXAM MEASUREMENTS: Right Kidney: 10.1 x 5.6 x 4.6 cm Left Kidney: 9.4 x 4.5 x 4.8 cm slightly limited due to patient body habitus and patient unable to roll rld/lld Right Kidney: wnl as best seen Left Kidney: wnl as best seen Bladder: unable to visualize, patient has catheter Bilateral Jets seen: no Suboptimal study. Cortical thinning bilaterally. There is no evidence for hydronephrosis at this poin t in time. No nephrolithiasis is seen. No masses are identified. Bladder is decompressed by Deal c atheter. IMPRESSION: Suboptimal study without hydronephrosis seen bilaterally. [facility], , 01/25/2025 8:59 PM
--- NOTE | 2025-01-25 21:19 | XR ---
EXAMINATION TYPE: XR Hip Complete LT DATE OF EXAM: 01/25/2025 8:09 PM COMPARISON: Pelvic x-ray earlier today. CLINICAL INDICATION: Female, 74 years old with history of fall and weakness, TECHNIQUE: AP and frogleg views of the left left hip are obtained. FINDINGS: There is no acute fracture/dislocation evident in the left hip prosthesis. Metallic hardw are remains stable and satisfactory in position. The overlying soft tissue appears unremarkable. IMPRESSION: There is no acute fracture or dislocation in the left hip metallic prosthesis. [facility], , 01/25/2025 9:17 PM
--- NOTE | 2025-01-25 21:20 | XR ---
EXAMINATION TYPE: XR shoulder complete LT DATE OF EXAM: 01/25/2025 8:09 PM COMPARISON: None. CLINICAL INDICATION: Female, 74 years old with history of fall and weakness, pain TECHNIQUE: Three views of the left shoulder are obtained. FINDINGS: Demineralization is present. There is no acute fracture/dislocation evident in the left sh oulder. Moderate narrowing with mild/moderate spurring at the acromioclavicular joint. Some narrowing at the glenohumeral joint is present. The visualized ribs are intact. Overlying pacemaker device is partially imaged. IMPRESSION: There is no acute fracture or dislocation in the left shoulder. [facility], , 01/25/2025 9:18 PM
[2025-01-26 07:13] LABS: Basophils # (A) 0.1 k/uL (0-0.2); Basophils % (A) 0 %; Eosinophils # (A) 0.2 k/uL (0-0.7); Eosinophils % (A) 1 %; HCT 42.2 % (34.0-46.0); HGB 13.3 gm/dL (11.4-16.0); Hypochromasia Slight; Lymphocytes # (A) 2.9 k/uL (1.0-4.8); Lymphocytes % (A) 17 %; MCH 28.6 pg (25.0-35.0); MCHC 31.4 g/dL (31.0-37.0); MCV 91.3 fL (80.0-100.0); Mean Platelet Volume 7.3; Monocytes # (A) 0.9 k/uL (0-1.0); Monocytes % (A) 5 %; Neutrophils % (A) 76 %; Platelet Count 401 k/uL (150-450); RBC 4.63 m/uL (3.80-5.40); RDW 13.6 % (11.5-15.5); WBC 17.2 k/uL (3.8-10.6)
[2025-01-26 07:31] LABS: ALT 43 U/L (4-34); AST 81 U/L (14-36); African American GFR (CKD) 72 (>60 ml/min/1.73 sqM); Albumin 3.7 g/dL (3.5-5.0); Alkaline Phosphatase 100 U/L (38-126); Anion Gap 12 mmol/L; Bilirubin, Delta 0.3 mg/dL (0.0-0.2); Bilirubin,Unconjugated 0.7 mg/dL (0.0-1.1); Blood Urea Nitrogen 13 mg/dL (7-17); Calcium 8.9 mg/dL (8.4-10.2); Carbon Dioxide 21 mmol/L (22-30); Chloride 104 mmol/L (98-107); Glucose 114 mg/dL (74-99); Non-African American GFR(CKD) 62 (>60 ml/min/1.73 sqM); Potassium 4.1 mmol/L (3.5-5.1); Sodium 137 mmol/L (137-145); Total Protein 7.1 g/dL (6.3-8.2)
[2025-01-26 07:43] LABS: Creatine Kinase 2287 U/L (30-135)
--- NOTE | 2025-01-26 09:42 | P.PN ---
Subjective This is a pleasant 74 years old female who presents for a fall. Her neighbor called EMS for her. Also her used to take care of her but he went to senior care yesterday and he cannot take care of her anymore. And neighbor found her on the floor. As per patient the neighbor was noticing that she was not acting right lately and she looked weird. Patient states she felt few times about 6-7 times over the last 1 to 2 weeks she is falling about 3 times per week. She reports some diarrhea for about 1 to 2 weeks but no abdominal pain or vomiting. She denies specific symptoms for me like dysuria or urgency she denies chest pain or dyspnea but she has chronic cough with no phlegm. She denies headache dizziness. She had called recently with sneezing Currently she complains from abdominal pain about 2 to 2 months mild in the epigastric area. She has also left hip pain more than 1 month ago. Her right arm feels weak for about 2 months and her left leg feels weak for about 2-1/2 months Patient is afebrile She is tachycardic with heart rate 1 26-114 Blood pressure is acceptable She has leukocytosis of 26.9, baseline about 10-19. Liver enzymes mildly elevated. Rest of CBC, BMP, LFT were unremarkable Urine analysis is highly suspicious for infection. Troponin is negative at 0.03. Lactic acid elevated 5.1 Creatinine kinase elevated 2105 Alcohol level is less than 10 Pelvic x-ray is negative. Chest x-ray showing no acute process CT of the head and neck is negative for acute process. 01/23 Patient is more awake, still little bit confused and to the surrounding She denies any pain, she is asking if she can go home today. She complains from dysuria and Deal catheter in place. Urine culture is pending and currently on Rocephin. Renal ultrasound showing no hydronephrosis Patient mentation slightly improved. However she still complains from weakness in her both right upper extremity and left lower extremities. Patient when I asked her today the duration she states about a year, although yesterday she mentioned 2 months and 2 months and a half. Then patient states she is not sure. Also complains from some tingling in her both fingers and toes on both sides. No headache dizziness blurred vision or slurred speech. She remains on IV fluid normal saline 100 mL/h. Creatinine kinase looks the same to 287. Liver enzymes only slightly better. Leukocytosis significantly improved down to 17 which is close to her baseline. Tachycardia is also improving and patient is afebrile patient states that she has pacemaker in her heart for about 10 years but she denies any other mental Review of systems CONSTITUTIONAL: No fever, no malaise, no fatigue. HEENT: No recent visual problems or hearing problems. Denied any sore throat. CARDIOVASCULAR: No orthopnea, PND, no palpitations, no syncope. PULMONARY: No shortness of breath, no cough, no hemoptysis. GASTROINTESTINAL: No diarrhea, no nausea, no vomiting, no abdominal pain. Normoactive bowel sounds. GENITOURINARY: Denies any burning micturition, frequency, or urgency. Active Medications Generic Name Dose Route Start Last Admin Trade Name Freq PRN Reason Stop Dose Admin Acetaminophen 650 mg 01/25/25 17:05 Acetaminophen Tab 325 Mg Tab PO Q6HR PRN Mild Pain or Fever > 100.5 Aspirin 81 mg 01/25/25 19:00 01/26/25 08:36 Aspirin 81 Mg PO 81 mg DAILY CATHY Administration Sodium Chloride 1,000 mls @ 100 mls/hr 01/25/25 19:00 01/26/25 06:05 Saline 0.9% IV Not Given .Q10H CATHY Ceftriaxone Sodium 2 gm/ 50 mls @ 100 mls/hr 01/26/25 09:00 01/26/25 08:35 Sodium Chloride IVPB 100 mls/hr Q24HR CATHY Administration Protocol Morphine Sulfate 4 mg 01/25/25 17:05 Morphine Sulfate 4 Mg/Ml Syringe IV Q4HR PRN Severe Pain (Scale 7 to 10) Naloxone HCl 0.2 mg 01/25/25 17:05 Naloxone 0.4 Mg/Ml 1 Ml Vial IV Q2M PRN Opioid Reversal Objective - Vital Signs Vital signs: Vital Signs Temp 97.1 F L 01/25/25 13:32 Pulse 105 H 01/26/25 07:57 Resp 16 01/26/25 07:57 BP 144/84 01/26/25 07:57 Pulse Ox 96 01/26/25 07:57 FiO2 Intake & Output 01/25/25 01/26/25 01/26/25 18:59 06:59 18:59 Weight 111.13 kg - Exam -GENERAL: The patient is alert and oriented x1 to place only, not in any acute d istress. Well developed, well nourished. Obese HEENT: Pupils are round and equally reacting to light. EOMI. No scleral icterus. No conjunctival pallor. Normocephalic, atraumatic. No pharyngeal erythema. No thyromegaly. CARDIOVASCULAR: S1 and S2 present. No murmurs, rubs, or gallops. PULMONARY: Chest is clear to auscultation, no wheezing , no crackles. Deal catheter in place with mild suprapubic tenderness -ABDOMEN: Soft, nontender, nondistended, normoactive bowel sounds. No palpable organomegaly. MUSCULOSKELETAL: No joint swelling or deformity. EXTREMITIES: No cyanosis, clubbing, or pedal edema. -NEUROLOGICAL: Cranial nerves are grossly intact. Mild left leg weakness and left hip area tenderness and mild right upper extremity weakness. Meningeal signs absent SKIN: No rashes. no petechiae. - Labs CBC & Chem 7: 01/26/25 07:00 01/26/25 07:00 Labs: Abnormal Lab Results - Last 24 Hours (Table) 01/25/25 01/25/25 01/25/25 Range/Units 14:24 14:24 14:24 WBC 26.9 H (3.8-10.6) k/uL Plt Count 464 H (150-450) k/uL Neutrophils # 23.7 H (1.3-7.7) k/uL Sodium 135 L (137-145) mmol/L Chloride 96 L (98-107) mmol/L Carbon Dioxide (22-30) mmol/L Glucose 157 H (74-99) mg/dL Plasma Lactic Acid Brandyn 5.1 H* (0.7-2.0) mmol/L Delta Bilirubin (0.0-0.2) mg/dL AST 94 H (14-36) U/L ALT 44 H (4-34) U/L Creatine Kinase 2105 H* (30-135) U/L Total Protein 8.6 H (6.3-8.2) g/dL Urine Appearance (Clear) Urine Protein (Negative) Urine Ketones (Negative) Urine Blood (Negative) Urine Nitrite (Negative) Ur Leukocyte Esterase (Negative) Urine RBC (0-5) /hpf Urine WBC (0-5) /hpf Urine Bacteria (None) /hpf Urine Mucus (None) /hpf 01/25/25 01/25/25 01/26/25 Range/Units 17:12 18:27 07:00 WBC 17.2 H (3.8-10.6) k/uL Plt Count (150-450) k/uL Neutrophils # 13.0 H (1.3-7.7) k/uL Sodium (137-145) mmol/L Chloride (98-107) mmol/L Carbon Dioxide (22-30) mmol/L Glucose (74-99) mg/dL Plasma Lactic Acid Brandyn 2.6 H* (0.7-2.0) mmol/L Delta Bilirubin (0.0-0.2) mg/dL AST (14-36) U/L ALT (4-34) U/L Creatine Kinase (30-135) U/L Total Protein (6.3-8.2) g/dL Urine Appearance Cloudy H (Clear) Urine Protein 2+ H (Negative) Urine Ketones 1+ H (Negative) Urine Blood Moderate H (Negative) Urine Nitrite Positive H (Negative) Ur Leukocyte Esterase Large H (Negative) Urine RBC 11 H (0-5) /hpf Urine WBC 37 H (0-5) /hpf Urine Bacteria Many H (None) /hpf Urine Mucus Few H (None) /hpf 01/26/25 Range/Units 07:00 WBC (3.8-10.6) k/uL Plt Count (150-450) k/uL Neutrophils # (1.3-7.7) k/uL Sodium (137-145) mmol/L Chloride (98-107) mmol/L Carbon Dioxide 21 L (22-30) mmol/L Glucose 114 H (74-99) mg/dL Plasma Lactic Acid Brandyn (0.7-2.0) mmol/L Delta Bilirubin 0.3 H (0.0-0.2) mg/dL AST 81 H (14-36) U/L ALT 43 H (4-34) U/L Creatine Kinase 2287 H* (30-135) U/L Total Protein (6.3-8.2) g/dL Urine Appearance (Clear) Urine Protein (Negative) Urine Ketones (Negative) Urine Blood (Negative) Urine Nitrite (Negative) Ur Leukocyte Esterase (Negative) Urine RBC (0-5) /hpf Urine WBC (0-5) /hpf Urine Bacteria (None) /hpf Urine Mucus (None) /hpf Assessment and Plan Assessment: Acute urinary tract infection Sepsis with leukocytosis and tachycardia Rhabdomyolysis Weakness and distal toes/fingers numbness of both right upper extremity and left lower extremity, looks chronic but patient is inconsistent Forgetfulness possible of elements of vascular dementia and Alzheimer dementia, needs evaluation as an outpatient Lactic acidemia, improved Hypertension urgency Leukocytosis on chronic problem of leukocytosis Toxic metabolic encephalopathy Weakness of the right upper extremity and left upper extremity. Could be secondary to fall. Rule out joint abnormality, dislocation or fracture. Consider central causes Plan: Continue with ceftriaxone Follow-up Urine culture Continue with normal saline 100 mL/h Ultrasound of the kidney is reviewed Follow-up creatinine kinase Nephrology team consult Continue with aspirin, and Lipitor Check carotid duplex Labs and medication were reviewed.. Continue same treatment. Continue with symptomatic treatment. Resume home medication. Monitor labs and vitals. DVT and GI prophylaxis. Further recommendations as per clinical course of the patient DVT prophylaxis: Subcutaneous heparin GI Prophylaxis: Pepcid PT/OT: Pending Prognosis is guarded
--- NOTE | 2025-01-26 11:13 | P.NPCON ---
History of Present Illness - Reason for Consult acute renal failure - History of Present Illness Reason for consultation: Rhabdomyolysis History of present illness: Patient is a 74-year-old female seen in renal consultation for rhabdomyolysis. Patient was seen and examined in the emergency room. Patient was found down by neighbor and was subsequently brought to the hospital. Patient states her is currently in intermediate and she was found down at her house by her neighbor. Patient believes she missed the couch and fell on the floor and slept there. CK level was 2105 on admission and is 2287 today. She did receive 2 L of normal saline and is currently receiving normal saline at 100 cc an hour. She was on a statin outpatient which is currently held. She currently has a Deal catheter. Denies personal history of kidney disease. Denies history of diabetes or coronary artery disease. No vomiting or diarrhea. Patient says she has a pacemaker. She denies use of nonsteroidals on a regular basis. Vital signs are stable. General: No acute distress. HEENT: Head exam is unremarkable. Forehead bruise noted. LUNGS: No audible rhonchi or wheezes. HEART: Rate and Rhythm are regular. ABDOMEN: Nontender. EXTREMITITES: No edema. Past Medical History Past Medical History: Coronary Artery Disease (CAD), Chest Pain / Angina, CVA/TIA, Hyperlipidemia, Hypertension, Myocardial Infarction (NH), Osteoarthritis (OA) Additional Past Medical History / Comment(s): TIA 3, SICK SINUS SYNDROME Last Myocardial Infarction Date:: unknown History of Any Multi-Drug Resistant Organisms: None Reported Past Surgical History: Section, Cholecystectomy, Heart Catheterization, Pacemaker Additional Past Surgical History / Comment(s): medronic pacemaker Past Anesthesia/Blood Transfusion Reactions: No Reported Reaction Type of Cardiac Device: Permanent Pacemaker Device Placement Date:: April 2021 Past Psychological History: No Psychological Hx Reported Smoking Status: Never smoker Past Alcohol Use History: None Reported Past Drug Use History: None Reported - Past Family History Father Family Medical History: Diabetes Mellitus, Myocardial Infarction (NH) Sister(s) Additional Family Medical History / Comment(s): enlarged heart at age 50 Medications and Allergies Home Medications Medication Instructions Recorded Confirmed Type Metoprolol Tartrate [Lopressor] 25 mg PO DAILY 10/19/21 01/25/25 History Zolpidem [Ambien] 10 mg PO HS #4 tab 10/23/21 01/25/25 Rx Rosuvastatin [Crestor] 20 mg PO DAILY 01/25/25 01/25/25 History Allergies Allergy/AdvReac Type Severity Reaction Status Date / Time nitroglycerin Allergy Nausea & Verified 01/25/25 15:42 Vomiting & Diarrhea Physical Exam Vitals: Vital Signs Temp Pulse Resp BP Pulse Ox 01/26/25 11:03 109 H 18 160/72 95 01/26/25 07:57 105 H 16 144/84 96 01/26/25 06:39 109 H 18 135/96 98 01/26/25 02:32 109 H 18 144/89 99 01/26/25 01:20 108 H 21 98 01/26/25 00:38 112 H 18 133/79 99 01/25/25 15:21 114 H 18 115/72 97 01/25/25 13:32 97.1 F L 126 H 18 169/103 96 Results - Lab Results Most recent lab results Calcium 8.9 mg/dL (8.4-10.2) 01/26/25 07:00 Magnesium 1.7 mg/dL (1.6-2.3) 01/25/25 14:24 01/26/25 07:00 01/26/25 07:00 Assessment and Plan Plan: Assessment: 1. Rhabdomyolysis secondary to fall/immobility. Also on statin outpatient. CK level 2287 today. 2. Benign hypertension. 3. Pyuria maintained on antibiotics. Plan: Maintain normal saline. Repeat CK level in the morning. Continue to hold statin for now. Resume home dose metoprolol. Thank you for the consultation. I will continue to follow the patient with you during her hospital stay.
[2025-01-26] MEDS: METOPROLOL TARTRATE 25 MG TAB PO SCH (12:25)
[2025-01-26] MEDS: HEPARIN SODIUM,PORCINE 5,000 UNIT/ML 1 ML VIAL SQ SCH (12:26)
--- NOTE | 2025-01-26 21:46 | US ---
EXAMINATION TYPE: US carotid duplex BILAT DATE OF EXAM: 01/26/2025 COMPARISON: NONE CLINICAL INDICATION: Female, 74 years old with history of stroke w/u; stroke. patient seeing things Additional History: .... TECHNIQUE: Grayscale, color Doppler and spectral Doppler evaluation of the bilateral carotid systems and vertebral arteries. Indirect Doppler criteria was utilized. FINDINGS: EXAM MEASUREMENTS: RIGHT: Peak Systolic Velocity (PSV) cm/sec ----- Right CCA: 92.4 ----- Right ICA: 155.0 ----- Right ECA: 162 ICA/CCA ratio: 1.7 RIGHT: End Diastole cm/sec ----- Right CCA: 18.1 ----- Right ICA: 17.5 ----- Right ECA: 25.9 LEFT: Peak Systolic Velocity (PSV) cm/sec ----- Left CCA: 114.0 ----- Left ICA: 120.0 ----- Left ECA: 180.0 ICA/CCA ratio: 1.05 LEFT: End Diastole cm/sec ----- Left CCA: 24.1 ----- Left ICA: 21.0 ----- Left ECA: 17.5 VERTEBRALS (direction of flow): Right Vertebral: unable to visualize Left Vertebral: unable to visualize RECREATIONAL THERAPIST NOTES: VERY limited examination due to patient neck girth, tortuosity and depth of vessel s. distal ICA unable to visualize bilaterally. plaque seen bilateral bulbs. elevated velocities seen within the right bulb (216) and prox ica (155) Color Doppler imaging shows patency with blood flow throughout the carotid artery. Spectral waveforms are within normal limits. IMPRESSION: 1. Moderate narrowing of the right internal carotid artery between 50 and 69%. 2. Mild narrowing of the left internal carotid artery of less than 50%. 3. Difficulty with the examination due to tortuosity and positioning of the vessels. 4. There may be some focal stenosis of the right carotid bulb with a markedly elevated velocity of 21 6 cm/s. Consider additional workup. Criteria for Assigning % of Stenosis / Diameter reduction (Estimation based on the indirect measurements of the internal carotid artery velocities (ICA PSV). 1. Normal (no stenosis)=ICA PSV < 125 cm/s: ratio < 2.0: ICA EDV<40 cm/s. 2. Less than 50% stenosis=ICA PSV < 125 cm/s: ratio < 2.0: ICA EDV<40 cm/s. 3. 50 to 69% stenosis=ICA PSV of 125 to 230 cm/s: ration 2.0 ? 4.0: ICA EDV 40-100 cm/s. 4. Greater than 70% stenosis to near occlusion= ICA PSV > 230 cm/s: ratio > 4.0: ICA EDV > 100 cm/s. 5. Near occlusion= ICA PSV velocities may be low or undetectable: variable ratio and ICA EDV. 6. Total occlusion=unable to detect flow. [facility], , 01/26/2025 9:44 PM
[2025-01-26] MEDS: ATORVASTATIN 40 MG TAB PO SCH (23:23)
[2025-01-26] MEDS: FAMOTIDINE 20 MG/2 ML VIAL IV SCH (23:23)
[2025-01-26] MEDS: ACETAMINOPHEN TAB 325 MG TAB PO PRN (23:26)
[2025-01-27 07:55] LABS: African American GFR (CKD) 84 (>60 ml/min/1.73 sqM); Anion Gap 8 mmol/L; Blood Urea Nitrogen 14 mg/dL (7-17); Calcium 8.7 mg/dL (8.4-10.2); Carbon Dioxide 22 mmol/L (22-30); Chloride 107 mmol/L (98-107); Glucose 86 mg/dL (74-99); Magnesium 2.1 mg/dL (1.6-2.3); Non-African American GFR(CKD) 73 (>60 ml/min/1.73 sqM); Potassium 4.1 mmol/L (3.5-5.1); Sodium 137 mmol/L (137-145)
[2025-01-27 08:03] LABS: Creatine Kinase 2515 U/L (30-135)
--- NOTE | 2025-01-27 09:07 | P.PN ---
Subjective This is a pleasant 74 years old female who presents for a fall. Her neighbor called EMS for her. Also her used to take care of her but he went to [facility] yesterday and he cannot take care of her anymore. And neighbor found her on the floor. As per patient the neighbor was noticing that she was not acting right lately and she looked weird. Patient states she felt few times about 6-7 times over the last 1 to 2 weeks she is falling about 3 times per week. She reports some diarrhea for about 1 to 2 weeks but no abdominal pain or vomiting. She denies specific symptoms for me like dysuria or urgency she denies chest pain or dyspnea but she has chronic cough with no phlegm. She denies headache dizziness. She had called recently with sneezing Currently she complains from abdominal pain about 2 to 2 months mild in the epigastric area. She has also left hip pain more than 1 month ago. Her right arm feels weak for about 2 months and her left leg feels weak for about 2-1/2 months Patient is afebrile She is tachycardic with heart rate 1 26-114 Blood pressure is acceptable She has leukocytosis of 26.9, baseline about 10-19. Liver enzymes mildly elevated. Rest of CBC, BMP, LFT were unremarkable Urine analysis is highly suspicious for infection. Troponin is negative at 0.03. Lactic acid elevated 5.1 Creatinine kinase elevated 2105 Alcohol level is less than 10 Pelvic x-ray is negative. Chest x-ray showing no acute process CT of the head and neck is negative for acute process. 01/23 Patient is more awake, still little bit confused and to the surrounding She denies any pain, she is asking if she can go home today. She complains from dysuria and Deal catheter in place. Urine culture is pending and currently on Rocephin. Renal ultrasound showing no hydronephrosis Patient mentation slightly improved. However she still complains from weakness in her both right upper extremity and left lower extremities. Patient when I asked her today the duration she states about a year, although yesterday she mentioned 2 months and 2 months and a half. Then patient states she is not sure. Also complains from some tingling in her both fingers and toes on both sides. No headache dizziness blurred vision or slurred speech. She remains on IV fluid normal saline 100 mL/h. Creatinine kinase looks the same to 287. Liver enzymes only slightly better. Leukocytosis significantly improved down to 17 which is close to her baseline. 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 However she still have generalized weakness. She still have weakness in the right upper extremity with limitation in moving her arm above her head. Little discomfort in her right shoulder. Will check shoulder and cervical spine chest x-ray.. Also she is complaining from left lower leg weakness. Patient was little bit inconsistent in her history, initially said that this is for 2 months, then yesterday said it is for 1 year and today she said it has been going on for 3 weeks. However patient is better historian today. No abdominal pain suprapubic pain and tenderness. Blood culture was positive with Staph epidermidis. This could be contamination. Patient already on ceftriaxone. Will consult infectious disease team. Creatinine kinase still elevated to 5.5. Rest of BMP and magnesium are within the reference range. Rest of labs pending Urine cultures growing gram-negative bacilli Carotid Doppler: Moderate narrowing of the right internal carotid artery between 50 and 69%. Mild narrowing of the left internal carotid artery of less than 50%. There may be some focal stenosis of the right carotid bulb with mild elevated velocity of 216 cm per S consider additional workup Review of systems CONSTITUTIONAL: No fever, no malaise, no fatigue. HEENT: No recent visual problems or hearing problems. Denied any sore throat. CARDIOVASCULAR: No orthopnea, PND, no palpitations, no syncope. PULMONARY: No shortness of breath, no cough, no hemoptysis. GASTROINTESTINAL: No diarrhea, no nausea, no vomiting, no abdominal pain. Normoactive bowel sounds. GENITOURINARY: Denies any burning micturition, frequency, or urgency. Active Medications Generic Name Dose Route Start Last Admin Trade Name Freq PRN Reason Stop Dose Admin Acetaminophen 650 mg 01/25/25 17:05 01/26/25 23:26 Acetaminophen Tab 325 Mg Tab PO 650 mg Q6HR PRN Administration Mild Pain or Fever > 100.5 Aspirin 81 mg 01/25/25 19:00 01/26/25 08:36 Aspirin 81 Mg PO 81 mg DAILY CATHY Administration Atorvastatin Calcium 40 mg 01/26/25 21:00 01/26/25 23:23 Atorvastatin 40 Mg Tab PO 40 mg HS CATHY Administration Famotidine 20 mg 01/26/25 21:00 01/26/25 23:23 Famotidine 20 Mg/2 Ml Vial IV 20 mg Q12HR CATHY Administration Heparin Sodium (Porcine) 5,000 unit 01/26/25 10:00 01/26/25 23:28 Heparin Sodium,Porcine 5,000 Unit/Ml 1 Ml Vial SQ 5,000 unit Q8HR CATHY Administration Sodium Chloride 1,000 mls @ 100 mls/hr 01/25/25 19:00 01/26/25 23:29 Saline 0.9% IV 100 mls/hr .Q10H CATHY Administration Ceftriaxone Sodium 2 gm/ 50 mls @ 100 mls/hr 01/26/25 09:00 01/26/25 08:35 Sodium Chloride IVPB 100 mls/hr Q24HR CATHY Administration Protocol Metoprolol Tartrate 25 mg 01/26/25 11:15 01/26/25 12:25 Metoprolol Tartrate 25 Mg Tab PO 25 mg DAILY CATHY Administration Morphine Sulfate 4 mg 01/25/25 17:05 Morphine Sulfate 4 Mg/Ml Syringe IV Q4HR PRN Severe Pain (Scale 7 to 10) Naloxone HCl 0.2 mg 01/25/25 17:05 Naloxone 0.4 Mg/Ml 1 Ml Vial IV Q2M PRN Opioid Reversal Objective - Vital Signs Vital signs: Vital Signs Temp 98.3 F 01/27/25 03:03 Pulse 80 01/27/25 03:03 Resp 18 01/27/25 03:03 BP 142/81 01/27/25 03:03 Pulse Ox 97 01/27/25 03:03 FiO2 Intake & Output 01/26/25 01/27/25 01/27/25 18:59 06:59 18:59 Intake Total 120 Output Total 0 Balance 0 120 Weight 111.13 kg 107.5 kg Intake: Oral 120 Output: Urine 0 Other: Voiding Method Indwelling Catheter - Exam -GENERAL: The patient is alert and oriented x1 to place only, not in any acute distress. Well developed, well nourished. Obese HEENT: Pupils are round and equally reacting to light. EOMI. No scleral icterus. No conjunctival pallor. Normocephalic, atraumatic. No pharyngeal erythema. No thyromegaly. CARDIOVASCULAR: S1 and S2 present. No murmurs, rubs, or gallops. PULMONARY: Chest is clear to auscultation, no wheezing , no crackles. Deal ca theter in place with mild suprapubic tenderness -ABDOMEN: Soft, nontender, nondistended, normoactive bowel sounds. No palpable organomegaly. MUSCULOSKELETAL: No joint swelling or deformity. EXTREMITIES: No cyanosis, clubbing, or pedal edema. -NEUROLOGICAL: Cranial nerves are grossly intact. Mild left leg weakness and left hip area tenderness and mild right upper extremity weakness. Meningeal signs absent SKIN: No rashes. no petechiae. - Labs CBC & Chem 7: 01/26/25 07:00 01/27/25 06:24 Labs: Abnormal Lab Results - Last 24 Hours (Table) 01/27/25 Range/Units 06:24 Creatine Kinase 2515 H* (30-135) U/L Microbiology - Last 24 Hours (Table) 01/25/25 17:12 Urine Culture - Preliminary Urine,Voided Gram Neg Bacilli 01/25/25 17:59 Blood Culture Gram Stain - Preliminary Blood Blood Culture - Preliminary Molecular ID Assessment and Plan Assessment: Acute urinary tract infection Sepsis with leukocytosis and tachycardia Rhabdomyolysis Bacteremia with Staph epidermidis, rule out contamination Right internal carotid artery stenosis between 50 to 69% with focal stenosis of the right carotid bulb Weakness and distal toes/fingers numbness of both right upper extremity and left lower extremity, looks chronic but patient is inconsistent Forgetfulness possible of elements of vascular dementia and Alzheimer dementia, needs evaluation as an outpatient Lactic acidemia, improved Hypertension urgency Leukocytosis on chronic problem of leukocytosis Toxic metabolic encephalopathy Weakness of the right upper extremity and left upper extremity. Could be secondary to fall. Rule out joint abnormality, dislocation or fracture. Consider central causes Plan: Continue with ceftriaxone Follow-up Urine culture Continue with normal saline 100 mL/h Ultrasound of the kidney is reviewed Follow-up creatinine kinase Nephrology team consult Continue with aspirin, and Lipitor We will consult neurology service for her limb weakness. Right shoulder and cervical spine x-ray Labs and medication were reviewed.. Continue same treatment. Continue with symptomatic treatment. Resume home medication. Monitor labs and vitals. DVT and GI prophylaxis. Further recommendations as per clinical course of the patient DVT prophylaxis: Subcutaneous heparin GI Prophylaxis: Pepcid PT/OT: Pending Prognosis is guarded
--- NOTE | 2025-01-27 09:53 | XR ---
EXAMINATION TYPE: XR shoulder complete RT DATE OF EXAM: 01/27/2025 9:41 AM COMPARISON: None. CLINICAL INDICATION: Female, 74 years old with history of shoulder pain, pain TECHNIQUE: Three views of the right shoulder are obtained. FINDINGS: Osseous structures are demineralized. There is no acute fracture/dislocation evident in th e right shoulder. Surgical change or healed proximal right humeral fracture is partially imaged. Th ere is severe narrowing at the acromioclavicular joint. There is significant narrowing of the glenoh umeral joint. The visualized ribs are intact. Overlying clothing material is present. IMPRESSION: As above. [facility], , 01/27/2025 9:50 AM
--- NOTE | 2025-01-27 09:55 | XR ---
EXAMINATION TYPE: XR cervical spine limited DATE OF EXAM: 01/27/2025 9:41 AM COMPARISON: Cervical spine CT January 25, 2025. CLINICAL INDICATION: Female, 74 years old with history of shoulder pain, pain TECHNIQUE: Frontal, lateral, swimmers, and open mouth view of the cervical spine are obtained. FINDINGS: Osseous structures are demineralized. The cervical spine is visualized in its entirety from C1 thru the top of T1 level, loss of normal cervical curvature is redemonstrated. Persistent grade 1 anterolisthesis C3 on C4. The pre-vertebral soft tissue appears within normal limits. The C1-C2 ar ticulation is within normal limits on the open mouth view. Vertebral body heights are maintained. Per sistent moderate to severe disc space narrowing at C5-C6 and C6-C7 level. Overlying soft tissue is un remarkable. IMPRESSION: As above. [facility], , 01/27/2025 9:53 AM
--- NOTE | 2025-01-27 10:30 | P.PN ---
Subjective Patient is seen in follow-up for rhabdomyolysis. CK level 2515 today. Maintained on IV fluids. Has Deal catheter but being removed today. Wants to go home. Vital signs are stable. General: No acute distress. HEENT: Head exam is unremarkable. LUNGS: No audible rhonchi or wheezes. HEART: Rate and Rhythm are regular. ABDOMEN: Nontender. EXTREMITITES: No edema. Objective - Vital Signs Vital signs: Vital Signs Temp 98.3 F 01/27/25 03:03 Pulse 80 01/27/25 03:03 Resp 18 01/27/25 03:03 BP 142/81 01/27/25 03:03 Pulse Ox 97 01/27/25 03:03 FiO2 Intake & Output 01/26/25 01/27/25 01/27/25 18:59 06:59 18:59 Intake Total 120 Output Total 0 Balance 0 120 Weight 111.13 kg 107.5 kg Intake: Oral 120 Output: Urine 0 Other: Voiding Method Indwelling Catheter # Bowel Movements 1 - Labs CBC & Chem 7: 01/26/25 07:00 01/27/25 06:24 Labs: Abnormal Lab Results - Last 24 Hours (Table) 01/27/25 Range/Units 06:24 Creatine Kinase 2515 H* (30-135) U/L Microbiology - Last 24 Hours (Table) 01/25/25 17:59 Blood Culture Gram Stain - Preliminary Blood Blood Culture - Preliminary Coagulase Negative Staph Molecular ID 01/25/25 17:12 Urine Culture - Preliminary Urine,Voided Gram Neg Bacilli Assessment and Plan Plan: Assessment: 1. Rhabdomyolysis secondary to fall/immobility. Also on Lipitor. CK level 2515 today. 2. Benign hypertension. 3. Gram-negative UTI maintained on antibiotics. Plan: Maintain normal saline. Repeat CK level in the morning. Stop statin. Follow-up echocardiogram.
--- NOTE | 2025-01-27 13:03 | CA ---
Transthoracic Echo Report Name: Mikaela Chapin Age: 74 Gender: F : 1950 Exam Date: 01/27/2025 07:44 Exam Location: [place] [facility] Ht (in): 67 Wt (lb): 245 Ordering Physician: Dragan Oconnell MD Attending/Referring Phys: [id number], Anish Cycle Specialist Jordan Olmedo, [facility] Procedure CPT: Indications: Chest Pain Cardiac Hx: Pacemaker Technical Quality: Technically difficult study Contrast 1: Total Dose (mL): Contrast 2: Total Dose (mL): MEASUREMENTS (Male / Female) Normal Values 2D ECHO LV Diastolic Diameter PLAX 4.0 cm 4.2 - 5.9 / 3.9 - 5.3 cm LV Systolic Diameter PLAX 2.5 cm IVS Diastolic Thickness 0.9 cm 0.6 - 1.0 / 0.6 - 0.9 cm LVPW Diastolic Thickness 0.9 cm 0.6 - 1.0 / 0.6 - 0.9 cm LV Relative Wall Thickness 0.5 RV Internal Dim ED PLAX 1.9 cm LA Systolic Diameter LX 4.7 cm 3.0 - 4.0 / 2.7 - 3.8 cm LV Diastolic Volume MOD 4C 107.6 cm??? LV Systolic Volume MOD 4C 50.1 cm??? LV Ejection Fraction MOD 4C 53.5 % LV Cardiac Index MOD 4C 2285.5 cm???/min???m??? LV Diastolic Length 4C 8.1 cm LV Systolic Length 4C 6.8 cm LA Volume 70.6 cm??? 18 - 58 / 22 - 52 cm??? LA Volume Index 30.2 cm???/m??? 16 - 28 cm???/m??? DOPPLER MV Peak Velocity 112.8 cm/s MV Peak Gradient 5.1 mmHg MV Mean Velocity 81.0 cm/s MV Mean Gradient 2.9 mmHg MV Velocity Time Integral 18.5 cm MV Area PHT 5.3 cm??? Mitral E Point Velocity 105.8 cm/s Mitral A Point Velocity 99.0 cm/s Mitral E to A Ratio 1.1 MV Deceleration Time 144.0 ms TR Peak Velocity 236.7 cm/s TR Peak Gradient 22.4 mmHg FINDINGS Left Ventricle Left ventricular ejection fraction is estimated at 60-65%. No obvious regional wall motion abnormalities. Right Ventricle Normal right ventricular size . Unable to estimate the right ventricular systolic pressure. Right Atrium Normal right atrial size. Left Atrium Mildly increased left atrial volume. Mitral Valve Mitral annular calcification. Mitral valve thickened. No mitral stenosis. No mitral regurgitation. Aortic Valve Aortic valve not well visualized. No aortic stenosis. No aortic regurgitation. Tricuspid Valve Structurally normal tricuspid valve. Trace tricuspid regurgitation. Pulmonic Valve Pulmonic valve not well visualized. Pericardium No pericardial effusion. Epicardial fat Aorta Aortic root and proximal ascending aorta not well visualized. CONCLUSIONS Technically difficult study. LVEF 55-60% No obvious regional wall motion abnormality Mild left atrial dilatation No significant valvular dysfunction Normal RV size and systolic function Epicardial fat Previewed by: Dr Giovany Gil (Electronically Signed) Final Date: 27 January 2025 13:03
[2025-01-27] MEDS: METOPROLOL TARTRATE 25 MG TAB PO STA (14:39)
[2025-01-27] MEDS: amLODIPine 10 MG TAB PO SCH (14:39)
--- NOTE | 2025-01-27 14:44 | P.CNNES ---
History of Present Illness Consult date: 01/27/25 Requesting physician: Dragan E Sheet Reason for Consult: r/o cva, weakness right arm, has pacemaker History of Present Illness: This is a 74-year-old woman who presented emergency department because of recurrent falls. Patient is not a great historian but she stated in the last 1 week or 2 weeks she has been having recurrent falls and just having generalized weakness. She is unsure how she is following. She denies any loss of consciousness. Denies any history of seizure. is at bedside and it seems that the patient had right old shoulder surgery that deficit over the proximal right upper extremity as a result and that it is about 3 to 4 years ago. She also had a fracture in the left hip and had left hip replacement. According to the she uses a walker. Patient feels her left lower extremity is weaker than baseline. Patient does acknowledge that he she is on statin at home. She has history of 2 strokes in her 4 years old. Patient is on Crestor at home. The ED team seems that the neighbor checked up on the patient and found her on the ground with hematoma of the left forehead. Per the ED team's note the patient was sleeping on the ground when she went to watch TV and does not remember falling. Unsure how long the patient has been on statin. Spoke with the primary attending and he is concerned about a stroke because of right upper extremity weakness and left lower extremity weakness and he states that she had a CT of the head which was negative for any acute stroke but unable to obtain MRI of the brain since the patient has a pacemaker. Some of the workup during this hospital visit consisted of: Patient is afebrile White blood cell is high as 26.9 thousand repeat at 17.2 CK level is 21,000 and most recent 1 is 25,000 AST is 94 and ALT is 44 Ammonia send Plasma lactic acid venous 5.1 and repeat is 2.6. u/a: leukocyte esterase is large, nitrite is postive Urine culture: Gram neg bacilli, coag neg staph CT of the head is reported as no acute bleed or mass effect. Mild to moderate senescent changes. Personally reviewed the CT of the head and I agree. Has an old lacune over the right basal ganglia CT cervical spine no acute trauma. Multilevel degenerative disease and osteoarthritis as described above. Car duplex is reported as moderate narrowing of the right internal carotid artery 50 to 69%. Mild narrowing of the left internal carotid artery less than 50%. Difficulty with examination due to Cadwell and positioning of the vessel. There may be some focal stenosis of the right carotid bulb with a marked elevated velocity of 216 cm over second. Condition additional workup. 2D echo was reported as technically difficult study. Ejection fraction 55 to 60%. No obvious regional wall motion abnormality. No significant valvular dysfunction. Review of Systems Limited but as per HPI. Past Medical History Past Medical History: Coronary Artery Disease (CAD), Chest Pain / Angina, CV A/TIA, Hyperlipidemia, Hypertension, Myocardial Infarction ([place]), Osteoarthritis (OA) Additional Past Medical History / Comment(s): TIA 3, SICK SINUS SYNDROME Last Myocardial Infarction Date:: unknown History of Any Multi-Drug Resistant Organisms: None Reported Past Surgical History: Section, Cholecystectomy, Heart Catheterization, Pacemaker Additional Past Surgical History / Comment(s): medronic pacemaker Past Anesthesia/Blood Transfusion Reactions: No Reported Reaction Type of Cardiac Device: Permanent Pacemaker Device Placement Date:: April 2021 Past Psychological History: No Psychological Hx Reported Smoking Status: Never smoker Past Alcohol Use History: None Reported Past Drug Use History: None Reported - Past Family History Father Family Medical History: Diabetes Mellitus, Myocardial Infarction ([place]) Sister(s) Additional Family Medical History / Comment(s): enlarged heart at age 50 Medications and Allergies Home Medications Medication Instructions Recorded Confirmed Type Metoprolol Tartrate [Lopressor] 25 mg PO DAILY 10/19/21 01/25/25 History Zolpidem [Ambien] 10 mg PO HS #4 tab 10/23/21 01/25/25 Rx Rosuvastatin [Crestor] 20 mg PO DAILY 01/25/25 01/25/25 History Allergies Allergy/AdvReac Type Severity Reaction Status Date / Time nitroglycerin Allergy Nausea & Verified 01/25/25 15:42 Vomiting & Diarrhea Physical Examination - Vital Signs Vital Signs: Vital Signs Temp Pulse Pulse Resp BP BP Pulse Ox 01/27/25 10:50 97.9 F 94 18 190/77 98 01/27/25 03:03 98.3 F 80 18 142/81 97 01/27/25 01:58 87 18 01/27/25 00:00 99.1 F 87 18 123/76 99 01/26/25 21:00 91 18 01/26/25 20:56 76 18 169/76 97 02/27/25 18:13 84 18 153/49 95 01/26/25 18:00 98.3 F 91 18 156/80 96 Intake and Output 01/26/25 01/27/25 01/27/25 22:59 06:59 14:59 Intake Total 120 Output Total 0 250 Balance 0 -130 Intake: Oral 120 Output: Urine 0 250 Other: Voiding Method Indwelling Catheter Indwelling Catheter # Bowel Movements 1 Weight 111.13 kg 107.5 kg General: Sitting in a recliner chair and is not in acute distress. Neuro: The patient is awake alert oriented to self place. She states the month is January. She correctly states the current year. She is following simple commands. No aphasia Pupils are round about 3 to 4 mm bilaterally and reactive to light. Visual vazquez are full to confrontation. Extraocular movements intact no nystagmus. Normal facial sensation touch. Right nasolabial flattening. No dysarthria Motor: Right upper extremity proximally is somewhat limited because of shoulder injury that remote but has at least 4+ otherwise the rest of the right upper extremity is 5 out of 5. Left lower extremity proximally is 4+ otherwise rest of the left lower extremity is 5 out of 5. Rest of extremities are 5 out of 5. The I examined the strength multiple times and he states that this is her baseline. Normal tone and bulk Sensation is normal to touch Cerebellar is normal [id number] bilaterally. Reflexes is 2 positive throughout Plantars are mute. Results - Laboratory Findings CBC and BMP: 01/26/25 07:00 01/27/25 06:24 Abnormal Lab Findings: Abnormal Labs 01/25/25 01/25/25 01/25/25 14:24 14:24 14:24 WBC 26.9 H Plt Count 464 H Neutrophils # 23.7 H Sodium 135 L Chloride 96 L Carbon Dioxide Glucose 157 H Plasma Lactic Acid Brandyn 5.1 H* Delta Bilirubin AST 94 H ALT 44 H Creatine Kinase 2105 H* Total Protein 8.6 H Urine Appearance Urine Protein Urine Ketones Urine Blood Urine Nitrite Ur Leukocyte Esterase Urine RBC Urine WBC Urine Bacteria Urine Mucus 01/25/25 01/25/25 01/26/25 17:12 18:27 07:00 WBC 17.2 H Plt Count Neutrophils # 13.0 H Sodium Chloride Carbon Dioxide Glucose Plasma Lactic Acid Brandyn 2.6 H* Delta Bilirubin AST ALT Creatine Kinase Total Protein Urine Appearance Cloudy H Urine Protein 2+ H Urine Ketones 1+ H Urine Blood Moderate H Urine Nitrite Positive H Ur Leukocyte Esterase Large H Urine RBC 11 H Urine WBC 37 H Urine Bacteria Many H Urine Mucus Few H 01/26/25 01/27/25 07:00 06:24 WBC Plt Count Neutrophils # Sodium Chloride Carbon Dioxide 21 L Glucose 114 H Plasma Lactic Acid Brandyn Delta Bilirubin 0.3 H AST 81 H ALT 43 H Creatine Kinase 2287 H* 2515 H* Total Protein Urine Appearance Urine Protein Urine Ketones Urine Blood Urine Nitrite Ur Leukocyte Esterase Urine RBC Urine WBC Urine Bacteria Urine Mucus Assessment and Plan Assessment: This is a 74-year-old woman who presents to the emergency department since she was found on the ground by her neighbor. It seems that she has been having recurrent falls. She is on statin at home and has rhabdomyolysis as well as positive urinary tract infection. Primary team is about a stroke because of right upper extremity weakness as well as left lower extremity weakness. According the patient she has been having recurrent falls in the last 1 to 2 wee . She has right upper extremity shoulder injury as well as left hip fracture and had replacement bilaterally at least 3 to 4 years ago with residual weakness per the . Rhabdomyolysis unsure if it is due to statin or the fall led to the rhabdomyolysis Acute urinary tract infection Right upper extremity proximal weakness and left lower extremity proximal weakness per the is baseline due to right shoulder injury and left hip injury. Slight transaminitis Right internal carotid artery stenosis of 50 to 69% on carotid duplex History of 2 strokes according to the patient in her [address]. On [address] of the head it seems that she has lacunar stroke over the right basal ganglia. Pacemaker Plan: Able to obtain MRI of the brain because of the pacemaker I ordered a repeat CT of the head and I ordered a CT lumbar spine to assess if there is any acute or subacute stroke or any significant stenosis contributing to her weakness. The feels it is old but the patient feels her left lower extremity is worse than baseline. Patient is not a great historian. Patient has carotid stenosis of 50 to 69% on the right with some focal stenosis of the right carotid bulb with markedly elevated velocity. I consulted vascular surgery team Meantime I ordered CT angiography of the neck I ordered TSH, aldolase, LDH, myoglobin for her rhabdomyolysis. Recommend holding off statin because of her rhabdomyolysis. Recommend EMG with nerve conduction study as an outpatient of the lowers to assess for any myopathy. I ordered a routine EEG because of her recurrent falls to rule out any seizure or discharges which I feel is highly unlikely. Recommend aspirin 81 mg daily. As stated above hold any statin because of her rhabdomyolysis PT and OT are consulted Will defer the rest of the medical management the primary and other specialist Plan discussed with the patient, her is at bedside and primary attending Thank you for the consultation Dr. Mena will resume neurology service tomorrow A.M. Time with Patient: Greater than 30
[2025-01-27 15:32] LABS: LDH 264 U/L (120-246)
--- NOTE | 2025-01-27 15:51 | P.CONS ---
History of Present Illness - Reason for Consult Consult date: 01/27/25 Bacteremia Requesting physician: Dragan E Sheet - Chief Complaint Found on the floor x 1 day on admission - History of Present Illness Patient is a 74-year-old female with a past medical history significant for Coronary Artery Disease (CAD), Chest Pain / Angina, CVA/TIA, Hyperlipidemia, Hypertension, Myocardial Infarction ([place]), Osteoarthritis (OA), patient has been brought to the hospital 2 days ago after the patient was found on the ground with a hematoma to the left forehead patient did not remember falling or any injury to the head or any focal weakness patient was brought into the hospital on arrival to the ER patient was afebrile she did have a low-grade fever of 99.1, patient did have white count of 26.9 on admission which is down to 17.2 creatinine has been normal electrolytes are normal liver enzymes are mildly elevated did have elevated CKs also have a positive UA patient blood cultures came back positive with coagulase-negative staph urine is growing gram- negative bacilli infectious disease was consulted for further management of antibiotic therapy patient currently denies having any open wound did have mild erythema to the right upper extremity but no open wound or any drainage denies any chest pain shortness of breath or cough no abdominal pain no diarrhea Review of Systems Positive point and negatives has been mentioned in the HPI, complete review of systems was performed and all other systems are negative Past Medical History Past Medical History: Coronary Artery Disease (CAD), Chest Pain / Angina, CVA/TIA, Hyperlipidemia, Hypertension, Myocardial Infarction ([place]), Osteoarthritis (OA) Additional Past Medical History / Comment(s): TIA 3, SICK SINUS SYNDROME Last Myocardial Infarction Date:: unknown History of Any Multi-Drug Resistant Organisms: None Reported Past Surgical History: Section, Cholecystectomy, Heart Catheterization, Pacemaker Additional Past Surgical History / Comment(s): medronic pacemaker Past Anesthesia/Blood Transfusion Reactions: No Reported Reaction Type of Cardiac Device: Permanent Pacemaker Device Placement Date:: April 2021 Past Psychological History: No Psychological Hx Reported Smoking Status: Never smoker Past Alcohol Use History: None Reported Past Drug Use History: None Reported - Past Family History Father Family Medical History: Diabetes Mellitus, Myocardial Infarction ([place]) Sister(s) Additional Family Medical History / Comment(s): enlarged heart at age 50 Medications and Allergies Home Medications Medication Instructions Recorded Confirmed Type Metoprolol Tartrate [Lopressor] 25 mg PO DAILY 10/19/21 01/25/25 History Zolpidem [Ambien] 10 mg PO HS #4 tab 10/23/21 01/25/25 Rx Rosuvastatin [Crestor] 20 mg PO DAILY 01/25/25 01/25/25 History Allergies Allergy/AdvReac Type Severity Reaction Status Date / Time nitroglycerin Allergy Nausea & Verified 01/25/25 15:42 Vomiting & Diarrhea Physical Exam Vitals: Vital Signs Temp Pulse Pulse Resp BP BP Pulse Ox 01/27/25 10:50 97.9 F 94 18 190/77 98 01/27/25 03:03 98.3 F 80 18 142/81 97 01/27/25 01:58 87 18 01/27/25 00:00 99.1 F 87 18 123/76 99 01/26/25 21:00 91 18 01/26/25 20:56 76 18 169/76 97 01/26/25 18:13 84 18 153/49 95 01/26/25 18:00 98.3 F 91 18 156/80 96 01/26/25 14:11 78 16 151/86 01/26/25 12:22 115 H 18 172/77 Intake and Output 01/26/25 01/27/25 01/27/25 22:59 06:59 14:59 Intake Total 120 Output Total 0 250 Balance 0 -130 Intake: Oral 120 Output: Urine 0 250 Other: Voiding Method Indwelling Catheter Indwelling Catheter # Bowel Movements 1 Weight 111.13 kg 107.5 kg GENERAL DESCRIPTION: Elderly female up in wheelchair, no distress. No tachypnea or accessory muscle of respiration use. HEENT: Shows Pallor , no scleral icterus. Oral mucous membrane is dry. NECK: Trachea central, no thyromegaly. LUNGS: Unlabored breathing. Clear to auscultation anteriorly. No wheeze or crackle. HEART: S1, S2, regular rate and rhythm. No loud murmur ABDOMEN: Soft, no tenderness , guarding or rigidity, no organomegaly EXTREMITIES: No edema of feet. SKIN: Right upper extremity did have some erythema but no open wound or any drainage NEUROLOGICAL: The patient is awake, alert, mood and affect normal. Results CBC & Chem 7: 01/26/25 07:00 01/27/25 06:24 Labs: Abnormal Lab Results - Last 24 Hours (Table) 01/27/25 Range/Units 06:24 Creatine Kinase 2515 H* (30-135) U/L Microbiology - Last 24 Hours (Table) 01/25/25 17:59 Blood Culture Gram Stain - Preliminary Blood Blood Culture - Preliminary Coagulase Negative Staph Molecular ID 01/25/25 17:12 Urine Culture - Preliminary Urine,Voided Gram Neg Bacilli Assessment and Plan (1) Positive blood culture Current Visit: Yes Status: Acute Code(s): R78.81 - BACTEREMIA SNOMED Code(s): 897224150 (2) UTI (urinary tract infection) Current Visit: Yes Status: Acute Code(s): N39.0 - URINARY TRACT INFECTION, SITE NOT SPECIFIED SNOMED Code(s): 34348334 (3) Leukocytosis Current Visit: Yes Status: Acute Code(s): D72.829 - ELEVATED WHITE BLOOD CELL COUNT, UNSPECIFIED SNOMED Code(s): 295120331 Plan: 1patient did have a positive blood culture with staph epi which is more likely skin contamination rather than true pathogen however will repeat blood culture mention evidence of any persistent bacteremia hold on adding vancomycin 2patient also have elevated white count source possibly urinary with urine currently growing gram-negative versus abdominal the patient did have elevated liver enzymes 3we will obtain ultrasound of the liver gallbladder area. 4continue with Rocephin while waiting for the workup to be completed We will follow on clinical condition and cultures to further adjust medication if needed Thank you for this consultation we will follow the patient along with you Dictation was produced using [employer] dictation software. please excuse any grammatical, word or spelling errors. Time with Patient: Greater than 30
[2025-01-27] MEDS: METOPROLOL TARTRATE 50 MG TAB PO SCH (21:32)
[2025-01-28] MEDS: HALOPERIDOL LACTATE 5 MG/ML 1 ML VIAL IM ONE (01:43)
--- NOTE | 2025-01-28 03:46 | P.EN ---
Through the day patient began more confused and more paranoid, patient was heart to redirect her she wanted to leave and she was pulling her lines. Staff have to give her Haldol 4 mg IM. Patient was getting more confused through the night, sitter has to be placed for safety. Orthostatic vitals and speech and swallow evaluation requested. Patient was made NPO. She was going for CT angio and she could not provide consent. We tried to contact the and normal response. Orthostatic vitals came back positive. Her blood pressure was 150/78 sitting and standing was 132/74. And this is while she is getting normal saline 100 mL/h. Patient could not get up with the help of the staff earlier and walk with a walker but her gait was somewhat wobbly. Patient is high risk for fall. She is high risk for aspiration. I would recommend to keep the patient n.p.o. and do official speech and swallow evaluation. Continue with sitter at bedside. Earlier patient was hypertensive and metoprolol increased to 50 mg and added Norvasc 10 mg with close monitoring casw was discussed with the staff
[2025-01-28] MEDS: METOPROLOL TARTRATE 50 MG TAB PO SCH (06:21)
[2025-01-28 07:33] LABS: Basophils % (A) 0 %; Eosinophils # (A) 0.2 k/uL (0-0.7); Eosinophils % (A) 2 %; HCT 42.2 % (34.0-46.0); HGB 12.9 gm/dL (11.4-16.0); Lymphocytes % (A) 24 %; MCH 27.9 pg (25.0-35.0); MCHC 30.7 g/dL (31.0-37.0); Mean Platelet Volume 7.8; Monocytes % (A) 8 %; Neutrophils # (A) 8.3 k/uL (1.3-7.7); Neutrophils % (A) 65 %; Platelet Count 384 k/uL (150-450); RBC 4.63 m/uL (3.80-5.40); RDW 13.4 % (11.5-15.5); WBC 12.7 k/uL (3.8-10.6)
[2025-01-28 08:21] LABS: African American GFR (CKD) >90 (>60 ml/min/1.73 sqM); Anion Gap 11 mmol/L; Blood Urea Nitrogen 7 mg/dL (7-17); Calcium 9.1 mg/dL (8.4-10.2); Carbon Dioxide 23 mmol/L (22-30); Chloride 102 mmol/L (98-107); Glucose 109 mg/dL (74-99); Non-African American GFR(CKD) 89 (>60 ml/min/1.73 sqM); Potassium 3.7 mmol/L (3.5-5.1); Sodium 136 mmol/L (137-145)
[2025-01-28 09:01] LABS: Creatine Kinase 14531 U/L (30-135)
--- NOTE | 2025-01-28 09:07 | US ---
EXAMINATION TYPE: US abdomen limited DATE OF EXAM: 01/28/2025 COMPARISON: NONE CLINICAL INDICATION: Female, 74 years old with history of Elevated liver enzymes rule out cholecystit is; elevated liver enzymes gallbladder was removed. TECHNIQUE: Grayscale and color Doppler imaging of the right upper quadrant was performed. FINDINGS: EXAM MEASUREMENTS: Liver Length: 17 cm Gallbladder Wall: Surgically absent CBD: 1.0 cm Right Kidney: 11.6 x 5.7 x3.5 cm HAND SPRAYER NOTES: Pancreas: Obscured by bowel gas Liver: Increased attenuation Gallbladder: Surgically absent CBD: wnl Right Kidney: Cortical thinning. Pancreas is obscured by overlying bowel gas. The liver demonstrates increased echogenicity with coars ened echotexture. No surface nodularity. No focal lesion identified. Gallbladder is surgically absent . Common bile duct is within normal limits for postcholecystectomy. Right kidney demonstrates no hydr onephrosis, shadowing calculi or solid mass. There is cortical thinning identified. IMPRESSION: 1. Postcholecystectomy changes. 2. Hepatic steatosis. 3. Cortical thinning of the right kidney suggesting medical renal disease. [facility], , 01/28/2025 9:05 AM
--- NOTE | 2025-01-28 10:00 | P.PN ---
Subjective Patient is seen in follow-up for rhabdomyolysis. CK level higher at 14,531 today. Maintained on IV fluids. Deal catheter removed. Has been voiding. Vital signs are stable. General: No acute distress. HEENT: Head exam is unremarkable. LUNGS: No audible rhonchi or wheezes. HEART: Rate and Rhythm are regular. ABDOMEN: Nontender. EXTREMITITES: No edema. Objective - Vital Signs Vital signs: Vital Signs Temp 98.2 F 01/28/25 03:45 Pulse 82 01/28/25 03:45 Resp 18 01/28/25 03:45 BP 175/91 01/28/25 03:45 Pulse Ox 96 01/28/25 03:45 FiO2 Intake & Output 01/27/25 01/28/25 01/28/25 18:59 06:59 18:59 Intake Total 360 0 Output Total 250 Balance 110 0 Weight 108.5 kg Intake: Oral 360 0 Output: Urine 250 Other: Voiding Method External Catheter Toilet Diaper # Voids 1 1 # Bowel Movements 1 - Labs CBC & Chem 7: 01/28/25 05:58 01/28/25 05:58 Labs: Abnormal Lab Results - Last 24 Hours (Table) 01/27/25 01/28/25 01/28/25 Range/Units 06:24 05:58 05:58 WBC 12.7 H (3.8-10.6) k/uL MCHC 30.7 L (31.0-37.0) g/dL Neutrophils # 8.3 H (1.3-7.7) k/uL Sodium 136 L (137-145) mmol/L Glucose 109 H (74-99) mg/dL Lactate Dehydrogenase 264 H (120-246) U/L Creatine Kinase 54212 H* (30-135) U/L Microbiology - Last 24 Hours (Table) 01/25/25 17:59 Blood Culture Gram Stain - Preliminary Blood Blood Culture - Preliminary Coagulase Negative Staph Molecular ID 01/25/25 17:12 Urine Culture - Preliminary Urine,Voided Gram Neg Bacilli Assessment and Plan Plan: Assessment: 1. Rhabdomyolysis secondary to fall/immobility. Also on Lipitor. CK level 14,531 today. 2. Benign hypertension. 3. Gram-negative UTI maintained on antibiotics. Plan: Maintain normal saline. Increase rate to 150 cc an hour. Repeat CK level in the morning. Lipitor stopped January 27, 2025. Avoid statins for now. Preserved EF noted on echocardiogram.
--- NOTE | 2025-01-28 10:26 | CT ---
EXAMINATION TYPE: CT brain wo con CT DLP: 1231.6 mGycm, Automated exposure control for dose reduction was used. DATE OF EXAM: 01/28/2025 10:16 AM COMPARISON: CT brain C-spine 01/25/2025. CLINICAL INDICATION:Female, 74 years old with history of left sided weakness, TECHNIQUE: Brain: Multiple axial CT images of the brain were obtained without IV contrast. . Coronal and sagitta l reformats reviewed. FINDINGS: Brain: Extra-axial spaces: No abnormal extra-axial fluid collections. Ventricular system: Within normal limits Cerebral parenchyma: Stable hyperdense foci within the right basal ganglia and right rubi radiata f rom prior CT. The lozano-white junction is well differentiated. Confluent hypoattenuating areas are se en within the periventricular and subcortical white matter. Cerebellum: Unremarkable. Mass effect: No evidence of midline shift. Intracranial vasculature: Atherosclerotic calcifications of the intracranial vessels. Soft tissues: Normal. Calvarium/osseous structures: No depressed skull fracture. Benign hyperostosis frontalis noted. Paranasal sinuses and mastoid air cells: Clear Visualized orbits: Right aphakia IMPRESSION: 1. Stable hyperdense foci within the right basal ganglia and right rubi radiata from prior CT. May represent tiny intraparenchymal hemorrhage versus calcification. Consider further evaluation with MRI . 2. Nonspecific white matter changes, likely secondary to chronic small vessel ischemic disease. [facility], , 01/28/2025 10:24 AM
--- NOTE | 2025-01-28 10:37 | CT ---
EXAMINATION TYPE: CT angio neck CT DLP: 732.9 mGycm, Automated exposure control for dose reduction was used. DATE OF EXAM: 01/28/2025 10:17 AM COMPARISON: CT brain 01/28/2025, CT brain C-spine 01/25/2025 carotid ultrasound 01/26/2025. CLINICAL INDICATION:Female, 74 years old with history of rule out significant carotid stenosis. cva; PHH, TECHNIQUE: Axially acquired helical CT angiogram of the neck was obtained with contrast utilizing 75 cc of Isovue-370 administered intravenously. Axial images are supplemented with 3D reconstructions wh ich were post-processed at an independent workstation. NASCET criteria used. FINDINGS: CTA NECK: Right Carotid System: The common carotid artery and external carotid artery are patent. Mild stenosis of the external carot id artery. Moderate calcified plaque at the carotid bifurcation with a 50% stenosis of the origin of the internal carotid artery. Retropharyngeal course of the internal carotid artery. The remaining por tions of the internal carotid artery demonstrate normal size without significant narrowing. Left Carotid System: The common carotid artery and external carotid artery are patent. The carotid bifurcation demonstrate s no evidence of hemodynamically significant stenosis. Retropharyngeal course of the internal carotid artery. Mild atherosclerotic plaque involving the proximal internal carotid artery. The remaining po rtions of the internal carotid artery demonstrate normal size without significant narrowing. Vertebral arteries are patent without evidence hemodynamically significant stenosis. Dominant right v ertebral artery. The left vertebral artery terminates within the left PICA. There is a three-vessel aortic arch. The origins of the great vessels are patent. No evidence of hemo dynamically significant stenosis. Left anterior chest wall cardiac pacemaker device with 3 leads. Multilevel degenerative disc disease. IMPRESSION: Approximately 50% stenosis of the origin of the right internal carotid artery. No significant stenosi s of the left internal carotid artery. [facility], , 01/28/2025 10:34 AM
--- NOTE | 2025-01-28 10:50 | CT ---
EXAMINATION TYPE: CT lumbar spine wo con CT DLP: 2355.6 mGycm, Automated exposure control for dose reduction was used. DATE OF EXAM: 01/28/2025 10:16 AM COMPARISON: None. CLINICAL INDICATION:Female, 74 years old with history of left leg weakness; PHH, , pain TECHNIQUE: Multiple axial images were obtained from the midportion of T11 through the sacroiliac miguelito nts. Soft tissue and bone windows in coronal and sagittal planes were obtained and reviewed. Contrast used: none. Oral contrast used: none. FINDINGS: Alignment: There are 5 lumbar type vertebral bodies within normal alignment. Bone: No evidence of acute fracture is identified. Multilevel anterior osteophytosis. Remote right p osterior 11th rib fracture. Left hip arthroplasty change on the technical instructor course developer radiograph. Discs: Multilevel displacement with endplate sclerosis and vacuum disc disease. Multilevel Schmorl's nodes. T12-L1: No spinal canal or neural foraminal stenosis is identified. L1-L2: No spinal canal or neural foraminal stenosis is identified. L2-L3: Broad-based disc bulge with mild effacement of the anterior thecal sac. Bilateral facet arthro talib. No neural foraminal stenosis. L3-L4: Broad-based disc bulge without effacement of the anterior thecal sac. No central canal stenosi s. Bilateral facet arthropathy. No neural foraminal stenosis. L4-L5: Broad-based disc bulge with mild to moderate effacement of the anterior thecal sac. Bilateral facet arthropathy. Mild bilateral neural foraminal stenosis. L5-S1: Broad-based disc bulge without effacement of the anterior thecal sac. No central canal stenosi s. Bilateral facet arthropathy. Mild bilateral neural foraminal stenosis. Other: Sigmoid diverticulosis without visualized acute diverticulitis. Mild atherosclerotic calcifica tion of the aorta and branches. IMPRESSION: 1. No evidence for acute spinal fracture. 2. Mild to moderate multilevel degenerative disc disease and facet arthropathy. [facility], , 01/28/2025 10:47 AM
--- NOTE | 2025-01-28 11:29 | P.GSCN ---
History of Present Illness Consult date: 01/28/25 History of present illness: Patient is a 80-year-old female initially admitted with fall and potential confusion/altered mental status. Her used to take care of at home but supposedly went to group home recently and cannot take care of her anymore. EMS was called by the neighbor stating she was not acting right. She has multiple falls in the past 2 weeks. She has had loose stools and phlegm with mild abdominal pain. On workup and evaluation she was found to have an elevated white count and evidence of a bacteremia as well as significantly elevated creatinine kinase. She underwent a carotid Doppler which shows potential 50 to 60% stenosis at the right carotid bulb. This morning she underwent a CT a which shows severe stenosis at the carotid bulb with circumferential calcium. She denies any significant issues at this time other than being sleepy. Past Medical History Past Medical History: Coronary Artery Disease (CAD), Chest Pain / Angina, CVA/TIA, Hyperlipidemia, Hypertension, Myocardial Infarction (CO), Osteoarthritis (OA) Additional Past Medical History / Comment(s): TIA 3, SICK SINUS SYNDROME Last Myocardial Infarction Date:: unknown History of Any Multi-Drug Resistant Organisms: None Reported Past Surgical History: Section, Cholecystectomy, Heart Catheterization, Pacemaker Additional Past Surgical History / Comment(s): medronic pacemaker Past Anesthesia/Blood Transfusion Reactions: No Reported Reaction Type of Cardiac Device: Permanent Pacemaker Device Placement Date:: April 2021 Past Psychological History: No Psychological Hx Reported Smoking Status: Never smoker Past Alcohol Use History: None Reported Past Drug Use History: None Reported - Past Family History Father Family Medical History: Diabetes Mellitus, Myocardial Infarction (CO) Sister(s) Additional Family Medical History / Comment(s): enlarged heart at age 50 Medications and Allergies Home Medications Medication Instructions Recorded Confirmed Type Metoprolol Tartrate [Lopressor] 25 mg PO DAILY 10/19/21 01/25/25 History Zolpidem [Ambien] 10 mg PO HS #4 tab 10/23/21 01/25/25 Rx Rosuvastatin [Crestor] 20 mg PO DAILY 01/25/25 01/25/25 History Allergies Allergy/AdvReac Type Severity Reaction Status Date / Time nitroglycerin Allergy Nausea & Verified 01/25/25 15:42 Vomiting & Diarrhea Surgical - Exam Vital Signs Temp Pulse Resp BP Pulse Ox 97.1 F L 126 H 18 169/103 96 02/26/25 13:32 01/25/25 13:32 01/25/25 13:32 01/25/25 13:32 01/25/25 13:32 GENERAL: The patient is alert and oriented x1 to place only, not in any acute distress. Well developed, well nourished. Obese HEENT: Pupils are round and equal. PULMONARY: No respiratory distress ABDOMEN: Soft, nontender MUSCULOSKELETAL: No joint swelling or deformity. EXTREMITIES: No cyanosis, clubbing, or pedal edema. NEUROLOGICAL: Cranial nerves are grossly intact. Mild left leg weakness and mild right upper extremity weakness. SKIN: No rashes. no petechiae. Results - Labs 01/28/25 05:58 01/28/25 05:58 Abnormal Lab Results - Last 24 Hours (Table) 01/27/25 01/28/25 01/28/25 Range/Units 06:24 05:58 05:58 WBC 12.7 H (3.8-10.6) k/uL MCHC 30.7 L (31.0-37.0) g/dL Neutrophils # 8.3 H (1.3-7.7) k/uL Sodium 136 L (137-145) mmol/L Glucose 109 H (74-99) mg/dL Lactate Dehydrogenase 264 H (120-246) U/L Creatine Kinase 08575 H* (30-135) U/L Microbiology - Last 24 Hours (Table) 01/25/25 17:59 Blood Culture Gram Stain - Preliminary Blood Blood Culture - Preliminary Coagulase Negative Staph Molecular ID 01/25/25 17:12 Urine Culture - Preliminary Urine,Voided Gram Neg Bacilli Diabetes panel 01/28/25 Range/Units 05:58 Sodium 136 L (137-145) mmol/L Potassium 3.7 (3.5-5.1) mmol/L Chloride 102 (98-107) mmol/L Carbon Dioxide 23 (22-30) mmol/L BUN 7 (7-17) mg/dL Creatinine 0.64 (0.52-1.04) mg/dL Glucose 109 H (74-99) mg/dL Calcium 9.1 (8.4-10.2) mg/dL Thyroid panel 01/27/25 Range/Units 06:24 TSH 2.640 (0.465-4.680) mIU/L Calcium panel 01/28/25 Range/Units 05:58 Calcium 9.1 (8.4-10.2) mg/dL Pituitary panel 01/27/25 01/28/25 Range/Units 06:24 05:58 Sodium 136 L (137-145) mmol/L Potassium 3.7 (3.5-5.1) mmol/L Chloride 102 (98-107) mmol/L Carbon Dioxide 23 (22-30) mmol/L BUN 7 (7-17) mg/dL Creatinine 0.64 (0.52-1.04) mg/dL Glucose 109 H (74-99) mg/dL Calcium 9.1 (8.4-10.2) mg/dL TSH 2.640 (0.465-4.680) mIU/L Adrenal panel 01/28/25 Range/Units 05:58 Sodium 136 L (137-145) mmol/L Potassium 3.7 (3.5-5.1) mmol/L Chloride 102 (98-107) mmol/L Carbon Dioxide 23 (22-30) mmol/L BUN 7 (7-17) mg/dL Creatinine 0.64 (0.52-1.04) mg/dL Glucose 109 H (74-99) mg/dL Calcium 9.1 (8.4-10.2) mg/dL Assessment and Plan Assessment: Right internal carotid artery stenosis measuring 50% at the bulb on CT, 50 to 69% on imaging ultrasound Rhabdomyolysis secondary to fall Acute UTI Bacteremia versus contamination Plan: I reviewed all imaging. At this point patient does have evidence of moderate stenosis of the right internal carotid artery. At this time continue conserva tive treatments and will follow-up outpatient. Difficult to determine if current issues are more related to UTI sepsis and other findings. Will continue to follow. Continue medications as ordered
--- NOTE | 2025-01-28 15:05 | P.PN ---
Progress Note - Text Interval History: This is a pleasant 74 years old female who presents for a fall. Her neighbor called EMS for her. Also her used to take care of her but he went to retirement yesterday and he cannot take care of her anymore. And neighbor found her on the floor. As per patient the neighbor was noticing that she was not acting right lately and she looked weird. Patient states she felt few times about 6-7 times over the last 1 to 2 weeks she is falling about 3 times per week. She reports some diarrhea for about 1 to 2 weeks but no abdominal pain or vomiting. She denies specific symptoms for me like dysuria or urgency she denies chest pain or dyspnea but she has chronic cough with no phlegm. She denies headache dizziness. She had called recently with sneezing Currently she complains from abdominal pain about 2 to 2 months mild in the epigastric area. She has also left hip pain more than 1 month ago. Her right arm feels weak for about 2 months and her left leg feels weak for about 2-1/2 months Patient is afebrile She is tachycardic with heart rate 1 26-114 Blood pressure is acceptable She has leukocytosis of 26.9, baseline about 10-19. Liver enzymes mildly elevated. Rest of CBC, BMP, LFT were unremarkable Urine analysis is highly suspicious for infection. Troponin is negative at 0.03. Lactic acid elevated 5.1 Creatinine kinase elevated 2105 Alcohol level is less than 10 Pelvic x-ray is negative. Chest x-ray showing no acute process CT of the head and neck is negative for acute process. 01/23 Patient is more awake, still little bit confused and to the surrounding She denies any pain, she is asking if she can go home today. She complains from dysuria and Deal catheter in place. Urine culture is pendin g and currently on Rocephin. Renal ultrasound showing no hydronephrosis Patient mentation slightly improved. However she still complains from weakness in her both right upper extremity and left lower extremities. Patient when I asked her today the duration she states about a year, although yesterday she mentioned 2 months and 2 months and a half. Then patient states she is not sure. Also complains from some tingling in her both fingers and toes on both sides. No headache dizziness blurred vision or slurred speech. She remains on IV fluid normal saline 100 mL/h. Creatinine kinase looks the same to 287. Liver enzymes only slightly better. Leukocytosis significantly improved down to 17 which is close to her baseline. 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 However she still have generalized weakness. She still have weakness in the right upper extremity with limitation in moving her arm above her head. Little discomfort in her right shoulder. Will check shoulder and cervical spine chest x-ray.. Also she is complaining from left lower leg weakness. Patient was little bit inconsistent in her history, initially said that this is for 2 months, then yesterday said it is for 1 year and today she said it has been going on for 3 weeks. However patient is better historian today. No abdominal pain suprapubic pain and tenderness. Blood culture was positive with Staph epidermidis. This could be contamination. Patient already on ceftriaxone. Will consult infectious disease team. Creatinine kinase still elevated to 5.5. Rest of BMP and magnesium are within the reference range. Rest of labs pending Urine cultures growing gram-negative bacilli Carotid Doppler: Moderate narrowing of the right internal carotid artery between 50 and 69%. Mild narrowing of the left internal carotid artery of less than 50%. There may be some focal stenosis of the right carotid bulb with mild elevated velocity of 216 cm per S consider additional workup 01/28--- patient was seen and examined today. Mentation is better as compared to yesterday. Vascular surgery evaluated the patient, CT angio showed 50% right ICA stenosis, vascular surgery recommended conservative treatment, outpatient follow-up. Remains on Rocephin for UTI. PT/OT/SHAREPOINT APPLICATION DEVELOPER consulted. MRI brainshowed subtle hyperdense foci in right basal ganglia, right rubi radiator, could be intraparenchymal tiny hemorrhage versus calcification. Neurology consulted. CT lumbar spine showed mild to moderate degenerative disc disease. CPK is trending up, statin has been held since yesterday, nephrology following, increased IV fluids. Renal function stable. Assessment and plan: Acute urinary tract infection Sepsis with leukocytosis and tachycardia' recurrent falls: Rhabdomyolysis--traumatic, secondary to recurrent falls Bacteremia with Staph epidermidis, likely contamination Right internal carotid artery stenosis between 50 to 69% with focal stenosis of the right carotid bulb Weakness and distal toes/fingers numbness of both right upper extremity and left lower extremity, looks chronic but patient is inconsistent Forgetfulness possible of elements of vascular dementia and Alzheimer dementia, needs evaluation as an outpatient Lactic acidemia, improved Hypertension urgency Leukocytosis on chronic problem of leukocytosis Toxic metabolic encephalopathy Weakness of the right upper extremity and left upper extremity. Could be secondary to fall. Rule out joint abnormality, dislocation or fracture. Consider central causes Plan: Continue with ceftriaxone Urine culture IV fluids. Ultrasound of the kidney is reviewed Follow-up creatinine kinase Nephrology team consulted, rhabdomyolysis likely secondary to recurrent falls, on IV fluids, hold statin. Continue with aspirin, and Lipitor Neurology consulted--MRI brain showed right basal ganglia, right rubi radiator hyperdense foci, could be tiny intraparenchymal hemorrhage versus calcification, on nonspecific white matter changes. CT angio neck showed 50% stenosis of right ICA, no significant stenosis of left ICA. CT lumbar spine showed no acute fracture, mild to moderate multilevel degenerative disc disease. Right shoulder and cervical spine x-ray reviewed Pain management consulted DVT prophylaxis: Subcutaneous heparin Disposition: PT/OT consult, SHAREPOINT APPLICATION DEVELOPER consult Monitor vital signs and labs Labs and medication were reviewed. Continue same treatment. Further recommendations as per clinical course of the patient PHYSICAL EXAMINATION: GENERAL: The patient is A&O x3, NAD HEENT: EOMI, Sclerae anicteric, Moist Mucous membranes Neck: Supple, Non tender, No JVD PULMONARY: Equal breath souds B/L, No wheezing, No crackles. CARDIOVASCULAR: S1, S2 present. No murmurs, rubs, or gallops. ABDOMEN: Soft, nontender, nondistended, normoactive bowel sounds. No guarding or rebound tenderness. MUSCULOSKELETAL: No edema, No cyanosis. No clubbing. Normal ROM. Intact peripheral pulses. NEUROLOGICAL: CN 2-12 grossly intact. No FND Skin: No Rash REVIEW OF SYSTEMS: CONSTITUTIONAL: No fever or chills. CARDIOVASCULAR: No chest pain, palpitations or syncope. PULMONARY: No shortness of breath, no cough, sore throat. GASTROINTESTINAL: No nausea, vomiting, diarrhea, abdominal pain. : No Dysuria, urgency, frequency. Extremities: No edema. NEUROLOGICAL: No headaches, no weakness, or numbness Dictation was produced using [employer] software. please excuse any grammatical, word or spelling errors.
--- NOTE | 2025-01-28 15:55 | P.PN ---
Subjective Progress Note Date: 01/28/25 Patient was initially seen by Dr. Benjamin Bello. Please refer to his notes for details. Patient is a 74-year-old female with rhabdomyolysis and was found on the ground by the neighbor. She was on statins at home. Unsure if statin led to rhabdomyolysis that led to fall or vice versa. Patient has old right shoulder injury and left hip injury with deficit but? Worsening left lower weakness. Primary was concerned about CVA. Dr. Bello ordered repeat CT head, consulted vascular for right carotid stenosis. Patient was seen for a follow-up. Patient's and a sitter were present. Patient has been believes that she is doing better. She walked with her walker and 2 people assist. Patient has has history of left hip replacement in the past. Patient has history of 1 rotator cuff surgery also. Per nurse report, she has not slept at all last night. She is having some hallucinations, seeing ants, dogs under the bed. Some of the workup during this hospital visit consisted of: Patient is afebrile White blood cell is high as 26.9 thousand repeat at 17.2 CK level is 21,000 and most recent 1 is 25,000 AST is 94 and ALT is 44 Ammonia send Plasma lactic acid venous 5.1 and repeat is 2.6. u/a: leukocyte esterase is large, nitrite is postive Urine culture: Gram neg bacilli, coag neg staph CT of the head is reported as no acute bleed or mass effect. Mild to moderate senescent changes. Personally reviewed the CT of the head and I agree. Has an old lacune over the right basal ganglia CT cervical spine no acute trauma. Multilevel degenerative disease and os teoarthritis as described above. Car duplex is reported as moderate narrowing of the right internal carotid artery 50 to 69%. Mild narrowing of the left internal carotid artery less than 50%. Difficulty with examination due to Leigh and positioning of the vessel. There may be some focal stenosis of the right carotid bulb with a marked elevated velocity of 216 cm over second. Condition additional workup. 2D echo was reported as technically difficult study. Ejection fraction 55 to 60%. No obvious regional wall motion abnormality. No significant valvular dysfunction. Objective - Vital Signs Vital signs: Vital Signs Temp 98.0 F 01/28/25 08:20 Pulse 68 01/28/25 12:00 Resp 18 01/28/25 12:00 BP 162/70 01/28/25 12:00 Pulse Ox 98 01/28/25 12:00 FiO2 Intake & Output 01/27/25 01/28/25 01/28/25 18:59 06:59 18:59 Intake Total 360 500 Output Total 250 1350 Balance 110 -850 Weight 108.5 kg Intake: Intake, IV Titration 500 Amount Sodium Chloride 0.9% 1, 500 000 ml @ 150 mls/hr IV . Q6H40M [facility] Rx#:[id number] Oral 360 0 Output: Urine 250 1350 Other: Voiding Method External Catheter Toilet Toilet Diaper Diaper # Voids 1 1 # Bowel Movements 1 - Exam Patient is an elderly female, who is delirious, laying in the bed. She is hard of hearing. Her speech is slightly slurred, but no aphasia or dysarthria. Patient states that she is in [place] in [place], but does not know the name of the building. She knows it is December 2024. She knows that she has been for 25 years. On cranial examination pupils are equal, round and reacting, visual vazquez are full. Patient did not cooperate well. Face is symmetric. Tongue protrudes to midline. On muscle strength testing, the strength is normal in arms at the deltoid, biceps, triceps and cdl b driver bilaterally. In the lower limb, her left hip flexion is weak 4+ with normal right hip flexion 5. Ankle dorsiflexion are normal. Patient has very mild tremors of outstretched hand. Patient has peripheral edema. - Labs CBC & Chem 7: 01/28/25 05:58 01/28/25 05:58 Labs: Abnormal Lab Results - Last 24 Hours (Table) 01/27/25 01/28/25 01/28/25 Range/Units 06:24 05:58 05:58 WBC 12.7 H (3.8-10.6) k/uL MCHC 30.7 L (31.0-37.0) g/dL Neutrophils # 8.3 H (1.3-7.7) k/uL Sodium 136 L (137-145) mmol/L Glucose 109 H (74-99) mg/dL Lactate Dehydrogenase 264 H (120-246) U/L Creatine Kinase 38660 H* (30-135) U/L Microbiology - Last 24 Hours (Table) 01/25/25 17:12 Urine Culture - Final Urine,Voided Klebsiella pneumoniae 01/25/25 17:59 Blood Culture Gram Stain - Final Blood Blood Culture - Final Staphylococcus epidermidis Molecular ID Assessment and Plan Assessment: This is a 74-year-old woman who presents to the emergency department since she was found on the ground by her neighbor. It seems that she has been having recurrent falls. She is on statin at home and has rhabdomyolysis as well as positive urinary tract infection. Primary team is about a stroke because of right upper extremity weakness as well as left lower extremity weakness. According the patient she has been having recurrent falls in the last 1 to 2 weeks. She has right upper extremity shoulder injury as well as left hip fracture and had replacement bilaterally at least 3 to 4 years ago with residual weakness per the . Rhabdomyolysis unsure if it is due to statin or the fall led to the rhabdomyolysis Acute urinary tract infection Right upper extremity proximal weakness and left lower extremity proximal weakness per the is baseline due to right shoulder injury and left hip injury. Slight transaminitis Right internal carotid artery stenosis of 50 to 69% on carotid duplex History of 2 strokes according to the patient in her 30s. On [address] of the head it seems that she has lacunar stroke over the right basal ganglia. Pacemaker Plan: Unable to obtain MRI of the brain because of the pacemaker Repeat CT head revealed stable hyperdense foci within the right basal ganglia and right rubi radiator from prior CT. May represent tiny intraparenchymal hemorrhage versus calcification. Consider further evaluation with MRI. Nonspecific white matter changes, likely secondary to chronic small vessel ischemic disease. CT lumbar spine showed no evidence for acute spinal fracture. Mild to moderate multilevel degenerative disc disease and facet arthropathy. Patient has carotid stenosis of 50 to 69% on the right with some focal stenosis of the right carotid bulb with markedly elevated velocity. CTA of neck revealed approximately 50% stenosis of the origin of the right ICA. No significant stenosis of the left ICA. Vascular surgery on board. They are recommending patient follow-up in the office outpatient. Uncertain if symptoms related to sepsis, rhabdomyolysis or carotid disease. TSH 2.64, LDH 264, aldolase and pending myoglobin for her rhabdomyolysis. Recommend holding off statin because of her rhabdomyolysis. Patient's rhabdomyolysis has got worse, with CK 14,531 today. IV fluids increased. Patient has developed delirium. She did not sleep at all last night. We will give trazodone 50 mg at bedtime. Recommend EMG with nerve conduction study as an outpatient [facility] to assess for any myopathy. Dr. Bello ordered an EEG because of her recurrent falls to rule out any seizure or discharges which he feels is unlikely. Recommend aspirin 81 mg daily. As stated above hold any statin because of her rhabdomyolysis PT and OT are consulted Will defer the rest of the medical management the primary and other specialist
[2025-01-28] MEDS: HALOPERIDOL LACTATE 5 MG/ML 1 ML VIAL IM PRN (17:19)
[2025-01-28] MEDS: traZODone HCL 50 MG TAB PO SCH (20:31)
[2025-01-28] MEDS: hydrALAZINE HCL 20 MG/ML 1 ML VIAL IVP PRN (23:34)
[2025-01-29] MEDS: MORPHINE SULFATE 4 MG/ML SYRINGE IV PRN (03:07)
[2025-01-29 07:05] LABS: Basophils % (A) 0 %; Eosinophils # (A) 0.3 k/uL (0-0.7); Eosinophils % (A) 2 %; HCT 42.7 % (34.0-46.0); HGB 13.2 gm/dL (11.4-16.0); Lymphocytes % (A) 25 %; MCH 28.1 pg (25.0-35.0); MCHC 30.9 g/dL (31.0-37.0); MCV 90.7 fL (80.0-100.0); Mean Platelet Volume 7.3; Monocytes % (A) 8 %; Neutrophils # (A) 7.3 k/uL (1.3-7.7); Neutrophils % (A) 63 %; Platelet Count 438 k/uL (150-450); RBC 4.71 m/uL (3.80-5.40); RDW 13.6 % (11.5-15.5); WBC 11.7 k/uL (3.8-10.6)
[2025-01-29 07:17] LABS: ALT 68 U/L (4-34); AST 207 U/L (14-36); African American GFR (CKD) >90 (>60 ml/min/1.73 sqM); Albumin 3.9 g/dL (3.5-5.0); Alkaline Phosphatase 105 U/L (38-126); Anion Gap 11 mmol/L; Blood Urea Nitrogen 5 mg/dL (7-17); Calcium 9.1 mg/dL (8.4-10.2); Carbon Dioxide 24 mmol/L (22-30); Chloride 101 mmol/L (98-107); Glucose 97 mg/dL (74-99); Non-African American GFR(CKD) >90 (>60 ml/min/1.73 sqM); Potassium 3.4 mmol/L (3.5-5.1); Sodium 136 mmol/L (137-145); Total Bilirubin 0.7 mg/dL (0.2-1.3); Total Protein 7.4 g/dL (6.3-8.2)
[2025-01-29 07:53] LABS: Creatine Kinase 7985 U/L (30-135)
--- NOTE | 2025-01-29 10:09 | P.PN ---
Subjective Patient is seen in follow-up for rhabdomyolysis. CK level trending down. Maintained on IV fluids. Nonoliguric. Poor historian. Vital signs are stable. General: No acute distress. HEENT: Head exam is unremarkable. LUNGS: No audible rhonchi or wheezes. HEART: Rate and Rhythm are regular. ABDOMEN: Nontender. EXTREMITITES: No edema. Objective - Vital Signs Vital signs: Vital Signs Temp 99.0 F 01/29/25 03:10 Pulse 74 01/29/25 03:10 Resp 18 01/29/25 03:10 BP 130/74 01/29/25 03:10 Pulse Ox 99 01/29/25 03:10 FiO2 Intake & Output 01/28/25 01/29/25 01/29/25 18:59 06:59 18:59 Intake Total 740 Output Total 2100 500 Balance -1360 -500 Weight 108 kg Intake: Intake, IV Titration 500 Amount Sodium Chloride 0.9% 1, 500 000 ml @ 150 mls/hr IV . Q6H40M [facility] Rx#:[id number] Oral 240 Output: Urine 2100 500 Other: Voiding Method Toilet Toilet External Catheter External Catheter # Bowel Movements 1 - Labs CBC & Chem 7: 01/29/25 05:41 01/29/25 05:41 Labs: Abnormal Lab Results - Last 24 Hours (Table) 01/29/25 01/29/25 Range/Units 05:41 05:41 WBC 11.7 H (3.8-10.6) k/uL MCHC 30.9 L (31.0-37.0) g/dL Sodium 136 L (137-145) mmol/L Potassium 3.4 L (3.5-5.1) mmol/L BUN 5 L (7-17) mg/dL AST 207 H (14-36) U/L ALT 68 H (4-34) U/L Creatine Kinase 7985 H* (30-135) U/L Microbiology - Last 24 Hours (Table) 01/25/25 17:12 Urine Culture - Final Urine,Voided Klebsiella pneumoniae 01/25/25 17:59 Blood Culture Gram Stain - Final Blood Blood Culture - Final Staphylococcus epidermidis Molecular ID Assessment and Plan Plan: Assessment: 1. Rhabdomyolysis secondary to fall/immobility. Was also on Lipitor. CK level now trending down -7985 today. 2. Benign hypertension. 3. Klebsiella UTI maintained on antibiotics. 4. Hypokalemia from poor intake. Plan: Maintain normal saline at 150 cc an hour. Repeat CK level in the morning. Lipitor stopped January 27, 2025. Avoid statins for now. Preserved EF noted on echocardiogram. Replace potassium.
[2025-01-29] MEDS: POTASSIUM CHLORIDE ER 20 MEQ TAB.ER PO STA (11:12)
--- NOTE | 2025-01-29 11:52 | P.PN ---
Subjective Progress Note Date: 01/29/25 Patient seen and examined. No changes overnight. Still restful with a sitter at the bedside Objective - Vital Signs Vital signs: Vital Signs Temp 98.2 F 01/29/25 08:00 Pulse 58 L 01/29/25 08:00 Resp 18 01/29/25 08:00 BP 132/74 01/29/25 08:00 Pulse Ox 95 01/29/25 08:00 FiO2 Intake & Output 01/28/25 01/29/25 01/29/25 18:59 06:59 18:59 Intake Total 740 Output Total 2100 500 Balance -1360 -500 Weight 108 kg Intake: Intake, IV Titration 500 Amount Sodium Chloride 0.9% 1, 500 000 ml @ 150 mls/hr IV . Q6H40M [facility] Rx#:[id number] Oral 240 Output: Urine 2100 500 Other: Voiding Method Toilet Toilet External Catheter External Catheter External Catheter # Bowel Movements 1 - Exam GENERAL: The patient is alert and oriented x1 to place only, not in any acute distress. Well developed, well nourished. Obese HEENT: Pupils are round and equal. PULMONARY: No respiratory distress ABDOMEN: Soft, nontender MUSCULOSKELETAL: No joint swelling or deformity. EXTREMITIES: No cyanosis, clubbing, or pedal edema. NEUROLOGICAL: Cranial nerves are grossly intact. Mild left leg weakness and mild right upper extremity weakness. SKIN: No rashes. no petechiae. - Labs CBC & Chem 7: 01/29/25 05:41 01/29/25 05:41 Labs: Abnormal Lab Results - Last 24 Hours (Table) 01/29/25 01/29/25 Range/Units 05:41 05:41 WBC 11.7 H (3.8-10.6) k/uL MCHC 30.9 L (31.0-37.0) g/dL Sodium 136 L (137-145) mmol/L Potassium 3.4 L (3.5-5.1) mmol/L BUN 5 L (7-17) mg/dL AST 207 H (14-36) U/L ALT 68 H (4-34) U/L Creatine Kinase 7985 H* (30-135) U/L Microbiology - Last 24 Hours (Table) 01/25/25 17:12 Urine Culture - Final Urine,Voided Klebsiella pneumoniae 01/25/25 17:59 Blood Culture Gram Stain - Final Blood Blood Culture - Final Staphylococcus epidermidis Molecular ID Assessment and Plan Assessment: Right internal carotid artery stenosis measuring 50% at the bulb on CT, 50 to 69% on imaging ultrasound Rhabdomyolysis secondary to fall Acute UTI Bacteremia versus contamination Plan: Continue with plan for outpatient, await improvement of the patient, doubt symptomatic carotid given overall history. Unfortunately unable to perform MRI. Will continue to follow. Continue medications as ordered
--- NOTE | 2025-01-29 14:28 | P.PN ---
Subjective Progress Note Date: 01/28/25 Principal diagnosis: Reason for follow-up is UTI and positive blood culture Patient is a 74-year-old female with a past medical history significant for Coronary Artery Disease (CAD), Chest Pain / Angina, CVA/TIA, Hyperlipidemia, Hypertension, Myocardial Infarction (UT), Osteoarthritis (OA), patient has been brought to the hospital after the patient was found to be on the floor there was concern for mental status change low-grade fever positive UA and concern for symptomatic UTI prompting this consultation. On today's evaluation that is 01/28/2025, patient did not have any fever and denies any chills, patient is breathing comfortably on room air, patient with no chest pain or cough patient did not have any abdominal pain nausea vomiting or any loose stools. Patient white count is down to 12.7, creatinine 0.64 CK still elevated though trending down urine is growing gram-negative blood culture with staph epi, ultrasound abdominal with postcholecystectomy changes Objective - Vital Signs Vital signs: Vital Signs Temp 98.0 F 01/28/25 08:20 Pulse 68 01/28/25 12:00 Resp 18 01/28/25 12:00 BP 162/70 01/28/25 12:00 Pulse Ox 98 01/28/25 12:00 FiO2 Intake & Output 01/27/25 01/28/25 01/28/25 18:59 06:59 18:59 Intake Total 360 500 Output Total 250 1350 Balance 110 -850 Weight 108.5 kg Intake: Intake, IV Titration 500 Amount Sodium Chloride 0.9% 1, 500 000 ml @ 150 mls/hr IV . Q6H40M [facility] Rx#:[id number] Oral 360 0 Output: Urine 250 1350 Other: Voiding Method External Catheter Toilet Toilet Diaper Diaper # Voids 1 1 # Bowel Movements 1 - Exam GENERAL DESCRIPTION: An elderly female lying in bed in no distress RESPIRATORY SYSTEM: Unlabored breathing , decreased breath sounds at bases HEART: S1 S2 regular rate and rhythm , ABDOMEN: Soft , no tenderness EXTREMITIES: No edema feet - Labs CBC & Chem 7: 01/29/25 05:41 01/29/25 05:41 Labs: Abnormal Lab Results - Last 24 Hours (Table) 01/27/25 01/28/25 01/28/25 Range/Units 06:24 05:58 05:58 WBC 12.7 H (3.8-10.6) k/uL MCHC 30.7 L (31.0-37.0) g/dL Neutrophils # 8.3 H (1.3-7.7) k/uL Sodium 136 L (137-145) mmol/L Glucose 109 H (74-99) mg/dL Lactate Dehydrogenase 264 H (120-246) U/L Creatine Kinase 10034 H* (30-135) U/L Microbiology - Last 24 Hours (Table) 01/25/25 17:12 Urine Culture - Final Urine,Voided Klebsiella pneumoniae 01/25/25 17:59 Blood Culture Gram Stain - Final Blood Blood Culture - Final Staphylococcus epidermidis Molecular ID Assessment and Plan (1) Positive blood culture Current Visit: Yes Status: Acute Code(s): R78.81 - BACTEREMIA SNOMED Code(s): 476414234 (2) UTI (urinary tract infection) Current Visit: Yes Status: Acute Code(s): N39.0 - URINARY TRACT INFECTION, SITE NOT SPECIFIED SNOMED Code(s): 75820793 (3) Leukocytosis Current Visit: Yes Status: Acute Code(s): D72.829 - ELEVATED WHITE BLOOD CELL COUNT, UNSPECIFIED SNOMED Code(s): 858160930 Plan: 1patient did have a positive blood culture with staph epi which is more likely skin contamination rather than true pathogen however will repeat blood culture mention evidence of any persistent bacteremia hold on adding vancomycin 2patient also have elevated white count source possibly urinary with urine currently growing gram-negative, ultrasound abdomen shows postcholecystectomy changes 3the patient white count trending down to continue with Rocephin while waiting for the culture to finalize Dictation was produced using [employer] dictation software. please excuse any grammatical, word or spelling errors. Time with Patient: Less than 30
--- NOTE | 2025-01-29 14:29 | P.PN ---
Subjective Progress Note Date: 01/29/25 Principal diagnosis: Reason for follow-up is UTI and positive blood culture Patient is a 74-year-old female with a past medical history significant for Coronary Artery Disease (CAD), Chest Pain / Angina, CVA/TIA, Hyperlipidemia, Hypertension, Myocardial Infarction (MS), Osteoarthritis (OA), patient has been brought to the hospital after the patient was found to be on the floor there was concern for mental status change low-grade fever positive UA and concern for symptomatic UTI prompting this consultation. On today's evaluation that is 01/29/2025, Patient is afebrile patient is currently on room air and he is breathing comfortably patient has just received some medication to calm her down as reported by the sitter at the bedside and currently sleepy no vomiting or diarrhea has been reported. Patient white count is down to 11.7, creatinine 0.60 blood culture with staph epi urine is growing Klebsiella pneumoniae sensitive to ceftriaxone Objective - Vital Signs Vital signs: Vital Signs Temp 98.2 F 01/29/25 08:00 Pulse 60 01/29/25 12:00 Resp 18 01/29/25 12:00 BP 130/70 01/29/25 12:00 Pulse Ox 96 01/29/25 12:00 FiO2 Intake & Output 01/28/25 01/29/25 01/29/25 18:59 06:59 18:59 Intake Total 740 Output Total 2100 500 Balance -1360 -500 Weight 108 kg Intake: Intake, IV Titration 500 Amount Sodium Chloride 0.9% 1, 500 000 ml @ 150 mls/hr IV . Q6H40M [facility] Rx#:[id number] Oral 240 Output: Urine 2100 500 Other: Voiding Method Toilet Toilet External Catheter External Catheter External Catheter # Bowel Movements 1 - Exam Elderly female lying in bed Unlabored breathing Sleepy in no distress - Labs CBC & Chem 7: 01/29/25 05:41 01/29/25 05:41 Labs: Abnormal Lab Results - Last 24 Hours (Table) 01/29/25 01/29/25 Range/Units 05:41 05:41 WBC 11.7 H (3.8-10.6) k/uL MCHC 30.9 L (31.0-37.0) g/dL Sodium 136 L (137-145) mmol/L Potassium 3.4 L (3.5-5.1) mmol/L BUN 5 L (7-17) mg/dL AST 207 H (14-36) U/L ALT 68 H (4-34) U/L Creatine Kinase 7985 H* (30-135) U/L Microbiology - Last 24 Hours (Table) 01/25/25 17:12 Urine Culture - Final Urine,Voided Klebsiella pneumoniae 01/25/25 17:59 Blood Culture Gram Stain - Final Blood Blood Culture - Final Staphylococcus epidermidis Molecular ID Assessment and Plan (1) Positive blood culture Current Visit: Yes Status: Acute Code(s): R78.81 - BACTEREMIA SNOMED Code(s): 116934475 (2) UTI (urinary tract infection) Current Visit: Yes Status: Acute Code(s): N39.0 - URINARY TRACT INFECTION, SITE NOT SPECIFIED SNOMED Code(s): 17217174 (3) Leukocytosis Current Visit: Yes Status: Acute Code(s): D72.829 - ELEVATED WHITE BLOOD CELL COUNT, UNSPECIFIED SNOMED Code(s): 444563594 Plan: 1patient did have a positive blood culture with staph epi which is more likely skin contamination rather than true pathogen however will repeat blood culture mention evidence of any persistent bacteremia hold on adding vancomycin 2patient also have elevated white count source possibly urinary with urine currently growing gram-negative, ultrasound abdomen shows postcholecystectomy changes 3the patient white count trending down to continue with Rocephin while waiting for the culture to finalize Dictation was produced using [employer] dictation software. please excuse any grammatical, word or spelling errors. Time with Patient: Less than 30
--- NOTE | 2025-01-29 14:41 | P.PN ---
Subjective Progress Note Date: 01/29/25 Principal diagnosis: Interval History: This is a pleasant 74 years old female who presents for a fall. Her neighbor called EMS for her. Also her used to take care of her but he went to prison yesterday and he cannot take care of her anymore. And neighbor found her on the floor. As per patient the neighbor was noticing that she was not acting right lately and she looked weird. Patient states she felt few times about 6-7 times over the last 1 to 2 weeks she is falling about 3 times per week. She reports some diarrhea for about 1 to 2 weeks but no abdominal pain or v omiting. She denies specific symptoms for me like dysuria or urgency she denies chest pain or dyspnea but she has chronic cough with no phlegm. She denies headache dizziness. She had called recently with sneezing Currently she complains from abdominal pain about 2 to 2 months mild in the epigastric area. She has also left hip pain more than 1 month ago. Her right arm feels weak for about 2 months and her left leg feels weak for about 2-1/2 months Patient is afebrile She is tachycardic with heart rate 1 26-114 Blood pressure is acceptable She has leukocytosis of 26.9, baseline about 10-19. Liver enzymes mildly elevated. Rest of CBC, BMP, LFT were unremarkable Urine analysis is highly suspicious for infection. Troponin is negative at 0.03. Lactic acid elevated 5.1 Creatinine kinase elevated 2105 Alcohol level is less than 10 Pelvic x-ray is negative. Chest x-ray showing no acute process CT of the head and neck is negative for acute process. 01/23 Patient is more awake, still little bit confused and to the surrounding She denies any pain, she is asking if she can go home today. She complains from dysuria and Deal catheter in place. Urine culture is pending and currently on Rocephin. Renal ultrasound showing no hydronephrosis Patient mentation slightly improved. However she still complains from weakness in her both right upper extremity and left lower extremities. Patient when I asked her today the duration she states about a year, although yesterday she mentioned 2 months and 2 months and a half. Then patient states she is not sure. Also complains from some tingling in her both fingers and toes on both sides. No headache dizziness blurred vision or slurred speech. She remains on IV fluid normal saline 100 mL/h. Creatinine kinase looks the same to 287. Liver enzymes only slightly better. Leukocytosis significantly improved down to 17 which is close to her baseline. 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 However she still have generalized weakness. She still have weakness in the right upper extremity with limitation in moving her arm above her head. Little discomfort in her right shoulder. Will check shoulder and cervical spine chest x-ray.. Also she is complaining from left lower leg weakness. Patient was little bit inconsistent in her history, initially said that this is for 2 months, then yesterday said it is for 1 year and today she said it has been going on for 3 weeks. However patient is better historian today. No abdominal pain suprapubic pain and tenderness. Blood culture was positive with Staph epidermidis. This could be contamination. Patient already on ceftriaxone. Will consult infectious disease team. Creatinine kinase still elevated to 5.5. Rest of BMP and magnesium are within the reference range. Rest of labs pending Urine cultures growing gram-negative bacilli Carotid Doppler: Moderate narrowing of the right internal carotid artery between 50 and 69%. Mild narrowing of the left internal carotid artery of less than 50%. There may be some focal stenosis of the right carotid bulb with mild elevated velocity of 216 cm per S consider additional workup 01/28--- patient was seen and examined today. Mentation is better as compared to yesterday. Vascular surgery evaluated the patient, CT angio showed 50% right ICA stenosis, vascular surgery recommended conservative treatment, outpatient follow-up. Remains on Rocephin for UTI. PT/OT/MAINTENANCE PARTS TECHNICIAN consulted. MRI brainshowed subtle hyperdense foci in right basal ganglia, right rubi radiator, could be intraparenchymal tiny hemorrhage versus calcification. Neurology consulted. CT lumbar spine showed mild to moderate degenerative disc disease. CPK is trending up, statin has been held since yesterday, nephrology following, increased IV fluids. Renal function stable. 01/29--patient was seen and examined today. Sitter at bedside. Patient is confused. Patient had hallucinations overnight and in the morning. No neurodeficits. Patient remains on Rocephin. Repeat blood cultures per infectious disease. Staphylococcus epi likely contaminant. Vascular surgery following for carotid artery stenosis, recommended outpatient follow-up. CPK trending down, nephrology following, recommended to continue IV fluids. Assessment and plan: Acute urinary tract infection Sepsis with leukocytosis and tachycardia recurrent falls: Rhabdomyolysis--traumatic, secondary to recurrent falls Bacteremia with Staph epidermidis, likely contamination Right internal carotid artery stenosis between 50 to 69% with focal stenosis of the right carotid bulb Weakness and distal toes/fingers numbness of both right upper extremity and left lower extremity, looks chronic but patient is inconsistent Forgetfulness possible of elements of vascular dementia and Alzheimer dementia, needs evaluation as an outpatient Lactic acidemia, improved Hypertension urgency Leukocytosis on chronic problem of leukocytosis Toxic metabolic encephalopathy Weakness of the right upper extremity and left upper extremity. Could be secondary to fall. Rule out joint abnormality, dislocation or fracture. Consider central causes Plan: Continue with ceftriaxone Urine culture-Klebsiella- IV fluids. Ultrasound of the kidney is reviewed Monitor CPK Nephrology team consulted, rhabdomyolysis likely secondary to recurrent falls, on IV fluids, hold statin. Continue with aspirin Hold statin. Neurology consulted--MRI brain showed right basal ganglia, right rubi radiator hyperdense foci, could be tiny intraparenchymal hemorrhage versus calcification, on nonspecific white matter changes. Neuro recommended aspirin, outpatient EMG and NCT, EEG. CT angio neck showed 50% stenosis of right ICA, no significant stenosis of left ICA. CT lumbar spine showed no acute fracture, mild to moderate multilevel degenerative disc disease. Right shoulder and cervical spine x-ray reviewed Pain management consulted DVT prophylaxis: Subcutaneous heparin Disposition: PT/OT consult, MAINTENANCE PARTS TECHNICIAN consult Monitor vital signs and labs Labs and medication were reviewed. Continue same treatment. Further recommendations as per clinical course of the patient PHYSICAL EXAMINATION: GENERAL: NAD HEENT: EOMI, Sclerae anicteric, Moist Mucous membranes Neck: Supple, Non tender, No JVD PULMONARY: Equal breath souds B/L, No wheezing, No crackles. CARDIOVASCULAR: S1, S2 present. No murmurs, rubs, or gallops. ABDOMEN: Soft, nontender, nondistended, normoactive bowel sounds. No guarding or rebound tenderness. MUSCULOSKELETAL: No edema, No cyanosis. No clubbing. Normal ROM. Intact peripheral pulses. NEUROLOGICAL: CN 2-12 grossly intact. No FND Skin: No Rash REVIEW OF SYSTEMS: Limited review of system due to confusion Dictation was produced using [employer] dictation software. please excuse any grammatical, word or spelling errors. Objective - Vital Signs Vital signs: Vital Signs Temp 98.2 F 01/29/25 08:00 Pulse 60 01/29/25 14:00 Resp 18 01/29/25 14:00 BP 130/70 01/29/25 12:00 Pulse Ox 96 01/29/25 12:00 FiO2 Intake & Output 01/28/25 01/29/25 01/29/25 18:59 06:59 18:59 Intake Total 740 Output Total 2100 500 Balance -1360 -500 Weight 108 kg Intake: Intake, IV Titration 500 Amount Sodium Chloride 0.9% 1, 500 000 ml @ 150 mls/hr IV . Q6H40M [facility] Rx#:[id number] Oral 240 Output: Urine 2100 500 Other: Voiding Method Toilet Toilet External Catheter External Catheter External Catheter # Bowel Movements 1 - Labs CBC & Chem 7: 01/29/25 05:41 01/29/25 05:41 Labs: Abnormal Lab Results - Last 24 Hours (Table) 01/29/25 01/29/25 Range/Units 05:41 05:41 WBC 11.7 H (3.8-10.6) k/uL MCHC 30.9 L (31.0-37.0) g/dL Sodium 136 L (137-145) mmol/L Potassium 3.4 L (3.5-5.1) mmol/L BUN 5 L (7-17) mg/dL AST 207 H (14-36) U/L ALT 68 H (4-34) U/L Creatine Kinase 7985 H* (30-135) U/L Microbiology - Last 24 Hours (Table) 01/25/25 17:12 Urine Culture - Final Urine,Voided Klebsiella pneumoniae 01/25/25 17:59 Blood Culture Gram Stain - Final Blood Blood Culture - Final Staphylococcus epidermidis Molecular ID
[2025-01-30 07:20] LABS: African American GFR (CKD) >90 (>60 ml/min/1.73 sqM); Anion Gap 8 mmol/L; Blood Urea Nitrogen 7 mg/dL (7-17); Calcium 8.6 mg/dL (8.4-10.2); Carbon Dioxide 21 mmol/L (22-30); Chloride 107 mmol/L (98-107); Glucose 99 mg/dL (74-99); Non-African American GFR(CKD) 89 (>60 ml/min/1.73 sqM); Sodium 136 mmol/L (137-145)
[2025-01-30 07:42] LABS: Creatine Kinase 2677 U/L (30-135)
--- NOTE | 2025-01-30 10:37 | P.PN ---
Subjective Patient is seen for follow-up for rhabdomyolysis. Maintained on IV fluids CK is down to 2677. Serum creatinine 0.63 mg/dL. No significant complaints today. Objective - Vital Signs Vital signs: Vital Signs Temp 98.2 F 01/30/25 08:05 Pulse 76 01/30/25 08:05 Resp 20 01/30/25 08:05 BP 148/68 01/30/25 08:05 Pulse Ox 99 01/30/25 08:05 FiO2 Intake & Output 01/29/25 01/30/25 01/30/25 18:59 06:59 18:59 Intake Total 300 240 Output Total 200 1050 400 Balance -200 -750 -160 Weight 111 kg Intake: Intake, IV Titration 300 Amount Sodium Chloride 0.9% 1, 300 000 ml @ 150 mls/hr IV . Q6H40M [facility] Rx#:[id number] Oral 240 Output: Urine 200 1050 400 Other: Voiding Method External Catheter External Catheter External Catheter # Voids 1 - Exam Patient is awake, comfortable, no acute distress Examination of the heart S1 and S2 Examination of the lungs bilateral breath sounds are heard Abdomen is soft obese Examination of lower extremity shows edema 1+ bilaterally - Labs CBC & Chem 7: 01/29/25 05:41 01/30/25 05:43 Labs: Abnormal Lab Results - Last 24 Hours (Table) 01/27/25 01/30/25 Range/Units 06:24 05:43 Sodium 136 L (137-145) mmol/L Carbon Dioxide 21 L (22-30) mmol/L Creatine Kinase 2677 H* (30-135) U/L Myoglobin 992 H (<=58) ng/mL Microbiology - Last 24 Hours (Table) 01/28/25 05:58 Blood Culture - Preliminary Blood Assessment and Plan Assessment: 1. Rhabdomyolysis secondary to fall/immobility. Was also on Lipitor. CK level now trending down -2677 today. Serum creatinine 0.6 mg/dL 2. Benign hypertension. 3. Klebsiella UTI maintained on antibiotics. 4. Hypokalemia from poor intake. Plan: Decrease IV fluids Maintain adequate oral intake Continue to monitor electrolytes
[2025-01-30] MEDS: SODIUM CHLORIDE 0.9% 1,000 ML IV SCH (11:44)
--- NOTE | 2025-01-30 11:54 | P.PN ---
Subjective Progress Note Date: 01/30/25 Principal diagnosis: Fall Patient is seen and examined today as a follow-up. No acute changes through the night. Working with OT and PT. No new focal deficits reported Objective - Vital Signs Vital signs: Vital Signs Temp 98.2 F 01/30/25 08:05 Pulse 76 01/30/25 08:05 Resp 20 01/30/25 08:05 BP 148/68 01/30/25 08:05 Pulse Ox 99 01/30/25 08:05 FiO2 Intake & Output 01/29/25 01/30/25 01/30/25 18:59 06:59 18:59 Intake Total 300 240 Output Total 200 1050 400 Balance -200 -750 -160 Weight 111 kg Intake: Intake, IV Titration 300 Amount Sodium Chloride 0.9% 1, 300 000 ml @ 150 mls/hr IV . Q6H40M [facility] Rx#:[id number] Oral 240 Output: Urine 200 1050 400 Other: Voiding Method External Catheter External Catheter External Catheter # Voids 1 - Exam General appearance: The patient is alert, oriented person and place, appears in no acute distress. Obese. HET: Head is normocephalic and atraumatic. Pupils are equal and reactive. Neck: Supple. Lungs: Equal expansion, normal respiratory effort. Abdomen: Soft, nondistended. Extremities: Normal skin color and turgor. No cyanosis or clubbing. Neurological: Bilateral upper and lower extremity weakness. - Labs CBC & Chem 7: 01/29/25 05:41 01/30/25 05:43 Labs: Abnormal Lab Results - Last 24 Hours (Table) 01/27/25 01/30/25 Range/Units 06:24 05:43 Sodium 136 L (137-145) mmol/L Carbon Dioxide 21 L (22-30) mmol/L Creatine Kinase 2677 H* (30-135) U/L Myoglobin 992 H (<=58) ng/mL Microbiology - Last 24 Hours (Table) 01/28/25 05:58 Blood Culture - Preliminary Blood Assessment and Plan Assessment: 1. Right internal carotid artery stenosis measuring 50% at the carotid bulb on CTA, 50 to 69% on imaging of ultrasound 2. Rhabdomyolysis secondary to fall 3. Acute UTI 4. Bacteremia versus contamination Plan: 1. Continue with PT and OT 2. Continue with recommendations from neurology 3. No plans for any vascular surgical intervention at this time, follow-up outpatient for carotid surveillance 4. Medical management per primary medical team Thank you for this consultation, we will be on standby if further needed The impression and plan of care has been dictated as directed. Dr. Loo I performed a history and examination of this patient, discussed the same with the dictator. I agree with the dictator's note ,documented as a scribe. Any additional findings or plans will be noted.
[2025-01-30 12:37] LABS: Aldolase 10.6 U/L (1.2-7.6)
--- NOTE | 2025-01-30 13:25 | P.PN ---
Subjective Progress Note Date: 01/29/25 01/29/2025: Patient was seen for a follow-up. Patient is laying in the bed. Patient's was also present by the bedside. Patient still has somewhat slow mentation but better than yesterday. Patient denies any headache. Patient is pleasant, making jokes with her , although still somewhat encephalopathic/confused as per examination below. 01/28/2025: Patient was initially seen by Dr. Benjamin Bello. Please refer to his notes for details. Patient is a 74-year-old female with rhabdomyolysis and was found on the ground by the neighbor. She was on statins at home. Unsure if statin led to rhabdomyolysis that led to fall or vice versa. Patient has old right shoulder injury and left hip injury with deficit but? Worsening left lower weakness. Primary was concerned about CVA. Dr. Bello ordered repeat CT head, consulted vascular for right carotid stenosis. Patient was seen for a follow-up. Patient's and a sitter were present. Patient has been believes that she is doing better. She walked with her walker and 2 people assist. Patient has has history of left hip replacement in the past. Patient has history of 1 rotator cuff surgery also. Per nurse report, she has not slept at all last night. She is having some hallucinations, seeing ants, dogs under the bed. Some of the workup during this hospital visit consisted of: Patient is afebrile White blood cell is high as 26.9 thousand repeat at 17.2 CK level is 21,000 and most recent 1 is 25,000 AST is 94 and ALT is 44 Ammonia send Plasma lactic acid venous 5.1 and repeat is 2.6. u/a: leukocyte esterase is large, nitrite is postive Urine culture: Gram neg bacilli, coag neg staph CT of the head is reported as no acute bleed or mass effect. Mild to moderate senescent changes. Personally reviewed the CT of the head and I agree. Has an old lacune over the right basal ganglia CT cervical spine no acute trauma. Multilevel degenerative disease and osteoarthritis as described above. Car duplex is reported as moderate narrowing of the right internal carotid a rtery 50 to 69%. Mild narrowing of the left internal carotid artery less than 50%. Difficulty with examination due to [place] and positioning of the vessel. There may be some focal stenosis of the right carotid bulb with a marked elevated velocity of 216 cm over second. Condition additional workup. 2D echo was reported as technically difficult study. Ejection fraction 55 to 60%. No obvious regional wall motion abnormality. No significant valvular dysfunction. Objective - Vital Signs Vital signs: Vital Signs Temp 98.2 F 01/29/25 08:00 Pulse 60 01/29/25 14:00 Resp 18 01/29/25 14:00 BP 130/70 01/29/25 12:00 Pulse Ox 96 01/29/25 12:00 FiO2 Intake & Output 01/28/25 01/29/25 01/29/25 18:59 06:59 18:59 Intake Total 740 Output Total 2100 500 200 Balance -1360 -500 -200 Weight 108 kg Intake: Intake, IV Titration 500 Amount Sodium Chloride 0.9% 1, 500 000 ml @ 150 mls/hr IV . Q6H40M [facility] Rx#:[id number] Oral 240 Output: Urine 2100 500 200 Other: Voiding Method Toilet Toilet External Catheter External Catheter External Catheter # Bowel Movements 1 - Exam Patient is an elderly female, who is still somewhat encephalopathic, slow mentation and processing time. She is hard of hearing. Patient states it is the month of January and the year is 2074. She could not tell what building is at although when given choices, said was [facility]. Patient knows that she is in [place] in [place]. Her speech is clear with no aphasia or dysarthria. On cranial examination pupils are equal, round and reacting, visual vazquez were somewhat difficult to assess, because of decreased attention. Face is symmetric. Tongue protrudes to midline. On muscle strength testing, there is no pronator drift and the strength is normal in arms at the deltoid, biceps, triceps and arts [employer] dean bilaterally. In the lower limb, her left hip flexion is weak 4+ with normal right hip flexion 5. Ankle dorsiflexion are normal. Patient has very mild tremors of outstretched h and. Patient has peripheral edema. - Labs CBC & Chem 7: 01/29/25 05:41 01/30/25 05:43 Labs: Abnormal Lab Results - Last 24 Hours (Table) 01/29/25 01/29/25 Range/Units 05:41 05:41 WBC 11.7 H (3.8-10.6) k/uL MCHC 30.9 L (31.0-37.0) g/dL Sodium 136 L (137-145) mmol/L Potassium 3.4 L (3.5-5.1) mmol/L BUN 5 L (7-17) mg/dL AST 207 H (14-36) U/L ALT 68 H (4-34) U/L Creatine Kinase 7985 H* (30-135) U/L Microbiology - Last 24 Hours (Table) 01/25/25 17:12 Urine Culture - Final Urine,Voided Klebsiella pneumoniae 01/25/25 17:59 Blood Culture Gram Stain - Final Blood Blood Culture - Final Staphylococcus epidermidis Molecular ID Assessment and Plan Assessment: This is a 74-year-old woman who presents to the emergency department since she was found on the ground by her neighbor. It seems that she has been having recurrent falls. She is on statin at home and has rhabdomyolysis as well as positive urinary tract infection. Primary team is about a stroke because of right upper extremity weakness as well as left lower extremity weakness. According the patient she has been having recurrent falls in the last 1 to 2 weeks. She has right upper extremity shoulder injury as well as left hip fracture and had replacement bilaterally at least 3 to 4 years ago with residual weakness per the . Rhabdomyolysis unsure if it is due to statin or the fall led to the rhabdomyol ysis Acute urinary tract infection Right upper extremity proximal weakness and left lower extremity proximal weakness per the is baseline due to right shoulder injury and left hip injury. Slight transaminitis Right internal carotid artery stenosis of 50 to 69% on carotid duplex History of 2 strokes according to the patient in her 30s. On [address] of the head it seems that she has lacunar stroke over the right basal ganglia. Pacemaker Plan: Unable to obtain MRI of the brain because of the pacemaker Repeat CT head, on 01/28/2025 revealed stable hyperdense foci within the right basal ganglia and right rubi radiata from prior CT. May represent tiny intraparenchymal hemorrhage versus calcification. Consider further evaluation with MRI. Nonspecific white matter changes, likely secondary to chronic small vessel ischemic disease. I personally reviewed CT head, agree with the findings. CT lumbar spine showed no evidence for acute spinal fracture. Mild to moderate multilevel degenerative disc disease and facet arthropathy. Patient has carotid stenosis of 50 to 69% on the right with some focal stenosis of the right carotid bulb with markedly elevated velocity. CTA of neck 01/28/2025 revealed approximately 50% stenosis of the origin of the right ICA. No significant stenosis of the left ICA. Vascular surgery on board. They are recommending patient follow-up in the office outpatient. Uncertain if symptoms related to sepsis, rhabdomyolysis or carotid disease. TSH 2.64, LDH 264, aldolase and pending myoglobin for her rhabdomyolysis. Recommend holding off statin because of her rhabdomyolysis. Patient's rhabdomyolysis has much improved today, with CK 7,985 whereas it was CK 14,531 yesterday. Patient has developed delirium. Recommend EMG with nerve conduction study as an outpatient of the [facility] to assess for any myopathy. Dr. Bello ordered an EEG because of her recurrent falls to rule out any seizure or discharges which he feels is unlikely. Recommend aspirin 81 mg daily. Statins on hold because of her rhabdomyolysis PT and OT are consulted Will defer the rest of the medical management the primary and other specialist
--- NOTE | 2025-01-30 14:37 | P.PN ---
Subjective Progress Note Date: 01/30/25 Principal diagnosis: Interval History: This is a pleasant 74 years old female who presents for a fall. Her neighbor called EMS for her. Also her used to take care of her but he went to intermediate yesterday and he cannot take care of her anymore. And neighbor found her on the floor. As per patient the neighbor was noticing that she was not acting right lately and she looked weird. Patient states she felt few times about 6-7 times over the last 1 to 2 weeks she is falling about 3 times per week. She reports some diarrhea for about 1 to 2 weeks but no abdominal pain or v omiting. She denies specific symptoms for me like dysuria or urgency she denies chest pain or dyspnea but she has chronic cough with no phlegm. She denies headache dizziness. She had called recently with sneezing Currently she complains from abdominal pain about 2 to 2 months mild in the epigastric area. She has also left hip pain more than 1 month ago. Her right arm feels weak for about 2 months and her left leg feels weak for about 2-1/2 months Patient is afebrile She is tachycardic with heart rate 1 26-114 Blood pressure is acceptable She has leukocytosis of 26.9, baseline about 10-19. Liver enzymes mildly elevated. Rest of CBC, BMP, LFT were unremarkable Urine analysis is highly suspicious for infection. Troponin is negative at 0.03. Lactic acid elevated 5.1 Creatinine kinase elevated 2105 Alcohol level is less than 10 Pelvic x-ray is negative. Chest x-ray showing no acute process CT of the head and neck is negative for acute process. 01/23 Patient is more awake, still little bit confused and to the surrounding She denies any pain, she is asking if she can go home today. She complains from dysuria and Deal catheter in place. Urine culture is pending and currently on Rocephin. Renal ultrasound showing no hydronephrosis Patient mentation slightly improved. However she still complains from weakness in her both right upper extremity and left lower extremities. Patient when I asked her today the duration she states about a year, although yesterday she mentioned 2 months and 2 months and a half. Then patient states she is not sure. Also complains from some tingling in her both fingers and toes on both sides. No headache dizziness blurred vision or slurred speech. She remains on IV fluid normal saline 100 mL/h. Creatinine kinase looks the same to 287. Liver enzymes only slightly better. Leukocytosis significantly improved down to 17 which is close to her baseline. 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 However she still have generalized weakness. She still have weakness in the right upper extremity with limitation in moving her arm above her head. Little discomfort in her right shoulder. Will check shoulder and cervical spine chest x-ray.. Also she is complaining from left lower leg weakness. Patient was little bit inconsistent in her history, initially said that this is for 2 months, then yesterday said it is for 1 year and today she said it has been going on for 3 weeks. However patient is better historian today. No abdominal pain suprapubic pain and tenderness. Blood culture was positive with Staph epidermidis. This could be contamination. Patient already on ceftriaxone. Will consult infectious disease team. Creatinine kinase still elevated to 5.5. Rest of BMP and magnesium are within the reference range. Rest of labs pending Urine cultures growing gram-negative bacilli Carotid Doppler: Moderate narrowing of the right internal carotid artery between 50 and 69%. Mild narrowing of the left internal carotid artery of less than 50%. There may be some focal stenosis of the right carotid bulb with mild elevated velocity of 216 cm per S consider additional workup 01/28--- patient was seen and examined today. Mentation is better as compared to yesterday. Vascular surgery evaluated the patient, CT angio showed 50% right ICA stenosis, vascular surgery recommended conservative treatment, outpatient follow-up. Remains on Rocephin for UTI. PT/OT/DIRECTOR GENERAL consulted. MRI brainshowed subtle hyperdense foci in right basal ganglia, right rubi radiator, could be intraparenchymal tiny hemorrhage versus calcification. Neurology consulted. CT lumbar spine showed mild to moderate degenerative disc disease. CPK is trending up, statin has been held since yesterday, nephrology following, increased IV fluids. Renal function stable. 01/29--patient was seen and examined today. Sitter at bedside. Patient is confused. Patient had hallucinations overnight and in the morning. No neurodeficits. Patient remains on Rocephin. Repeat blood cultures per infectious disease. Staphylococcus epi likely contaminant. Vascular surgery following for carotid artery stenosis, recommended outpatient follow-up. CPK trending down, nephrology following, recommended to continue IV fluids. 01/30--patient was seen and examined today. Sitter at bedside. Patient still confused, had a hallucination in the morning. Afebrile, heart rate 67, respir atory rate 20, blood pressure 133/76, saturating 97% on room air. Sodium 136 potassium 4.0 chloride 107 CO2 21 BUN 7 creatinine 0.63. CPK trending down to 2677. Nephrology following, recommended to decrease IV fluids. On Rocephin for UTI. Assessment and plan: Acute urinary tract infection Sepsis with leukocytosis and tachycardia recurrent falls: Rhabdomyolysis--traumatic, secondary to recurrent falls Bacteremia with Staph epidermidis, likely contamination Right internal carotid artery stenosis between 50 to 69% with focal stenosis of the right carotid bulb Weakness and distal toes/fingers numbness of both right upper extremity and left lower extremity, looks chronic but patient is inconsistent Forgetfulness possible of elements of vascular dementia and Alzheimer dementia, needs evaluation as an outpatient Lactic acidemia, improved Hypertension urgency Leukocytosis on chronic problem of leukocytosis Toxic metabolic encephalopathy Weakness of the right upper extremity and left upper extremity. Could be secondary to fall. Rule out joint abnormality, dislocation or fracture. Consider central causes Plan: Continue with ceftriaxone Urine culture-Klebsiella- IV fluids. Ultrasound of the kidney is reviewed Monitor CPK Nephrology team consulted, rhabdomyolysis likely secondary to recurrent falls, on IV fluids, hold statin. Continue with aspirin Hold statin. Neurology consulted--MRI brain showed right basal ganglia, right rubi radiator hyperdense foci, could be tiny intraparenchymal hemorrhage versus calcification, on nonspecific white matter changes. Neuro recommended aspirin, outpatient EMG and NCT, EEG. CT angio neck showed 50% stenosis of right ICA, no significant stenosis of left ICA. CT lumbar spine showed no acute fracture, mild to moderate multilevel degenerative disc disease. Right shoulder and cervical spine x-ray reviewed Pain management consulted DVT prophylaxis: Subcutaneous heparin Disposition: PT/OT consult, DIRECTOR GENERAL consult Monitor vital signs and labs Labs and medication were reviewed. Continue same treatment. Further recommendations as per clinical course of the patient PHYSICAL EXAMINATION: GENERAL: NAD HEENT: EOMI, Sclerae anicteric, Moist Mucous membranes Neck: Supple, Non tender, No JVD PULMONARY: Equal breath souds B/L, No wheezing, No crackles. CARDIOVASCULAR: S1, S2 present. No murmurs, rubs, or gallops. ABDOMEN: Soft, nontender, nondistended, normoactive bowel sounds. No guarding or rebound tenderness. MUSCULOSKELETAL: No edema, No cyanosis. No clubbing. Normal ROM. Intact peripheral pulses. NEUROLOGICAL: CN 2-12 grossly intact. No FND Skin: No Rash REVIEW OF SYSTEMS: Limited review of system due to confusion Dictation was produced using [employer] dictation software. please excuse any grammatical, word or spelling errors. Objective - Vital Signs Vital signs: Vital Signs Temp 98.3 F 01/30/25 11:45 Pulse 67 01/30/25 13:17 Resp 20 01/30/25 11:45 BP 133/76 01/30/25 11:45 Pulse Ox 97 01/30/25 11:45 FiO2 Intake & Output 01/29/25 01/30/25 01/30/25 18:59 06:59 18:59 Intake Total 300 480 Output Total 200 1050 600 Balance -200 -750 -120 Weight 111 kg Intake: Intake, IV Titration 300 Amount Sodium Chloride 0.9% 1, 300 000 ml @ 150 mls/hr IV . Q6H40M [facility] Rx#:[id number] Oral 480 Output: Urine 200 1050 600 Other: Voiding Method External Catheter External Catheter Toilet Diaper # Voids 1 # Bowel Movements 1 - Labs CBC & Chem 7: 01/29/25 05:41 01/30/25 05:43 Labs: Abnormal Lab Results - Last 24 Hours (Table) 01/27/25 01/30/25 Range/Units 06:24 05:43 Sodium 136 L (137-145) mmol/L Carbon Dioxide 21 L (22-30) mmol/L Creatine Kinase 2677 H* (30-135) U/L Myoglobin 992 H (<=58) ng/mL Aldolase 10.6 H (1.2-7.6) U/L Microbiology - Last 24 Hours (Table) 01/28/25 05:58 Blood Culture - Preliminary Blood
--- NOTE | 2025-01-31 00:18 | EEG ---
ELECTROENCEPHALOGRAM REPORT PREAMBLE: This is a 74-year-old female with recurrent falls, rule out seizure. EEG FINDINGS: This is a 21-channel digital EEG recorded with video component, utilizing 10/20 international system with referential and bipolar montage. The recording starts and continues with the presence of diffuse moderate amplitude mixed, mostly theta, with some 3 Hz delta slowing in bihemispheric region. Background does not seem to be reactive to eye opening or closing. Photic driving response was not seen. Different stages of sleep were not seen. No focal or generalized epileptiform activity was seen. IMPRESSION: This is an abnormal EEG due to background slowing of moderate degree. This is suggestive of generalized cerebral dysfunction as can be seen with toxic metabolic encephalopathy or related to diffuse structural brain abnormality. Clinical correlation is recommended. No epileptiform activity was seen. MMODL / IJN: [id number] /
[2025-01-31 08:20] VITALS: RESP 18; TEMP 98
[2025-01-31 08:24] LABS: Basophils % (A) 0 %; Eosinophils # (A) 0.3 k/uL (0-0.7); Eosinophils % (A) 4 %; HCT 35.8 % (34.0-46.0); HGB 11.2 gm/dL (11.4-16.0); Lymphocytes # (A) 2.6 k/uL (1.0-4.8); Lymphocytes % (A) 35 %; MCH 28.4 pg (25.0-35.0); MCHC 31.3 g/dL (31.0-37.0); MCV 90.7 fL (80.0-100.0); Monocytes # (A) 0.6 k/uL (0-1.0); Monocytes % (A) 9 %; Neutrophils # (A) 3.8 k/uL (1.3-7.7); Neutrophils % (A) 51 %; Platelet Count 302 k/uL (150-450); RBC 3.94 m/uL (3.80-5.40); WBC 7.4 k/uL (3.8-10.6)
[2025-01-31 08:41] LABS: African American GFR (CKD) 89 (>60 ml/min/1.73 sqM); Anion Gap 5 mmol/L; Blood Urea Nitrogen 9 mg/dL (7-17); Calcium 8.3 mg/dL (8.4-10.2); Carbon Dioxide 24 mmol/L (22-30); Chloride 108 mmol/L (98-107); Creatine Kinase 936 U/L (30-135); Glucose 86 mg/dL (74-99); Non-African American GFR(CKD) 77 (>60 ml/min/1.73 sqM); Potassium 3.6 mmol/L (3.5-5.1); Sodium 137 mmol/L (137-145)
--- NOTE | 2025-01-31 10:27 | P.PN ---
Subjective Patient is seen for follow-up for rhabdomyolysis. Maintained on IV fluids CK is down to 936 Serum creatinine 0.7 mg/dL. No significant complaints today. Objective - Vital Signs Vital signs: Vital Signs Temp 98.0 F 01/31/25 08:00 Pulse 69 01/31/25 08:00 Resp 18 01/31/25 08:00 BP 146/83 01/31/25 08:00 Pulse Ox 97 01/31/25 08:00 FiO2 Intake & Output 01/30/25 01/31/25 01/31/25 18:59 06:59 18:59 Intake Total 720 100 240 Output Total 600 200 Balance 120 -100 240 Weight 113.5 kg Intake: Oral 720 100 240 Output: Urine 600 200 Other: Voiding Method Toilet External Catheter External Catheter Diaper # Bowel Movements 1 - Exam Patient is awake, comfortable, no acute distress Examination of the heart S1 and S2 Examination of the lungs bilateral breath sounds are heard Abdomen is soft obese Examination of lower extremity shows edema 1+ bilaterally - Labs CBC & Chem 7: 01/31/25 07:39 01/31/25 07:39 Labs: Abnormal Lab Results - Last 24 Hours (Table) 01/27/25 01/31/25 01/31/25 Range/Units 06:24 07:39 07:39 Hgb 11.2 L (11.4-16.0) gm/dL Chloride 108 H (98-107) mmol/L Calcium 8.3 L (8.4-10.2) mg/dL Creatine Kinase 936 H (30-135) U/L Aldolase 10.6 H (1.2-7.6) U/L Microbiology - Last 24 Hours (Table) 01/28/25 05:58 Blood Culture - Preliminary Blood Assessment and Plan Assessment: 1. Rhabdomyolysis secondary to fall/immobility. Was also on Lipitor. CK level now trending down -936 today. Serum creatinine 0.6 mg/dL 2. Benign hypertension. 3. Klebsiella UTI maintained on antibiotics. 4. Hypokalemia from poor intake. Plan: DC IV fluids Maintain adequate oral intake Continue to monitor electrolytes
[2025-01-31 11:08] LABS: Glucose,Whole Blood 104 mg/dL (70-110)
--- NOTE | 2025-01-31 11:26 | P.PN ---
Subjective Progress Note Date: 01/30/25 01/30/2025: Patient was seen for a follow-up. Patient is sleeping at this time. Per nursing and sitter report, patient is alert oriented x 1, hallucinates. She was seeing people. She speaks but mumbles, does not make sense. Some garbled speech. She was seeing dogs. She apparently does not want to go home. Patient sleeping at this time. On waking up, offers no complaints. Patient mumbles, with some garbled speech. 01/29/2025: Patient was seen for a follow-up. Patient is laying in the bed. Patient's was also present by the bedside. Patient still has somewhat slow mentation but better than yesterday. Patient denies any headache. Patient is pleasant, making jokes with her , although still somewhat encephalopathic/confused as per examination below. 01/28/2025: Patient was initially seen by Dr. Benjamin Bello. Please refer to his notes for details. Patient is a 74-year-old female with rhabdomyolysis and was found on the ground by the neighbor. She was on statins at home. Unsure if statin led to rhabdomyolysis that led to fall or vice versa. Patient has old right shoulder injury and left hip injury with deficit but? Worsening left lower weakness. Primary was concerned about CVA. Dr. Bello ordered repeat CT head, consulted vascular for right carotid stenosis. Patient was seen for a follow-up. Patient's and a sitter were present. Patient has been believes that she is doing better. She walked with her walker and 2 people assist. Patient has has history of left hip replacement in the past. Patient has history of 1 rotator cuff surgery also. Per nurse report, she has not slept at all last night. She is having some hallucinations, seeing ants, dogs under the bed. Some of the workup during this hospital visit consisted of: Patient is afebrile White blood cell is high as 26.9 thousand repeat at 17.2 CK level is 21,000 and most recent 1 is 25,000 AST is 94 and ALT is 44 Ammonia send Plasma lactic acid venous 5.1 and repeat is 2.6. u/a: leukocyte esterase is large, nitrite is postive Urine culture: Gram neg bacilli, coag neg staph CT of the head is reported as no acute bleed or mass effect. Mild to moderate senescent changes. Personally reviewed the CT of the head and I agree. Has an old lacune over the right basal ganglia CT cervical spine no acute trauma. Multilevel degenerative disease and osteoarthritis as described above. Car duplex is reported as moderate narrowing of the right internal carotid artery 50 to 69%. Mild narrowing of the left internal carotid artery less than 50%. Difficulty with examination due to [place] and positioning of the vessel. There may be some focal stenosis of the right carotid bulb with a marked elevated velocity of 216 cm over second. Condition additional workup. 2D echo was reported as technically difficult study. Ejection fraction 55 to 60%. No obvious regional wall motion abnormality. No significant valvular dysfunction. Objective - Vital Signs Vital signs: Vital Signs Temp 98.0 F 01/30/25 15:00 Pulse 75 01/30/25 15:00 Resp 18 01/30/25 15:00 BP 139/80 01/30/25 15:00 Pulse Ox 98 01/30/25 15:00 FiO2 Intake & Output 01/29/25 01/30/25 01/30/25 18:59 06:59 18:59 Intake Total 300 480 Output Total 200 1050 600 Balance -200 -750 -120 Weight 111 kg Intake: Intake, IV Titration 300 Amount Sodium Chloride 0.9% 1, 300 000 ml @ 150 mls/hr IV . Q6H40M [facility] Rx#:[id number] Oral 480 Output: Urine 200 1050 600 Other: Voiding Method External Catheter External Catheter Toilet Diaper # Voids 1 # Bowel Movements 1 - Exam Patient is an elderly female, who is in no acute distress. Patient continues to be encephalopathic. Patient could not tell the month or the year. She does not know what city she is currently in or or what city she lives in. She knows that she is in [place]. Her speech is somewhat difficult to understand partly from dry mouth, and some form slurring. Patient is hard of hearing. She has very slow latency time to answer questions. On cranial examination pupils are equal, round and reacting, visual vazquez were somewhat difficult to assess, because of decreased attention. Face is symmetric. Tongue protrudes to midline. On muscle strength testing, there is no pronator drift and the strength is normal in arms at the deltoid, biceps, triceps and injector assembler bilaterally. In the lower limb, her left hip flexion is weak 4+ with normal right hip flexion 5. Ankle dorsiflexion are normal. Patient has very mild tremors of outstretched hand. Patient has peripheral edema. - Labs CBC & Chem 7: 01/31/25 07:39 01/31/25 07:39 Labs: Abnormal Lab Results - Last 24 Hours (Table) 01/27/25 01/30/25 Range/Units 06:24 05:43 Sodium 136 L (137-145) mmol/L Carbon Dioxide 21 L (22-30) mmol/L Creatine Kinase 2677 H* (30-135) U/L Myoglobin 992 H (<=58) ng/mL Aldolase 10.6 H (1.2-7.6) U/L Microbiology - Last 24 Hours (Table) 01/28/25 05:58 Blood Culture - Preliminary Blood Assessment and Plan Assessment: This is a 74-year-old woman who presents to the emergency department since she was found on the ground by her neighbor. It seems that she has been having recurrent falls. She is on statin at home and has rhabdomyolysis as well as positive urinary tract infection. Primary team is about a stroke because of right upper extremity weakness as well as left lower extremity weakness. According the patient she has been having recurrent falls in the last 1 to 2 weeks. She has right upper extremity shoulder injury as well as left hip fracture and had replacement bilaterally at least 3 to 4 years ago with residual weakness per the . Altered mental status, likely due to toxic metabolic encephalopathy. Rhabdomyolysis unsure if it is due to statin or the fall led to the rhabdomyolysis Acute urinary tract infection, due to Klebsiella, on ceftriaxone Right upper extremity proximal weakness and left lower extremity proximal weakness per the is baseline due to right shoulder injury and left hip injury. Slight transaminitis Right internal carotid artery stenosis of 50 to 69% on carotid duplex History of 2 strokes according to the patient in her 30s. On [address] of the head it seems that she has lacunar stroke over the right basal ganglia. Pacemaker Plan: Patient continues to be encephalopathic. EEG was performed, which was abnormal due to background slowing of moderate degr ee. This suggestive of generalized cerebral dysfunction as can be seen with toxic metabolic encephalopathy or related to diffuse structural brain abnormality. Clinical correlation is recommended. No epileptiform activity was seen. Unable to obtain MRI of the brain because of the pacemaker Repeat CT head, on 01/28/2025 revealed stable hyperdense foci within the right basal ganglia and right rubi radiata from prior CT. May represent tiny intraparenchymal hemorrhage versus calcification. Consider further evaluation with MRI. Nonspecific white matter changes, likely secondary to chronic small vessel ischemic disease. I personally reviewed CT head, agree with the findings. CT lumbar spine showed no evidence for acute spinal fracture. Mild to moderate multilevel degenerative disc disease and facet arthropathy. Patient has carotid stenosis of 50 to 69% on the right with some focal stenosis of the right carotid bulb with markedly elevated velocity. CTA of neck 01/28/2025 revealed approximately 50% stenosis of the origin of the right ICA. No significant stenosis of the left ICA. Vascular surgery on board. They are recommending patient follow-up in the office outpatient. Uncertain if symptoms related to sepsis, rhabdomyolysis or carotid disease. TSH 2.64, LDH 264, aldolase 10.6/7.6. Myoglobin 992 (<= 58). Recommend holding off statin because of her rhabdomyolysis. Patient's rhabdomyolysis has much improved today, with CK 2677, and the maximum was 14,531, on 01/28/2025. Patient has developed delirium. Ammonia is normal. Check B12, folate. Recommend EMG with nerve conduction study as an outpatient of the lowers to assess for any myopathy. Recommend aspirin 81 mg daily. Statins on hold because of her rhabdomyolysis PT and OT are consulted Will defer the rest of the medical management the primary and other specialist
--- NOTE | 2025-01-31 13:06 | P.PN ---
Subjective Progress Note Date: 01/30/25 Principal diagnosis: Reason for follow-up is UTI and positive blood culture Patient is a 74-year-old female with a past medical history significant for Coronary Artery Disease (CAD), Chest Pain / Angina, CVA/TIA, Hyperlipidemia, Hypertension, Myocardial Infarction ([place]), Osteoarthritis (OA), patient has been brought to the hospital after the patient was found to be on the floor there was concern for mental status change low-grade fever positive UA and concern for symptomatic UTI prompting this consultation. On today's evaluation that is 01/30/2025, patient has been afebrile, patient is breathing comfortably and is currently on room air patient is pleasantly conf used and not a very good historian no vomiting or diarrhea reported by the sitter at the bedside. The patient did have a creatinine 0.63 Objective - Vital Signs Vital signs: Vital Signs Temp 98.3 F 01/30/25 11:45 Pulse 67 01/30/25 11:45 Resp 20 01/30/25 11:45 BP 133/76 01/30/25 11:45 Pulse Ox 97 01/30/25 11:45 FiO2 Intake & Output 01/29/25 01/30/25 01/30/25 18:59 06:59 18:59 Intake Total 300 240 Output Total 200 1050 400 Balance -200 -750 -160 Weight 111 kg Intake: Intake, IV Titration 300 Amount Sodium Chloride 0.9% 1, 300 000 ml @ 150 mls/hr IV . Q6H40M [facility] Rx#:[id number] Oral 240 Output: Urine 200 1050 400 Other: Voiding Method External Catheter External Catheter External Catheter # Voids 1 - Exam Elderly female lying in bed Unlabored breathing Sleepy in no distress - Labs CBC & Chem 7: 01/31/25 07:39 01/31/25 07:39 Labs: Abnormal Lab Results - Last 24 Hours (Table) 01/27/25 01/30/25 Range/Units 06:24 05:43 Sodium 136 L (137-145) mmol/L Carbon Dioxide 21 L (22-30) mmol/L Creatine Kinase 2677 H* (30-135) U/L Myoglobin 992 H (<=58) ng/mL Microbiology - Last 24 Hours (Table) 01/28/25 05:58 Blood Culture - Preliminary Blood Assessment and Plan (1) Positive blood culture Current Visit: Yes Status: Acute Code(s): R78.81 - BACTEREMIA SNOMED Code(s): 921880525 (2) UTI (urinary tract infection) Current Visit: Yes Status: Acute Code(s): N39.0 - URINARY TRACT INFECTION, SITE NOT SPECIFIED SNOMED Code(s): 85767690 (3) Leukocytosis Current Visit: Yes Status: Acute Code(s): D72.829 - ELEVATED WHITE BLOOD CELL COUNT, UNSPECIFIED SNOMED Code(s): 171277591 Plan: 1patient did have a positive blood culture with staph epi which is more likely skin contamination rather than true pathogen, blood culture repeat has been negative so far 2patient also have elevated white count source possibly urinary with urine currently growing Klebsiella that is sensitive to ceftriaxone 3the patient white count trending down as of yesterday, to continue with Rocephin while inpatient and monitor clinical course closely Dictation was produced using [employer] dictation software. please excuse any grammatical, word or spelling errors. Time with Patient: Less than 30
--- NOTE | 2025-01-31 13:07 | P.PN ---
Subjective Progress Note Date: 01/31/25 Principal diagnosis: Reason for follow-up is UTI and positive blood culture Patient is a 74-year-old female with a past medical history significant for Coronary Artery Disease (CAD), Chest Pain / Angina, CVA/TIA, Hyperlipidemia, Hypertension, Myocardial Infarction ([place]), Osteoarthritis (OA), patient has been brought to the hospital after the patient was found to be on the floor there was concern for mental status change low-grade fever positive UA and concern for symptomatic UTI prompting this consultation. On today's evaluation that is 01/31/2025, Patient is afebrile this morning patient denies having any chest pain shortness of breath or cough, the patient is currently on room air, patient denies any abdominal pain no diarrhea no nausea no vomiting seem to be slightly more awake and alert today. Patient white count 7.4, creatinine 0.77 CK down to 936 blood culture repeat negative urine with Klebsiella Objective - Vital Signs Vital signs: Vital Signs Temp 98.0 F 01/31/25 08:00 Pulse 69 01/31/25 08:00 Resp 18 01/31/25 08:00 BP 146/83 01/31/25 08:00 Pulse Ox 97 01/31/25 08:00 FiO2 Intake & Output 01/30/25 01/31/25 01/31/25 18:59 06:59 18:59 Intake Total 720 100 480 Output Total 600 200 Balance 120 -100 480 Weight 113.5 kg Intake: Oral 720 100 480 Output: Urine 600 200 Other: Voiding Method Toilet External Catheter External Catheter Diaper # Bowel Movements 1 - Exam Elderly female lying in bed Unlabored breathing Sleepy in no distress - Labs CBC & Chem 7: 01/31/25 07:39 01/31/25 07:39 Labs: Abnormal Lab Results - Last 24 Hours (Table) 01/31/25 01/31/25 Range/Units 07:39 07:39 Hgb 11.2 L (11.4-16.0) gm/dL Chloride 108 H (98-107) mmol/L Calcium 8.3 L (8.4-10.2) mg/dL Creatine Kinase 936 H (30-135) U/L Microbiology - Last 24 Hours (Table) 01/28/25 05:58 Blood Culture - Preliminary Blood Assessment and Plan (1) Positive blood culture Current Visit: Yes Status: Acute Code(s): R78.81 - BACTEREMIA SNOMED Code(s): 344000376 (2) UTI (urinary tract infection) Current Visit: Yes Status: Acute Code(s): N39.0 - URINARY TRACT INFECTION, SITE NOT SPECIFIED SNOMED Code(s): 52936748 (3) Leukocytosis Current Visit: Yes Status: Acute Code(s): D72.829 - ELEVATED WHITE BLOOD CELL COUNT, UNSPECIFIED SNOMED Code(s): 298491573 Plan: 1patient did have a positive blood culture with staph epi which is more likely skin contamination rather than true pathogen, blood culture repeat has been negative so far 2patient also have elevated white count source possibly urinary with urine currently growing Klebsiella that is sensitive to ceftriaxone 3the patient white count has normalized continue with Rocephin while inpatient finishing therapy with oral Ceftin x few days on discharge discussed with admitting physician Dictation was produced using [employer] dictation software. please excuse any grammatical, word or spelling errors.
--- NOTE | 2025-01-31 13:20 | P.DS ---
Providers Date of admission: 01/25/25 17:06 Attending physician: Dragan Oconnell MD Consults: 01/25/25 17:05 Consult Physician Routine Consulting Provider: Devendra Desir Consult Reason/Comments: rhabdo Do you want consulting provider notified?: Yes 01/26/25 19:11 Consult Physician Routine Consulting Provider: Benjamin Bello Consult Reason/Comments: rule out stroke , weakness of right arm , has pacemaker Do you want consulting provider notified?: Yes 01/27/25 09:01 Consult Physician Routine Consulting Provider: Elizabeth Arriola Consult Reason/Comments: bacteremia Do you want consulting provider notified?: Yes 01/27/25 14:32 Consult Physician Routine Consulting Provider: Richard Loo Consult Reason/Comments: right carotid stenosis Do you want consulting provider notified?: Yes Primary care physician: Stated None Hospital Course: Discharge diagnoses: Acute urinary tract infection Sepsis with leukocytosis and tachycardia recurrent falls: Rhabdomyolysis--traumatic, secondary to recurrent falls Positive blood culture with Staph epidermidis, likely contamination Right internal carotid artery stenosis between 50 to 69% with focal stenosis of the right carotid bulb Weakness and distal toes/fingers numbness of both right upper extremity and left lower extremity, looks chronic but patient is inconsistent Forgetfulness possible of elements of vascular dementia and Alzheimer dementia, needs evaluation as an outpatient Lactic acidemia, improved Hypertension urgency Leukocytosis on chronic problem of leukocytosis Toxic metabolic encephalopathy Weakness of the right upper extremity and left upper extremity. Could be secondary to fall. Rule out joint abnormality, dislocation or fracture. Consider central causes Plan: Urine culture grew Klebsiella, patient received Rocephin during hospitalization, continued on Ceftin at discharge for 3 more days per infectious disease recommendations. Patient treated with IV fluids for rhabdomyolysis, CPK trending down, ultrasound of the kidneys was unremarkable, nephrology was consulted. Nephrology team consulted, rhabdomyolysis likely secondary to recurrent falls, on IV fluids, hold statin. Continue with aspirin Hold statin for 1 week, PCP to follow-up with repeat CMP checked in 1 week and resume rosuvastatin I will switch Lipitor with close monitoring of CMP. Neurology consulted--MRI brain showed right basal ganglia, right rubi radiator hyperdense foci, could be tiny intraparenchymal hemorrhage versus calcification, on nonspecific white matter changes. Neuro recommended aspirin, outpatient EMG and NCT, EEG. CT angio neck showed 50% stenosis of right ICA, no significant stenosis of left ICA. Vascular surgery consulted, recommended outpatient follow-up for carotid a rtery disease. CT lumbar spine showed no acute fracture, mild to moderate multilevel degenerative disc disease. Right shoulder and cervical spine x-ray reviewed Pain management consulted Hospital course: This is a pleasant 74 years old female who presents for a fall. Her neighbor called EMS for her. Also her used to take care of her but he went to senior living yesterday and he cannot take care of her anymore. And neighbor found her on the floor. As per patient the neighbor was noticing that she was not acting right lately and she looked weird. Patient states she felt few times about 6-7 times over the last 1 to 2 weeks she is falling about 3 times per week. She reports some diarrhea for about 1 to 2 weeks but no abdominal pain or vomiting. She denies specific symptoms for me like dysuria or urgency she denies chest pain or dyspnea but she has chronic cough with no phlegm. She denies headache dizziness. She had called recently with sneezing Currently she complains from abdominal pain about 2 to 2 months mild in the epigastric area. She has also left hip pain more than 1 month ago. Her right arm feels weak for about 2 months and her left leg feels weak for about 2-1/2 months Patient is afebrile She is tachycardic with heart rate 1 26-114 Blood pressure is acceptable She has leukocytosis of 26.9, baseline about 10-19. Liver enzymes mildly elevated. Rest of CBC, BMP, LFT were unremarkable Urine analysis is highly suspicious for infection. Troponin is negative at 0.03. Lactic acid elevated 5.1 Creatinine kinase elevated 2105 Alcohol level is less than 10 Pelvic x-ray is negative. Chest x-ray showing no acute process CT of the head and neck is negative for acute process. 01/23 Patient is more awake, still little bit confused and to the surrounding She denies any pain, she is asking if she can go home today. She complains from dysuria and Deal catheter in place. Urine culture is pending and currently on Rocephin. Renal ultrasound showing no hydronephrosis Patient mentation slightly improved. However she still complains from weakness in her both right upper extremity and left lower extremities. Patient when I asked her today the duration she states about a year, although yesterday she mentioned 2 months and 2 months and a half. Then patient states she is not sure. Also complains from some tingling in her both fingers and toes on both sides. No headache dizziness blurred vision or slurred speech. She remains on IV fluid normal saline 100 mL/h. Creatinine kinase looks the same to 287. Liver enzymes only slightly better. Leukocytosis significantly improved down to 17 which is close to her baseline. 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 However she still have generalized weakness. She still have weakness in the right upper extremity with limitation in moving her arm above her head. Little discomfort in her right shoulder. Will check shoulder and cervical spine chest x-ray.. Also she is complaining from left lower leg weakness. Patient was little bit inconsistent in her history, initially said that this is for 2 months, then yesterday said it is for 1 year and today she said it has been going on for 3 weeks. However patient is better historian today. No abdominal pain suprapubic pain and tenderness. Blood culture was positive with Staph epidermidis. This could be contamination. Patient already on ceftriaxone. Will consult infectious disease team. Creatinine kinase still elevated to 5.5. Rest of BMP and magnesium are within the reference range. Rest of labs pending Urine cultures growing gram-negative bacilli Carotid Doppler: Moderate narrowing of the right internal carotid artery between 50 and 69%. Mild narrowing of the left internal carotid artery of less than 50%. There may be some focal stenosis of the right carotid bulb with mild elevated velocity of 216 cm per S consider additional workup 01/28--- patient was seen and examined today. Mentation is better as compared to yesterday. Vascular surgery evaluated the patient, CT angio showed 50% right ICA stenosis, vascular surgery recommended conservative treatment, outpatient follow-up. Remains on Rocephin for UTI. PT/OT/DELI/BAKERY ASSOCIATE consulted. MRI brainshowed subtle hyperdense foci in right basal ganglia, right rubi radiator, could be intraparenchymal tiny hemorrhage versus calcification. Neurology consulted. CT lumbar spine showed mild to moderate degenerative disc disease. CPK is trending up, statin has been held since yesterday, nephrology following, increased IV fluids. Renal function stable. 03/02--patient was seen and examined today. Sitter at bedside. Patient is confused. Patient had hallucinations overnight and in the morning. No neurodeficits. Patient remains on Rocephin. Repeat blood cultures per infectious disease. Staphylococcus epi likely contaminant. Vascular surgery following for carotid artery stenosis, recommended outpatient follow-up. CPK trending down, nephrology following, recommended to continue IV fluids. 01/30--patient was seen and examined today. Sitter at bedside. Patient still confused, had a hallucination in the morning. Afebrile, heart rate 67, respiratory rate 20, blood pressure 133/76, saturating 97% on room air. Sodium 136 potassium 4.0 chloride 107 CO2 21 BUN 7 creatinine 0.63. CPK trending down to 2677. Nephrology following, recommended to decrease IV fluids. On Rocephin for UTI. 01/31--patient was seen and examined today. Mentation is better. at bedside. Per patient does have mild memory issues at home and is forgetful at times concerning for dementia. did not want patient to go to subacute rehab or long-term care. Patient's condition vital stable at discharge. CPK trending down. Renal function stable. Patient continued on aspirin, statin held for 1 week until follow-up with the PCP. Patient started on metoprolol and Norvasc for elevated blood pressure. Please refer to [facility] rec and assessment plan for further details. Follow-up with PCP in 1 week. Follow-up with neurology as outpatient Follow-up with vascular surgery as outpatient. PHYSICAL EXAMINATION: GENERAL: The patient is A&O x3, NAD HEENT: EOMI, Sclerae anicteric, Moist Mucous membranes Neck: Supple, Non tender, No JVD PULMONARY: Equal breath souds B/L, No wheezing, No crackles. CARDIOVASCULAR: S1, S2 present. No murmurs, rubs, or gallops. ABDOMEN: Soft, nontender, nondistended, normoactive bowel sounds. No guarding or rebound tenderness. MUSCULOSKELETAL: No edema, No cyanosis. No clubbing. Normal ROM. Intact peripheral pulses. NEUROLOGICAL: CN 2-12 grossly intact. No FND SKIN: No rashes. Dictation was produced using [employer] software. please excuse any grammatical, word or spelling errors. Patient Condition at Discharge: Fair Plan - Discharge Summary New Discharge Prescriptions: New Aspirin 81 mg PO DAILY #90 tab amLODIPine [Norvasc] 10 mg PO DAILY #30 tab cefuroxime axetiL [Ceftin] 500 mg PO BID 3 Days #6 tab Metoprolol Tartrate [Lopressor] 100 mg PO BID #60 tab Acetaminophen Tab [Tylenol] 650 mg PO Q6HR PRN tab PRN Reason: Mild Pain Or Fever > 100.5 Continue Zolpidem [Ambien] 10 mg PO HS #4 tab Discontinued Rosuvastatin [Crestor] 20 mg PO DAILY Metoprolol Tartrate [Lopressor] 25 mg PO DAILY Discharge Medication List Zolpidem [Ambien] 10 mg PO HS #4 tab 10/23/21 [Rx] Acetaminophen Tab [Tylenol] 650 mg PO Q6HR PRN tab 01/31/25 [Rx] Aspirin 81 mg PO DAILY #90 tab 01/31/25 [Rx] Metoprolol Tartrate [Lopressor] 100 mg PO BID #60 tab 01/31/25 [Rx] amLODIPine [Norvasc] 10 mg PO DAILY #30 tab 01/31/25 [Rx] cefuroxime axetiL [Ceftin] 500 mg PO BID 3 Days #6 tab 01/31/25 [Rx] Follow up Appointment(s)/Referral(s): Natali Ayala DO [STAFF PHYSICIAN] - 2 Weeks (Follow-up for right internal carotid stenosis) None,Stated [Primary Care Provider] - 1-2 days [facility] [NON-STAFF] - Discharge Disposition: HOME WITH HOME HEALTH SERVICES
[2025-01-31 14:22] VITALS: BP 141/83; PULSE 60
--- NOTE | 2025-01-31 15:06 | P.PN ---
Subjective Progress Note Date: 01/31/25 Principal diagnosis: Fall No acute changes. CK continues to improve. EEG abnormal consistent with metabolic encephalopathy. No new focal deficits. Objective - Vital Signs Vital signs: Vital Signs Temp 98.0 F 01/31/25 08:00 Pulse 69 01/31/25 08:00 Resp 18 01/31/25 08:00 BP 146/83 01/31/25 08:00 Pulse Ox 97 01/31/25 08:00 FiO2 Intake & Output 01/30/25 01/31/25 01/31/25 18:59 06:59 18:59 Intake Total 720 100 240 Output Total 600 200 Balance 120 -100 240 Weight 113.5 kg Intake: Oral 720 100 240 Output: Urine 600 200 Other: Voiding Method Toilet External Catheter External Catheter Diaper # Bowel Movements 1 - Exam General appearance: The patient is alert, appears in no acute distress. Obese. HET: Head is normocephalic and atraumatic. Pupils are equal and reactive. Neck: Supple. Lungs: Equal expansion, normal respiratory effort. Abdomen: Soft, nondistended. Extremities: Normal skin color and turgor. No cyanosis or clubbing. Neurological: Bilateral upper and lower extremity weakness. - Labs CBC & Chem 7: 01/31/25 07:39 01/31/25 07:39 Labs: Abnormal Lab Results - Last 24 Hours (Table) 01/27/25 01/31/25 01/31/25 Range/Units 06:24 07:39 07:39 Hgb 11.2 L (11.4-16.0) gm/dL Chloride 108 H (98-107) mmol/L Calcium 8.3 L (8.4-10.2) mg/dL Creatine Kinase 936 H (30-135) U/L Aldolase 10.6 H (1.2-7.6) U/L Microbiology - Last 24 Hours (Table) 01/28/25 05:58 Blood Culture - Preliminary Blood Assessment and Plan Assessment: 1. Right internal carotid artery stenosis measuring 50% at the carotid bulb on CTA, 50 to 69% on imaging of ultrasound 2. Rhabdomyolysis secondary to fall 3. Acute UTI 4. Positive blood culture appears to be secondary to contamination Plan: Patient is cleared from vascular surgery for discharge. No plans on surgical intervention at this time. Recommend outpatient follow-up with vascular surgery for carotid surveillance. Thank you for this consultation, we will sign off at this time. The impression and plan of care has been dictated as directed. I performed a history and examination of this patient, discussed the same with the dictator. I agree with the dictator's note ,documented as a scribe. Any additional findings or plans will be noted.
== END 2025-01-31 14:40 | disposition home health service (06) | DRG 871 ==
LOC: EC 13:30 → 3SCARD 17:06
PROVIDERS: ADMIT Internal Medicine; ATTEND Internal Medicine
PROC: 05HA33Z Insertion of Infusion Device into Left Brachial Vein, Percutaneous Approach (ICD-10-PCS; 2025-01-27)
PROC: 4A10X4Z Monitoring of Central Nervous Electrical Activity, External Approach (ICD-10-PCS; principal; 2025-01-30)
DX: A41.59 Other Gram-negative sepsis (principal); G92.8 Other toxic encephalopathy; E87.20 Acidosis, unspecified; I16.0 Hypertensive urgency; T79.6XXA Traumatic ischemia of muscle, initial encounter; I49.5 Sick sinus syndrome; I65.23 Occlusion and stenosis of bilateral carotid arteries; N39.0 Urinary tract infection, site not specified; N17.9 Acute kidney failure, unspecified; E78.5 Hyperlipidemia, unspecified; B95.7 Other staphylococcus as the cause of diseases classified elsewhere; I10 Essential (primary) hypertension; Z91.81 History of falling; M19.90 Unspecified osteoarthritis, unspecified site; E87.6 Hypokalemia; I25.10 Atherosclerotic heart disease of native coronary artery without angina pectoris; I25.2 Old myocardial infarction; R29.6 Repeated falls; W18.30XA Fall on same level, unspecified, initial encounter; Z79.899 Other long term (current) drug therapy; Z82.49 Family history of ischemic heart disease and other diseases of the circulatory system; Z86.73 Personal history of transient ischemic attack (TIA), and cerebral infarction without residual deficits; Z95.0 Presence of cardiac pacemaker; Z96.642 Presence of left artificial hip joint; Z88.8 Allergy status to other drugs, medicaments and biological substances
CPT/HCPCS: 36415; 70450; 70498; 71046; 72040; 72125; 72131; 72170; 73502; 76705; 76770; 80048; 80053; 80076; 80320; 81001; 82085; 82140; 82550; 82607; 82746; 83605; 83615; 83735; 83874; 84443; 84484; 85025; 85610; 85730; 87040; 87077; 87086; 87186; 93005; 93306; 93880; 95816; 96361; 96365; 96372; 96375; 99291